=== PATIENT | female | born 2000 | race Caucasian/White ===

== ENCOUNTER 2021-02-05 17:14 | Emergency (ER) | payer MEDICAID, SELFPAY ==
[2021-02-05 17:51] VITALS: BP 141/87; PULSE 105; RESP 16; TEMP 36.3; O2SAT 99; BMI 36.2
--- NOTE | 2021-02-05 18:11 | ECG_ITS ---
[facility], 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 Measurements Intervals [place] Rate: 95 P: 65 OK: 169 QRS: 14 QRSD: 85 T: 30 QT: 353 QTc: 444 Interpretive Statements SINUS RHYTHM POSSIBLE LEFT ATRIAL ENLARGEMENT [-0.1mV P WAVE IN V1/V2] LOW QRS VOLTAGE IN PRECORDIAL LEADS [QRS DEFLECTION < 1.0 mV IN CHEST LEADS] No previous ECG available for comparison Electronically Signed On 02-06-2021 7:34:13 CDT by Christina Freeman M.D. [id number]
--- NOTE | 2021-02-05 18:56 | ED_ITS ---
HPI - General Adult General: Chief complaint: General Medical Stated complaint: heartburn Time Seen by Provider: 02/05/21 18:56 History of Present Illness: HPI narrative: 20-year-old female comes in today with epigastric abdominal pain. Patient reports that she has problems with GERD. Patient this time takes omeprazole twice a day. Patient reports has been worse over the last few weeks. Patient appears well. Patient appears in mild to moderate discomfort. Patient does report that she has had seek treatment at the ER one time before and received a GI cocktail with good results. Patient denies any blood in vomit or stool. Patient reports irregular bowel movements. Patient denies any other symptoms or concerns. Associated symptoms: Reports nausea Review of Systems General: Reports: 10 or more systems reviewed and unremarkable except in HPI and below GI: Reports: abdominal pain and nausea [facility] ED Female Reproductive History: Date of last menstrual period: 01/26/21 Physical Exam Const: COMMON NORMALS: no acute distress and patient oriented x3 GENERAL APPEARANCE: cooperative HENMT: COMMON NORMALS: normocephalic, TM's normal bilaterally and Normal external nose present HEAD & SCALP: normal to inspection and normocephalic NOSE: Normal external nose present TYMPANIC MEMBRANE: TM's normal bilaterally MOUTH: Normal oral and palatal mucosa present THROAT: posterior oropharynx normal Eye: GENERAL EYE: appearance normal, both eyes and all related structures Neck/C-Spine: COMMON NORMALS: full ROM Lymph: LYMPHATIC: no lymphadenopathy noted Chest: COMMONS NORMALS: normal inspection of the chest Resp: COMMON NORMALS: normal respiratory effort EFFORT & INSPECTION: Yes able to speak in complete sentences Cardio: COMMON NORMALS: regular rate and regular rhythm RATE: regular rate RHYTHM: regular rhythm GI: COMMON NORMALS: Soft to palpation PALPATION: Yes Soft to palpation, Yes Tenderness to palpation present (GI) (epigastric), No Guarding due to palpation present (GI) and No Rebound tenderness present : COMMON NORMALS: Yes no CVA tenderness BLADDER/KIDNEY EXAM: Yes no CVA tenderness Back/Pelvis: COMMON NORMALS: no CVA tenderness and thoracic and lumbar spine normal to inspection Extremity: COMMON NORMALS: normal to inspection Neuro: COMMON NORMALS: patient oriented x3 and moves all extremities Psych: COMMON NORMALS: mental status grossly normal and cooperative Skin: COMMON NORMALS: no rashes or lesions noted GENERAL SKIN EXAM: no rashes or lesions noted Course Vital Signs: Vital signs: Vital Signs Temperature 97.3 F L 02/05/21 17:51 Pulse Rate 105 H 02/05/21 17:51 Respiratory Rate 16 02/05/21 17:51 Blood Pressure 141/87 02/05/21 17:51 Pulse Oximetry 99 02/05/21 17:51 MDM - General Adult MDM Narrative: Medical decision making narrative: 20-year-old female comes in today with complaints of epigastric discomfort. Patient reports this is similar to previous episodes of her exacerbation of gastritis. On exam abdomen soft nontender. Some mild tenderness is noted with deep palpation of the midepigastrium. Respirations are even lungs are clear to auscultation. Vital signs are normal. Differential diagnosis includes but not limited to gallbladder disease, GERD, peptic ulcer disease, gastritis. Laboratory values were unremarkable except for some mild anemia. Metabolic panel and liver enzymes were normal. Urinalysis was clear. Feel the patient probably has an exacerbation of her gastritis. We will change omeprazole to pantoprazole 40 mg twice a day for the next 10 days. Patient will also be set up with specialist for EGD for further evaluation and treatment. Patient was agreeable to plan and need for follow-up appointment. Lab Data: Labs: Lab Results 02/05/21 02/05/21 02/05/21 Range/Units 19:10 19:10 19:25 WBC 12.8 (4.5-13.0) 10^3/ uL RBC 3.66 L (4.1-5.3) 10^6/u L Hgb 10.3 L (11.5-15.3) g/dL Hct 31.9 L (37.0-47.0) % MCV 87.2 (81-99) fL MCH 28.1 (28.0-34.0) pg MCHC 32.3 (30.0-36.0) g/dL RDW 12.6 (12.1-15.1) % Plt Count 424 H (130-400) 10^3/c mm MPV 8.8 (7.4-10.4) fL Neut % (Auto) 64.7 % Lymph % (Auto) 28.4 % [place] % (Auto) 5.5 % Eos % (Auto) 0.5 % Baso % (Auto) 0.5 % Neut # (Auto) 8.26 H (1.8-8.0) 10^3/u L Lymph # (Auto) 3.6 (1.5-6.5) 10^3/u L [place] # (Auto) 0.7 (0.2-0.9) 10^3/u L Eos # (Auto) 0.1 (0.0-0.8) 10^3/u L Baso # (Auto) 0.1 (0.0-0.1) 10^3/u L Nucleated RBC % (a uto) 0 % Nucleated RBCs # 0.0 /100WBC Sodium 138 (136-145) mmol/L Potassium 4.3 (3.5-5.1) mmol/L Chloride 103 (98-107) mmol/L Carbon Dioxide 23 (22-29) mmol/L Anion Gap 16.3 (5-19) BUN 9 (6-20) mg/dL Creatinine 0.5 (0.5-0.9) mg/dL GFR Calculation 157.3 H (90-130) mL/min Glucose 79 (65-115) mg/dL Calculated Osmolal ity 284 L (285-295) mOsm/k g Calcium 9.2 (8.5-10.5) mg/dL Total Bilirubin 0.3 (0.15-1.2) mg/dL AST 16 (0-32) U/L ALT 14 (0-33) U/L Alkaline Phosphata se 91 (35-105) IU/L Total Protein 7.2 (6.6-8.7) g/dL Albumin 4.6 (3.5-5.2) g/dL Globulin 2.6 (1.3-4.6) g/dL Lipase 21 (13-60) U/L Ser , Cedric i-Qnt 0.50 mIU/mL Urine Color Yellow (Yellow) Urine Appearance Clear (CLEAR) Urine pH 5 (5-7) Ur Specific Gravit y 1.015 (1.005-1.030) Urine Protein Neg (Negative) Urine Glucose (UA) Norm (Normal) Urine Ketones Negative (Negative) Urine Blood Neg (Negative) Urine Nitrate Negative (Negative) Urine Bilirubin Neg (Negative) Urine Urobilinogen Norm (Negative) mg/dL Ur Leukocyte Cynthia ase Negative (Negative) EKG Data^: EKG 1: Attestation: I personally reviewed and interpreted this EKG as follows: (191, EKG shows a sinus rhythm with a regular rate at 95 bpm, no ST elevation, no ectopy, no prior exam is available for comparison.) Discharge Plan Discharge Patient Disposition: Home Clinical Impression: Gastritis Qualifiers: Gastritis type: unspecified gastritis Chronicity: chronic Gastritis bleeding: presence of bleeding unspecified Qualified Code(s): K29.50 - Unspecified chronic gastritis without bleeding Condition: Stable Prescriptions: New pantoprazole 40 mg tablet,delayed release (DR/EC) 40 mg PO BID 10 Days Qty: 20 RF: 0 Discharge Orders: Discharge ED (Routine); Ordered 02/05/21 Ordered By: Dc Osullivan Discharge Diet: Usual diet Discharge Activity: Increase activity as tolerated Patient Instructions: Diet for Ulcers and Gastritis (ED), Opioid Safety Activity Restrictions/Additional Instructions: Avoid carbonated beverages. Avoid eating 2 hours prior to laying down at bedtime. Avoid any caffeinated beverages, nicotine-containing products, or other foods that aggravate abdomen. Take medication 30 minutes prior to each meal for the next 10 days. Follow-up with primary care for further treatment. Case management will contact you regarding an appointment with a surgeon or GI specialist for EGD for further evaluation of gastritis. Return to the emergency department for high fever, or blood in vomit or stool. Coding Level of Care Code ED Flight Control Specialist for Chg Fwd Exam Comprehensive
[2021-02-05] MEDS: sodium chloride 0.9% 1,000 ML 999 ML IV (19:10)
[2021-02-05] MEDS: lidocaine 2% viscous 15 ML, aluminum-mag hydrox-simethicon 30 ML, sucralfate oral liq 1 GM PO (19:23)
[2021-02-05 19:31] LABS: Basophils # 0.1 10^3/uL (0.0-0.1); Basophils % 0.5 %; Eosinophils # 0.1 10^3/uL (0.0-0.8); Eosinophils % 0.5 %; Hematocrit 31.9 % (37.0-47.0); Hemoglobin 10.3 g/dL (11.5-15.3); Lymphocytes # 3.6 10^3/uL (1.5-6.5); Lymphocytes % 28.4 %; Mean Corpuscular HGB Conc 32.3 g/dL (30.0-36.0); Mean Corpuscular Hemoglobin 28.1 pg (28.0-34.0); Mean Corpuscular Volume 87.2 fL (81-99); Mean Platelet Volume 8.8 fL (7.4-10.4); Monocytes # 0.7 10^3/uL (0.2-0.9); Monocytes % 5.5 %; Neutrophils # 8.26 10^3/uL (1.8-8.0); Neutrophils % 64.7 %; Nucleated Red Blood Cells % 0 %; Platelet Count 424 10^3/cmm (130-400); Red Blood Count 3.66 10^6/uL (4.1-5.3); Red Cell Distribution Width 12.6 % (12.1-15.1); White Blood Count 12.8 10^3/uL (4.5-13.0)
[2021-02-05 19:57] LABS: Add Urine Microscopic? NO; Charge for UA Resulting for Rev
[2021-02-05 20:29] LABS: Alanine Aminotransferase 14 U/L (0-33); Albumin Level 4.6 g/dL (3.5-5.2); Alkaline Phosphatase 91 IU/L (35-105); Anion Gap 16.3 (5-19); Aspartate Amino Transferase 16 U/L (0-32); Blood Urea Nitrogen 9 mg/dL (6-20); Calcium 9.2 mg/dL (8.5-10.5); Carbon Dioxide 23 mmol/L (22-29); Chloride 103 mmol/L (98-107); Globulin 2.6 g/dL (1.3-4.6); Glomerular Filtration Rate 157.3 mL/min (90-130); Glucose 79 mg/dL (65-115); Lipase 21 U/L (13-60); Osmolality Calculated 284 mOsm/kg (285-295); Potassium 4.3 mmol/L (3.5-5.1); Sodium 138 mmol/L (136-145); Total Bilirubin 0.3 mg/dL (0.15-1.2); Total Protein 7.2 g/dL (6.6-8.7)
[2021-02-05 20:38] LABS: Bilirubin Urine Neg (Negative); Blood Urine Neg (Negative); Glucose Urine UA Norm (Normal); Ketones Urine Negative (Negative); Leukocyte Esterase Urine Negative (Negative); Nitrate Urine Negative (Negative); Protein Urine Neg (Negative); Specific Gravity, Urine 1.015 (1.005-1.030); Urine Appearance Clear (CLEAR); Urine Color Yellow (Yellow); Urobilinogen Urine Norm (Negative); pH Urine 5 (5-7)
[2021-02-05] MEDS: pantoprazole 40 mg SDV IVP (21:17)
--- NOTE | 2021-02-05 21:18 | PC.NURSE ---
protonix was administered at 2044 as ordered
[2021-02-05 21:19] VITALS: BP 138/82; PULSE 85; RESP 18; O2SAT 100
--- NOTE | 2021-02-05 21:19 | PC.NURSE ---
patient states she is feeling a little better now
--- NOTE | 2021-02-10 10:01 | DCPLANNER ---
global project manager had message to schedule a follow up appointment for patient with general surgery for EGD. global project manager emailed patients information to both Malinda and Patsy at [facility] General Surgery. Patients information will be printed and reviewed. Clinic will call patient with appointment information.
--- NOTE | 2021-02-12 15:18 | DCPLANNER ---
Patient has a follow up appointment scheduled for Thursday, February 18, 2021 at 8:[address] Menchaca at [facility] General Surgery. Clinic will call patient with appointment information.
--- NOTE | 2021-02-20 13:47 | DCPLANNER ---
Patient had a follow up appointment scheduled for 02.18.21 with general surgery - patient did attend appointment.
== END 2021-02-05 21:20 | disposition home or self-care (01) ==
PROVIDERS: Emergency Medicine; Emergency Provider Nurse Practitioner Family
DX: K29.50 Unspecified chronic gastritis without bleeding (principal); K21.9 Gastro-esophageal reflux disease without esophagitis
CPT/HCPCS: 80053; 81003; 83690; 84702; 85025; 93005; 96361; 96374; 99283; C9113; J7030

== ENCOUNTER 2021-02-12 16:25 | Emergency (ER) | payer MEDICAID, SELFPAY ==
--- NOTE | 2021-02-12 16:31 | XRR_ITS ---
PROCEDURE INFORMATION: Exam: XR Left Wrist Exam date and time: 02/12/2021 4:31 PM Age: 20 years old Clinical indication: Pain and injury or trauma; Fall; Blunt trauma (contusions or hematomas) and sprain or strain; Wrist; Left; Injury date: 02/12/21; Injury details: Fell while playing with dog TECHNIQUE: Imaging protocol: XR Left wrist. Views: 3 or more views. COMPARISON: No relevant prior studies available. FINDINGS: Bones/joints: Normal. Soft tissues: Normal. XR/XR wrist LT min 3V* [id number] IMPRESSION: No acute findings.
[2021-02-12 16:32] VITALS: BP 131/81; PULSE 93; RESP 18; TEMP 37.1; O2SAT 97
--- NOTE | 2021-02-12 16:52 | W.ED.UPPEXIN ---
HPI - Extremity Injury (Upper) General: Chief Complaint: Extremity Injury, Upper Stated Complaint: left wrist injury Time Seen by Provider: 02/12/21 16:39 Source: patient Mode of arrival: ambulatory Limitations: no limitations History of Present Illness: HPI narrative: Patient is a nice 20-year-old female presents to ED today for evaluation following a left wrist injury. Patient tells me she was at outside when her dog accidentally tripped her causing her to fall onto her wrist. She has no other injuries or concerns regarding the fall. MD complaint: injury to: left and wrist Onset (ago): hour(s) Place: home Severity: moderate Relieving factors: immobilization Exacerbating factors: movement of extremity Context: fall Associated symptoms: Reports no associated symptoms; Denies neck pain or weakness in extremities Review of Systems Musc: Reports: joint pain (L wrist); Denies: neck pain, back pain, extremity pain, extremity swelling or joint swelling Neuro: Denies: numbness in extremities, weakness in extremities or sensory changes [facility] ED Female Reproductive History: Date of last menstrual period: 01/26/21 Physical Exam Const: COMMON NORMALS: no acute distress, average body habitus, patient oriented x3, no limitations, healthy appearing, alert and well nourished Extremity: GENERAL: Yes normal exam except as noted LEFT UPPER EXTREMITY: Yes wrist (TTP distal radial/ulnar wrist; no deformity) Left wrist: Yes ROM (full but painful ROM) and Yes neurovascular exam (normal) Neuro: COMMON NORMALS: patient oriented x3, moves all extremities, no focal motor deficits and no sensory deficits noted SENSORIUM/ORIENTATION: Yes alert Skin: COMMON NORMALS: no rashes or lesions noted GENERAL SKIN EXAM: no rashes or lesions noted TRAUMA: no lacerations or abrasions Course Vital Signs: Vital signs: Vital Signs Temperature 98.7 F 02/12/21 16:32 Pulse Rate 93 02/12/21 16:32 Respiratory Rate 18 02/12/21 16:32 Blood Pressure 131/81 02/12/21 16:32 Pulse Oximetry 97 02/12/21 16:32 MDM - Extremity Injury (Upper) Imaging Data^: XR L wrist: My impression: NAD Discharge Plan Discharge Patient Disposition: Home Clinical Impression: Left wrist sprain Qualifiers: Encounter type: initial encounter Qualified Code(s): S63.502A - Unspecified sprain of left wrist, initial encounter Condition: Stable Prescriptions: No Action pantoprazole 40 mg tablet,delayed release (DR/EC) 40 mg PO BID 10 Days Qty: 20 RF: 0 Discharge Orders: Discharge ED (Routine); Ordered 02/12/21 Ordered By: Kandace Gonzales Patient Instructions: Wrist Sprain (ED) Coding Level of Care Code ED Field Sales Representative for Yesica Manzo
[2021-02-12 17:07] VITALS: PULSE 88
[2021-02-12 17:09] VITALS: PULSE 88; RESP 18; TEMP 37.1; O2SAT 97
== END 2021-02-12 17:10 | disposition home or self-care (01) ==
PROVIDERS: Emergency Provider Physician Assistant
DX: S63.502A Unspecified sprain of left wrist, initial encounter (principal); W01.0XXA Fall on same level from slipping, tripping and stumbling without subsequent striking against object, initial encounter
CPT/HCPCS: 73110; 99282

== ENCOUNTER → 2021-02-17 15:37 | Outpatient (BNVA) | payer OTHER, MEDICAID, SELFPAY | PROVIDERS: Referring Provider Nurse Practitioner; Visit Provider Specialist | DX: S63.502A Unspecified sprain of left wrist, initial encounter (principal); M25.522 Pain in left elbow; G56.22 Lesion of ulnar nerve, left upper limb; M79.642 Pain in left hand; X58.XXXA Exposure to other specified factors, initial encounter | CPT/HCPCS: 73080; 73110 ==

== ENCOUNTER 2021-03-06 21:46 | Emergency (ER) | payer MEDICAID, SELFPAY ==
[2021-03-06 21:59] VITALS: BP 124/70; PULSE 80; RESP 16; TEMP 36.9; O2SAT 98; BMI 35.9
--- NOTE | 2021-03-06 22:01 | ED_ITS ---
HPI - URI/Sore Throat General: Chief Complaint: Ear Stated Complaint: Ear Pain Time Seen by Provider: 03/06/21 22:01 History of Present Illness: HPI Narrative: 20-year-old female comes in today with complaints of ear pain to the right ear. Patient reports pain for the last 3 days. 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 Associated symptoms: Reports ear or mastoid pain (Right) Review of Systems General: Reports: 10 or more systems reviewed and unremarkable except in HPI and below ENMT: Reports: ear or mastoid pain (Right) PFSH ED PFSH: Medical History Anxiety GERD (gastroesophageal reflux disease) Surgical History History of left knee surgery History of tonsillectomy and adenoidectomy Social History Smoking and tobacco status: never smoked Female Reproductive History: Date of last menstrual period: 01/26/21 Physical Exam Const: COMMON NORMALS: no acute distress and patient oriented x3 GENERAL APPEARANCE: cooperative HENMT: COMMON NORMALS: normocephalic and Normal external nose present HEAD & SCALP: normal to inspection and normocephalic NOSE: Normal external nose present TYMPANIC MEMBRANE: TM abnormal TM laterality: right Details: bulging, dull and erythematous and left Details: scarred MOUTH: Normal oral and palatal mucosa present Eye: GENERAL EYE: appearance normal, both eyes and all related structures Neck/C-Spine: COMMON NORMALS: full ROM Chest: COMMONS NORMALS: normal inspection of the chest Resp: COMMON NORMALS: normal respiratory effort EFFORT & INSPECTION: Yes able to speak in complete sentences Cardio: COMMON NORMALS: regular rate and regular rhythm RATE: regular rate RHYTHM: regular rhythm GI: COMMON NORMALS: non-tender Extremity: COMMON NORMALS: normal to inspection Neuro: COMMON NORMALS: patient oriented x3 and moves all extremities Psych: COMMON NORMALS: mental status grossly normal and cooperative Skin: COMMON NORMALS: no rashes or lesions noted GENERAL SKIN EXAM: no rashes or lesions noted Course Vital Signs: Vital signs: Vital Signs Temperature 98.4 F 03/06/21 21:59 Pulse Rate 80 03/06/21 21:59 Respiratory Rate 16 03/06/21 21:59 Blood Pressure 124/70 03/06/21 21:59 Pulse Oximetry 98 03/06/21 21:59 MDM - URI/Sore Throat MDM Narrative: Medical decision making narrative: Patient comes in today with complaints of pain to the right ear. Patient reports discomfort for the last 3 days. On exam we note erythema and bulging to the right tympanic membrane. Left TM is scarred. Respirations are even lungs are clear to auscultation. Skin is warm and dry. Differential diagnosis includes sinusitis, otitis media, otitis externa. Reviewed exam with patient recommended treatment with antibiotics for infection. Patient was also given a dose of steroid for pain and swelling. Patient reported understanding of care plan and need for follow- up or return to the ER. Discharge Plan Discharge Patient Disposition: Home Clinical Impression: Otitis media Qualifiers: Otitis media type: suppurative Chronicity: acute Laterality: right Recurrence: not specified as recurrent Spontaneous tympanic membrane rupture: without spontaneous rupture Qualified Code(s): H66.001 - Acute suppurative otitis media without spontaneous rupture of ear drum, right ear Condition: Stable Prescriptions: New Augmentin 875-125 mg tablet 1 tab PO BID Qty: 14 RF: 0 No Action Dexilant 60 mg capsule,biphase delayed releas 60 mg PO DAILY Qty: 30 RF: 2 sucralfate 1 gram tablet 1 g PO TID Qty: 90 RF: 0 venlafaxine [Effexor XR] 37.5 mg capsule,extended release 24hr 37.5 mg PO DAILY RF: 0 Discharge Orders: Discharge ED (Routine); Ordered 03/06/21 Ordered By: Dc Osullivan Discharge Diet: Usual diet Discharge Activity: Increase activity as tolerated Patient Instructions: Otitis Media (ED), Opioid Safety Activity Restrictions/Additional Instructions: Take antibiotic twice a day for the next 7 days. Use acetaminophen and ibuprofen for pain. Use warm packs to the ear for further comfort. Follow-up with primary care as needed. Return to the ER for new concerns or worsening symptoms. Coding Level of Care Code ED Mushroom Picker for Yesica Manzo
[2021-03-06] MEDS: dexamethasone 4 mg Tablet 10 MG PO (22:18)
[2021-03-06] MEDS: amoxicillin-clav 875-125 mg Tablet 1 TAB PO (22:18)
[2021-03-06] MEDS: ibuprofen 600 mg Tablet PO (22:19)
== END 2021-03-06 22:39 | disposition home or self-care (01) ==
PROVIDERS: Emergency Provider Nurse Practitioner Family
DX: H66.001 Acute suppurative otitis media without spontaneous rupture of ear drum, right ear (principal)
CPT/HCPCS: 99283; J8540

== ENCOUNTER 2021-05-04 13:35 | Emergency (ER) | payer MEDICAID, SELFPAY ==
[2021-05-04 13:41] VITALS: BP 141/87; PULSE 89; RESP 18; TEMP 36.9; O2SAT 100; BMI 35.6
--- NOTE | 2021-05-04 13:53 | XRR_ITS ---
PROCEDURE INFORMATION: Exam: XR Chest Exam date and time: 05/04/2021 1:53 PM Age: 20 years old Clinical indication: Cough and shortness of breath; Additional info: Cough/sob TECHNIQUE: Imaging protocol: XR of the chest. Views: 1 view. COMPARISON: CR Shoulder 2+ views LEFT* [id number] 12/24/2018 6:36 PM FINDINGS: Lungs: Unremarkable. No consolidation. Pleural spaces: Unremarkable. No pleural effusion. No pneumothorax. Heart/Mediastinum: Unremarkable. No cardiomegaly. Bones/joints: Unremarkable. XR/XR chest 1V portable [id number] IMPRESSION: No acute findings. Radiation Dose CTDIVOL = (mGy): DLP = (mGy-cm)
--- NOTE | 2021-05-04 13:54 | W.ED.COVID ---
HPI - COVID General: Chief Complaint: COVID symptoms Stated Complaint: DIFF BREATHING,LOSS VOICE,COUGH,FATIGUESNEEZE,H/A Time Seen by Provider: 05/04/21 13:46 Triage information: Has fever, cough or shortness of breath. History of Present Illness: HPI Narrative: Patient is a 20-year-old female comes to the ED with upper respiratory symptoms. Patient says symptoms started approximately 1 week ago. She endorses having body aches, cough, sore throat and some shortness of breath. Her symptoms started a week ago with a very severe sore throat. She says her sore throat is not gotten any better over the past week. She has also developed nasal drainage congestion and a cough that she describes as being productive in the mornings with a yellowish-green sputum. She has also lost her voice. Patient is fully vaccinated for COVID-19. She does endorse being around a person a week ago who was diagnosed with mono. Patient has had her tonsils removed when she was younger. Denies any fever, chills, abdominal pain, nausea/vomiting, bladder or bowel symptoms. COVID 19 common symptoms: positive non-productive cough, dyspnea, body aches and throat pain; negative fever(s), chills, productive cough, fatigue, headache(s), nasal congestion, nausea, vomiting or diarrhea COVID 19 other sytmptoms: negative chest pain COVID Results: SARS-CoV-2 Antigen (Rapid) Negative (Negative) 05/04/21 14:17 05/04/21 Review of Systems Const: Reports: body aches; Denies: fever(s), chills or fatigue Eyes: Denies: change in vision or eye discomfort ENMT: Reports: throat pain; Denies: odynophagia, nasal discharge or nasal congestion Card: Denies: chest pain, palpitations, edema, swelling of feet/ankles, dyspnea on exertion or orthopnea Resp: Reports: dyspnea and non-productive cough; Denies: productive cough GI: Denies: abdominal pain, nausea, vomiting, diarrhea, constipation or hematochezia : Denies: flank pain, dysuria or hematuria Musc: Denies: neck pain, back pain or extremity swelling Skin/Breast: Denies: rash or new lesions Neuro: Denies: headache(s), numbness in extremities or weakness in extremities PFSH ED PFSH: Medical History Anxiety GERD (gastroesophageal reflux disease) Surgical History History of left knee surgery History of tonsillectomy and adenoidectomy Female Reproductive History: Date of last menstrual period: 01/26/21 Physical Exam Const: COMMON NORMALS: no acute distress, patient oriented x3, healthy appearing and alert GENERAL APPEARANCE: cooperative and comfortable HENMT: COMMON NORMALS: normocephalic HEAD & SCALP: normocephalic MOUTH: Normal oral and palatal mucosa present THROAT: posterior oropharynx normal, uvula midline, posterior oropharynx abnormal erythema; no exudates and tonsils absent Eye: COMMON NORMALS: Equal, round and reactive pupils present PUPIL: Yes Equal, round and reactive pupils present Neck/C-Spine: COMMON NORMALS: supple GENERAL: Yes normal visual inspection Resp: COMMON NORMALS: normal respiratory effort, No retractions, No use of accessory muscles and clear to auscultation bilaterally AUSCULTATION: clear to auscultation bilaterally Cardio: COMMON NORMALS: regular rate, regular rhythm, S1 normal heart sound present, S2 normal heart sound present, No gallops present (Cardio), No clicks present (Cardio), No murmurs present (Cardio) and Peripheral pulses 2+ throughout RATE: regular rate RHYTHM: regular rhythm HEART SOUNDS: S1 normal heart sound present and S2 normal heart sound present PERIPHERAL PULSES: Peripheral pulses 2+ throughout GI: COMMON NORMALS: Normal to inspection, nondistended, normoactive bowel sounds present, Soft to palpation, non-tender and no masses PALPATION: Yes Soft to palpation : COMMON NORMALS: Yes no CVA tenderness BLADDER/KIDNEY EXAM: Yes no CVA tenderness Back/Pelvis: COMMON NORMALS: no CVA tenderness Extremity: COMMON NORMALS: normal to inspection Neuro: COMMON NORMALS: patient oriented x3 and moves all extremities SENSORIUM/ORIENTATION: Yes alert Skin: GENERAL SKIN EXAM: dry skin Course Vital Signs: Vital signs: Vital Signs Temperature 98.5 F 05/04/21 15:10 Pulse Rate 105 H 05/04/21 15:56 Respiratory Rate 14 05/04/21 15:56 Blood Pressure 123/74 05/04/21 15:56 Pulse Oximetry 93 05/04/21 15:56 MDM - COVID MDM Narrative: Medical decision making narrative: Patient is a 20-year-old female comes to the ED with upper respiratory symptoms. She has been having a cough, sore throat nasal drainage and congestion for about a week. Patient has been fully vaccinated for COVID-19. Patient appears nontoxic and in no acute distress or pain. She has some erythema in the posterior oropharynx but no exudates and tonsils not present. Lungs are clear to auscultation bilaterally. Rest of exam was benign. Vitals are stable. Chest x-ray showed no acute findings. CBC unremarkable. Covid negative, influenza negative, strep negative and mono negative. Patient was diagnosed with upper respiratory infection and discharged home. Due to her having a sore throat for approximately a week I did send her home with amoxicillin to see if that would help her symptoms. She was told to follow-up with her PCP in 7 to 10 days reevaluation. Return to ED precautions given. Patient understood agree with plan. Lab Data: Attestation: I reviewed the patient's lab results. Labs: Lab Results 05/04/21 05/04/21 05/04/21 14:17 14:17 14:17 WBC RBC Hgb Hct MCV MCH MCHC RDW Plt Count MPV Neut % (Auto) Lymph % (Auto) [place] % (Auto) Eos % (Auto) Baso % (Auto) Neut # (Auto) Lymph # (Auto) [place] # (Auto) Eos # (Auto) Baso # (Auto) Nucleated RBC % (a uto) Nucleated RBCs # HCG, Qual Monoscreen Influenza Type A A g Negative (Negative) Influenza Type B A g Negative (Negative) SARS-CoV-2 Ag (Rap id) Negative (Negative) Group A Strep Rapi d Negative (Negative) 05/04/21 05/04/21 15:10 15:10 WBC 10.6 10^3/uL 10^3 /uL (4.5-13.0) RBC 4.76 10^6/uL 10^6 /uL (4.1-5.3) Hgb 11.7 g/dL g/dL (11.5-15.3) Hct 38.2 % % (37.0-47.0) MCV 80.3 fl L fl (81-99) MCH 24.6 pg L pg (28.0-34.0) MCHC 30.6 g/dL g/dL (30.0-36.0) RDW 15.1 % % (12.1-15.1) Plt Count 393 10^3/cmm 10^3 /cmm (130-400) MPV 9.0 fL fL (7.4-10.4) Neut % (Auto) 57.8 % % Lymph % (Auto) 33.2 % % [place] % (Auto) 6.0 % % Eos % (Auto) 2.3 % % Baso % (Auto) 0.4 % % Neut # (Auto) 6.16 10^3/uL 10^3 /uL (1.8-8.0) Lymph # (Auto) 3.5 10^3/uL 10^3/ uL (1.5-6.5) [place] # (Auto) 0.6 10^3/uL 10^3/ uL (0.2-0.9) Eos # (Auto) 0.2 10^3/uL 10^3/ uL (0.0-0.8) Baso # (Auto) 0.0 10^3/uL 10^3/ uL (0.0-0.1) Nucleated RBC % (a uto) 0 % % Nucleated RBCs # 0.0 /100WBC /100W BC HCG, Qual Negative (Negative) Monoscreen Negative (Negative) Influenza Type A A g Influenza Type B A g SARS-CoV-2 Ag (Rap id) Group A Strep Rapi d Imaging Data: CXR: Attestation: I personally reviewed and interpreted this imaging study as follows: Radiologist's impression: [address] [address] XRay Report Signed Patient: Mary Jimenez Unit #: [id number] : 2000 Age/Sex: 20 / F ADM Date: 05/04/21 Loc: ER Room/Bed: Attending Dr: Ordering Provider/Ordering MD: Calos Arcos Date of Service: 05/04/21 Procedure(s): XR chest 1V portable [id number] Accession Number(s): [id number] Report Number: [id number] PROCEDURE INFORMATION: Exam: XR Chest Exam date and time: 05/04/2021 1:53 PM Age: 20 years old Clinical indication: Cough and shortness of breath; Additional info: Cough/sob TECHNIQUE: Imaging protocol: XR of the chest. Views: 1 view. COMPARISON: CR Shoulder 2+ views LEFT* [id number] 12/24/2018 6:36 PM FINDINGS: Lungs: Unremarkable. No consolidation. Pleural spaces: Unremarkable. No pleural effusion. No pneumothorax. Heart/Mediastinum: Unremarkable. No cardiomegaly. Bones/joints: Unremarkable. XR/XR chest 1V portable [id number] IMPRESSION: No acute findings. Radiation Dose CTDIVOL = (mGy): DLP = (mGy-cm) Dictated By: Rogelio Bautista MD Signed By: Rogelio Bautista MD Signed Date/Time: 05/04/21 1451 DD/ 1353 COVID Results: SARS-CoV-2 Antigen (Rapid) Negative (Negative) 05/04/21 14:17 05/04/21 Discharge Plan Discharge Patient Disposition: Home Clinical Impression: Upper respiratory infection, acute Condition: Stable Prescriptions: New amoxicillin 500 mg tablet 500 mg PO BID 10 Days Qty: 20 RF: 0 No Action Dexilant 60 mg capsule,biphase delayed releas 60 mg PO DAILY Qty: 30 RF: 2 sucralfate 1 gram tablet 1 g PO TID Qty: 90 RF: 0 ciprofloxacin HCl [Cipro] 250 mg tablet 250 mg PO BID RF: 0 Discharge Orders: Discharge ED (Routine); Ordered 05/04/21 Ordered By: Calos Arcos Discharge Diet: Regular Discharge Activity: Increase activity as tolerated Patient Instructions: Upper Respiratory Infection (ED) Activity Restrictions/Additional Instructions: Follow-up with medical provider as directed in 5-7 days for reevaluation. Take medications as prescribed. Take [id number] Tylenol or Motrin for any pain or fevers. Drink plenty of fluids and stay hydrated. Return to the ER or your medical provider if condition worsens. Please read and understand discharge instructions. Thank you for choosing [facility] for your healthcare needs today. Please realize this is an emergency room and that we are providing you with a medical screening exam and this may not be complete and all inclusive of all the testing and or work up that you may need to determine your ailment or severity of your illness. It is very important that you follow up as instructed or that you return to the Emergency Department should you have concerns or if your condition changes or worsens in any way. Coding Level of Care Code ED Quality Control Specialist for Yesica Manoz Exam Comprehensive
[2021-05-04 15:10] VITALS: BP 138/81; PULSE 84; RESP 18; TEMP 36.9; O2SAT 98
[2021-05-04 15:12] LABS: Rapid Strep A Test Negative (Negative)
[2021-05-04 15:15] VITALS: O2SAT 100
[2021-05-04 15:17] LABS: Basophils % 0.4 %; Eosinophils # 0.2 10^3/uL (0.0-0.8); Eosinophils % 2.3 %; Hematocrit 38.2 % (37.0-47.0); Hemoglobin 11.7 g/dL (11.5-15.3); Lymphocytes # 3.5 10^3/uL (1.5-6.5); Lymphocytes % 33.2 %; Mean Corpuscular HGB Conc 30.6 g/dL (30.0-36.0); Mean Corpuscular Hemoglobin 24.6 pg (28.0-34.0); Mean Corpuscular Volume 80.3 fl (81-99); Monocytes # 0.6 10^3/uL (0.2-0.9); Neutrophils # 6.16 10^3/uL (1.8-8.0); Neutrophils % 57.8 %; Nucleated Red Blood Cells % 0 %; Platelet Count 393 10^3/cmm (130-400); Red Blood Count 4.76 10^6/uL (4.1-5.3); Red Cell Distribution Width 15.1 % (12.1-15.1); White Blood Count 10.6 10^3/uL (4.5-13.0)
[2021-05-04 15:23] LABS: SARS Covid-2 Antigen Negative (Negative)
[2021-05-04 15:28] LABS: Influenza A by IFA Negative (Negative); Influenza B by IFA Negative (Negative)
[2021-05-04 15:35] LABS: HCG, Serum Qual Negative (Negative)
[2021-05-04 15:37] LABS: Monoscreen Negative (Negative)
[2021-05-04 15:56] VITALS: BP 123/74; PULSE 105; RESP 14; O2SAT 93
== END 2021-05-04 15:54 | disposition home or self-care (01) ==
PROVIDERS: Emergency Provider Physician Assistant
DX: J06.9 Acute upper respiratory infection, unspecified (principal); Z20.822 Contact with and (suspected) exposure to COVID-19
CPT/HCPCS: 71045; 84703; 85025; 86308; 87081; 87426; 87804; 87880; 99283

== ENCOUNTER 2021-05-12 08:08 | Emergency (ER) | payer OTHER, SELFPAY ==
[2021-05-12 08:26] VITALS: BP 120/89; PULSE 70; RESP 18; TEMP 36.7; O2SAT 98; BMI 35.6
--- NOTE | 2021-05-12 08:35 | XR_ITS ---
WS: [id number] Exam: XR hand RT min 3V* [id number] Date/Time of Exam: 05/12/2021 8:38 AM Reason For Exam: 1st metacarpal/finger injury/pain Findings: No fractures, soft tissue swelling, or unusual calcifications are noted. The hand shows normal bony alignment. There is no irregularity of the bony architecture. XR/XR hand RT min 3V* [id number] IMPRESSION: Normal right hand.
--- NOTE | 2021-05-12 08:35 | W.ED.UPPEXIN ---
HPI - Extremity Injury (Upper) General: Chief Complaint: Fall Stated Complaint: R thumb injury Time Seen by Provider: 05/12/21 08:31 Source: patient Mode of arrival: ambulatory Limitations: no limitations History of Present Illness: HPI narrative: Patient is a nice 20-year-old female presents to ED today with complaint of right hand injury. Patient tells me yesterday she was running and tripped over a log and landed directly onto her right hand. She is complaining of pain mainly to the first metacarpal/digit. She has noticed mild swelling and bruising. She has no other injuries or complaints at this time. Denies any other injuries related to the fall. complaint: injury to: right and hand Onset (ago): hour(s) Other Extremity Injury: Right: hand Place: home Severity: moderate Relieving factors: immobilization Exacerbating factors: movement of extremity Context: fall Associated symptoms: Reports no associated symptoms; Denies neck pain Review of Systems Musc: Reports: extremity pain (R hand); Denies: neck pain or back pain Skin/Breast: Reports: other (no abrasions/lacerations) Neuro: Denies: numbness in extremities or sensory changes [facility] ED PFSH: Medical History Anxiety GERD (gastroesophageal reflux disease) Surgical History History of left knee surgery History of tonsillectomy and adenoidectomy Female Reproductive History: Date of last menstrual period: 05/08/21 Physical Exam Const: COMMON NORMALS: no acute distress and no limitations Extremity: GENERAL: Yes normal exam except as noted RIGHT UPPER EXTREMITY: Yes hand & digits OTHER: pt has pain to 1st metacarpal and phalanx; mild swelling and ecchymosis noted; she has no tenderness to scaphoid Neuro: COMMON NORMALS: moves all extremities, no focal motor deficits and no sensory deficits noted Skin: COMMON NORMALS: no rashes or lesions noted GENERAL SKIN EXAM: no rashes or lesions noted TRAUMA: no lacerations or abrasions Course Vital Signs: Vital signs: Vital Signs Temperature 98.2 F 05/12/21 08:39 Pulse Rate 77 05/12/21 08:39 Respiratory Rate 18 05/12/21 08:39 Blood Pressure 120/89 05/12/21 08:39 Pulse Oximetry 99 05/12/21 08:39 MDM - Extremity Injury (Upper) Imaging Data^: XR R hand: Radiologist's impression: [address] [address] XRay Report Signed Patient: Mary Jimenez Unit #: [id number] : 2000 Age/Sex: 20 / F ADM Date: 05/12/21 Loc: ER Room/Bed: Attending Dr: Ordering Provider/Ordering MD: Kandace Gonzales Date of Service: 05/12/21 Procedure(s): XR hand RT min 3V* 39143 Accession Number(s): [id number] Report Number: [id number] WS: [id number] Exam: XR hand RT min 3V* [id number] Date/Time of Exam: 05/12/2021 8:38 AM Reason For Exam: 1st metacarpal/finger injury/pain Findings: No fractures, soft tissue swelling, or unusual calcifications are noted. The hand shows normal bony alignment. There is no irregularity of the bony architecture. XR/XR hand RT min 3V* [id number] IMPRESSION: Normal right hand. Dictated By: Mat Swann DO Signed By: Mat Swann DO Signed Date/Time: 05/12/2154 DD/ 0850 Discharge Plan Discharge Patient Disposition: Home Clinical Impression: Sprain of hand, right Qualifiers: Encounter type: initial encounter Qualified Code(s): S63.91XA - Sprain of unspecified part of right wrist and hand, initial encounter Condition: Stable Prescriptions: No Action Dexilant 60 mg capsule,biphase delayed releas 60 mg PO DAILY Qty: 30 RF: 2 sucralfate 1 gram tablet 1 g PO TID Qty: 90 RF: 0 ciprofloxacin HCl [Cipro] 250 mg tablet 250 mg PO BID RF: 0 amoxicillin 500 mg tablet 500 mg PO BID 10 Days Qty: 20 RF: 0 Discharge Orders: Discharge ED (Routine); Ordered 05/12/21 Ordered By: Kandace Gonzales Stand Alone Forms: Work/School Release Coding Level of Care Code ED Command Center Analyst for Chg Fwd Exam Expanded Problem Focused
[2021-05-12 08:39] VITALS: BP 120/89; PULSE 77; RESP 18; TEMP 36.8; O2SAT 99
[2021-05-12 09:08] VITALS: BP 118/70; PULSE 75; RESP 17; O2SAT 100
== END 2021-05-12 09:09 | disposition home or self-care (01) ==
PROVIDERS: Emergency Provider Physician Assistant
DX: S63.91XA Sprain of unspecified part of right wrist and hand, initial encounter (principal); W18.09XA Striking against other object with subsequent fall, initial encounter; Z20.822 Contact with and (suspected) exposure to COVID-19
CPT/HCPCS: 73130; 87635; 99282

== ENCOUNTER 2021-05-15 10:40 | Day surgery (SDC) | payer MEDICAID, SELFPAY ==
[2021-03-21 13:29] VITALS: BMI 36.2
[2021-05-14 14:36] VITALS: BMI 35.7
--- NOTE | 2021-05-15 11:18 | P.HP_ITS ---
Same Day Surgery H&P Indication for Procedure/HPI DATE OF PROCEDURE: May 16, 2021 CHIEF COMPLAINT/INDICATIONFOR SURGICAL PROCEDURE: diarrhea/gerd PREOP DIAGNOSIS: gi PLANNED PROCEDRUE: Operation Date: 03/27/21 13:15 Proposed Procedures p EGD/colon 37386 62974 K21.9 K52.9(Not Applicable) - Jakub Menchaca MD s Colonoscopy(Not Applicable) - Jakub Menchaca MD Operation Date: 05/15/21 12:00 Proposed Procedures p EGD/Colon 47574 K21.9(Not Applicable) - Jakub Menchaca MD s Colonoscopy 26528 K52.9(Not Applicable) - Jakub Menchaca MD Medications/Allergies* Home Medications Medication Instructions Recorded Confirmed Type ciprofloxacin HCl 250 mg tablet 250 mg PO BID 03/17/21 05/15/21 History Allergies/Adverse Reactions Allergy/AdvReac Type Severity Reaction Status Date / Time No Known Allergies Allergy Verified 05/15/21 11:54 Pertinent History/Comorbid Conditions* Medical History (Updated 05/12/21 @ 08:58 by MAIRA Powell) Anxiety GERD (gastroesophageal reflux disease) Surgical History (Updated 05/15/21 @ 13:05 by Jakub Menchaca MD) H/O esophagogastroduodenoscopy (05/15/21) History of left knee surgery History of tonsillectomy and adenoidectomy Status post colonoscopy (05/15/21) Pertinent Exam Findings alert, oriented x 3 and regular rate & rhythm Recommendations Surgery/Procedure today Coding Level of Care Code Acute Public Services Librarian for Yesica Manzo
--- NOTE | 2021-05-15 11:42 | ANES.PREANE2 ---
Pre-Anesthetic Assessment Pre-Anesthetic Assessment: Height/Weight: Height 1.65 m Weight 97.522 kg Preop Diagnosis: gi Proposed Procedure: Operation Date: 03/27/21 13:15 Proposed Procedures p EGD/colon 84435 49031 K21.9 K52.9(Not Applicable) - Jakub Menchaca MD s Colonoscopy(Not Applicable) - Jakub Menchaca MD Operation Date: 05/15/21 12:00 Proposed Procedures p EGD/Colon 82976 K21.9(Not Applicable) - Jakub Menchaca MD s Colonoscopy 30044 K52.9(Not Applicable) - Jakub Menchaca MD Was Beta Vinnie taken within 24 hours: N/A Was Clonidine taken within 24 hours: N/A Social: Social History: No alcohol and No tobacco Exam: Pre-Anes Outpt Exam: alert and oriented x 3 Airway: Submandibular: WNL Cervical ROM: WNL MP: 1 Dentition: Full History/ROS: No significant history except as noted Pulmonary: Pulmonary: None reported CV/HEM: CV/HEM: None reported : : None reported Hepatic: Hepatic: None reported GI: GI: GERD Metabolic: Metabolic: None reported Musc/skel: Musc/skel: None reported Neuropsych: Neuropsych: Anxiety Anesthetic Plan: ASA status: 2 Anesthesia: Anesthesia Evaluation and MAC Risk of > 500 ml blood loss (7ml/kg in children): No PFSH Anesthesia PFSH: Medical History Anxiety GERD (gastroesophageal reflux disease) Surgical History History of left knee surgery History of tonsillectomy and adenoidectomy Female Reproductive History: Date of last menstrual period: 05/08/21 Data Anesthesia Cardiac Studies: No Data to Display
[2021-05-15 11:45] VITALS: BP 123/85; PULSE 94; RESP 18; TEMP 36.5; O2SAT 98
[2021-05-15] MEDS: sodium chloride 0.9% 1,000 ML 30 ML IV (11:50)
[2021-05-15 11:57] LABS: OR HCG Qualitative Urine Negative (Negative)
[2021-05-15 13:08] VITALS: BP 117/86; PULSE 88; RESP 16; TEMP 36.1; O2SAT 100
[2021-05-15 13:25] VITALS: BP 112/77; PULSE 85; RESP 16; O2SAT 98
--- NOTE | 2021-05-15 13:35 | ANE.PACU2 ---
Inpatient post-anesthesia follow up: Airway intact: Yes Vital signs: Temperature 97.0 F Pulse Rate 85 Respiratory Rate 16 Blood Pressure 112/77 Pulse Oximetry 98 Oxygen Delivery Me thod Room Air Oxygen Flow Rate 4 Fraction of Inspir ed Oxygen Hydration adequate: Yes Nausea and vomiting: No Pain level: 1 Mental status: Baseline
== END 2021-05-15 13:30 | disposition home or self-care (01) ==
PROVIDERS: Anesthesiology; Visit Provider Surgery
PROC: 0DJ08ZZ Inspection of Upper Intestinal Tract, Via Natural or Artificial Opening Endoscopic (ICD-10-PCS; CPT 43235; principal; 2021-05-15 12:00)
PROC: 0DJD8ZZ Inspection of Lower Intestinal Tract, Via Natural or Artificial Opening Endoscopic (ICD-10-PCS; CPT 45378; 2021-05-15 12:00)
DX: R19.7 Diarrhea, unspecified (principal); K29.50 Unspecified chronic gastritis without bleeding; K21.9 Gastro-esophageal reflux disease without esophagitis; Z87.19 Personal history of other diseases of the digestive system
CPT/HCPCS: 43239; 45380; 82274; 83630; 84703; 87493; 87506; 88305; 96360; 96361; J2704; J7030

== ENCOUNTER 2021-07-14 02:12 | Emergency (ER) | payer MEDICAID, SELFPAY ==
[2021-07-14 02:21] VITALS: BP 142/90; PULSE 93; RESP 18; TEMP 36.6; O2SAT 99; BMI 34.9
--- NOTE | 2021-07-14 03:16 | ED_ITS ---
HPI - Allergic Reaction General: Chief complaint: Allergic Reaction Stated complaint: Possible Allergic reaction Time Seen by Provider: 07/14/21 03:14 Source: patient Mode of arrival: ambulatory Limitations: no limitations History of Present Illness: HPI narrative: 21-year-old female states she had a rash to her back arms and lip swelling this morning took a Benadryl and it imp roved she states that started getting a rash again tonight. States it is very pruritic in nature and she had hives to both of her arms. Denies any difficulty breathing or swallowing. She denies any history of allergic reactions does not know of anything she is came into contact with that she could be allergic to. Associated symptoms: Deny abdominal pain, nausea or vomiting Review of Systems Const: Denies: fever(s), chills, body aches or change in appetite Eyes: Denies: blurry vision or eye discomfort ENMT: Denies: throat pain or dental pain Card: Denies: chest pain Resp: Denies: dyspnea GI: Denies: abdominal pain, nausea, vomiting or diarrhea : Denies: dysuria Musc: Denies: neck pain or back pain Skin/Breast: Reports: rash Neuro: Denies: headache(s) Psych: Denies: depression Larry/Lymph: Denies: easy bruising All/Imm: Reports: urticaria PFSH ED PFSH: Medical History (Updated 07/14/21 @ 03:57 by Araceli Toney MD) Anxiety C. difficile colitis GERD (gastroesophageal reflux disease) Surgical History H/O esophagogastroduodenoscopy (05/15/21) History of left knee surgery History of tonsillectomy and adenoidectomy Status post colonoscopy (05/15/21) Female Reproductive History: Date of last menstrual period: 05/08/21 Physical Exam Const: COMMON NORMALS: no acute distress, patient oriented x3 and healthy appearing HENMT: COMMON NORMALS: normocephalic and atraumatic HEAD & SCALP: normocephalic and atraumatic OTHER: No throat or lip swelling Eye: COMMON NORMALS: Equal, round and reactive pupils present and EOMs intact bilaterally PUPIL: Yes Equal, round and reactive pupils present Neck/C-Spine: COMMON NORMALS: full ROM and supple Chest: COMMONS NORMALS: normal inspection of the chest and normal palpation of entire chest wall Resp: COMMON NORMALS: normal respiratory effort, No retractions, No use of accessory muscles and clear to auscultation bilaterally AUSCULTATION: clear to auscultation bilaterally Cardio: COMMON NORMALS: regular rate, regular rhythm and No murmurs present (Cardio) RATE: regular rate RHYTHM: regular rhythm GI: COMMON NORMALS: Normal to inspection, nondistended, normoactive bowel sounds present, Soft to palpation, non-tender and no masses PALPATION: Yes Soft to palpation Extremity: COMMON NORMALS: normal to inspection and full ROM Neuro: COMMON NORMALS: patient oriented x3, moves all extremities and no focal motor deficits Psych: COMMON NORMALS: mental status grossly normal, Normal thought process present and cooperative THOUGHT PROCESS: Normal thought process present Skin: COMMON NORMALS: no wounds NARRATIVE SKIN EXAM: Hives to her back and arms minimal to moderate nature Course Vital Signs: Vital signs: Vital Signs Temperature 97.9 F 07/14/21 02:21 Pulse Rate 93 07/14/21 02:21 Respiratory Rate 18 07/14/21 02:21 Blood Pressure 142/90 07/14/21 02:21 Pulse Oximetry 99 07/14/21 02:21 MDM - Allergic Reaction MDM Narrative: Medical decision making narrative: Patient presents here with allergic reaction with urticaria that is mild in nature will start on 5 days of prednisone she is improved here after IV meds no signs of anaphylaxis. She is to follow-up with PCP and return if worsening. She understands agrees to plan. Discharge Plan Discharge Patient Disposition: Home Clinical Impression: Urticaria, Allergic reaction Condition: Stable Prescriptions: New prednisone 50 mg tablet 50 mg PO DAILY Qty: 5 RF: 0 Discharge Orders: Discharge ED (Routine); Ordered 07/14/21 Ordered By: Araceli Toney Discharge Diet: Advance as tolerated Discharge Activity: Resume usual activity Patient Instructions: Urticaria (ED) Coding Level of Care Code ED Transitional Living Specialist for Chg Fwd Exam Comprehensive
[2021-07-14] MEDS: diphenhydrAMINE 50 mg/mL SDV 1mL IVP (03:40)
[2021-07-14] MEDS: famotidine 20 mg/2 mL INJ 40 MG IVP (03:40)
[2021-07-14 04:21] VITALS: PULSE 85; RESP 18; O2SAT 100
== END 2021-07-14 04:24 | disposition home or self-care (01) ==
PROVIDERS: Emergency Provider Emergency Medicine
DX: T78.40XA Allergy, unspecified, initial encounter (principal); L50.9 Urticaria, unspecified
CPT/HCPCS: 96374; 96375; 99283; J1200; J2930; J3490

== ENCOUNTER 2021-07-15 11:43 | Emergency (ER) | payer MEDICAID, SELFPAY ==
[2021-07-15 12:01] VITALS: BP 130/87; PULSE 90; RESP 18; TEMP 36.6; O2SAT 98; BMI 34.9
--- NOTE | 2021-07-15 12:32 | W.ED.ALLEREA ---
HPI - Allergic Reaction General: Chief complaint: Allergic Reaction Stated complaint: ALERGIC REACTION Time Seen by Provider: 07/15/21 12:18 History of Present Illness: HPI narrative: Patient states he is feeling weird since he has had the medication prednisone in her system the last day. Rash is gone hives are gone. Patient says she needs a note for work does not feel like she can work the next couple days. She said she has felt dizzy today. Patient does have an appointment with an head strength and conditioning coach that she has have scheduled a month ago and this appointment supposed to happen in July because she has been having allergy-like symptoms over the last couple years. MD complaint: other (Adverse medicine reaction most likely prednisone) Onset (ago): hour(s) Associated symptoms: Reports no associated symptoms and dizziness; Deny abdominal pain, nausea or vomiting Severity: mild Review of Systems Const: Denies: fever(s), chills or body aches Eyes: Denies: change in vision or blurry vision ENMT: Denies: throat pain or nasal congestion Card: Denies: chest pain or dyspnea on exertion Resp: Denies: dyspnea, productive cough or non-productive cough GI: Denies: abdominal pain, nausea or vomiting Musc: Denies: extremity pain Skin/Breast: Denies: rash Neuro: Reports: dizziness; Denies: headache(s) Psych: Denies: anxiety or depression Larry/Lymph: Denies: easy bruising PFSH ED PFSH: Medical History (Updated 07/15/21 @ 12:20 by BRUCE Dunn) Anxiety C. difficile colitis GERD (gastroesophageal reflux disease) Surgical History H/O esophagogastroduodenoscopy (05/15/21) History of left knee surgery History of tonsillectomy and adenoidectomy Status post colonoscopy (05/15/21) Female Reproductive History: Date of last menstrual period: 07/01/21 Physical Exam Const: COMMON NORMALS: no acute distress, average body habitus and patient oriented x3 HENMT: COMMON NORMALS: normocephalic HEAD & SCALP: normal to inspection and normocephalic FACE & SINUS: normal facial exam Eye: COMMON NORMALS: conjunctivae normal GENERAL EYE: appearance normal, both eyes and all related structures CONJUNCTIVA: Yes conjunctivae normal Neck/C-Spine: COMMON NORMALS: no JVD Chest: COMMONS NORMALS: normal inspection of the chest Resp: COMMON NORMALS: normal respiratory effort and clear to auscultation bilaterally AUSCULTATION: clear to auscultation bilaterally Cardio: COMMON NORMALS: no JVD, regular rate and regular rhythm RATE: regular rate RHYTHM: regular rhythm GI: COMMON NORMALS: Normal to inspection, nondistended, normoactive bowel sounds present Extremity: COMMON NORMALS: normal to inspection and full ROM Neuro: COMMON NORMALS: patient oriented x3 Course Vital Signs: Vital signs: Vital Signs Temperature 97.9 F 07/15/21 12:01 Pulse Rate 90 07/15/21 12:01 Respiratory Rate 18 07/15/21 12:01 Blood Pressure 130/87 07/15/21 12:01 Pulse Oximetry 98 07/15/21 12:01 Discharge Plan Discharge Patient Disposition: Home Clinical Impression: Adverse reaction to drug Qualifiers: Encounter type: initial encounter Qualified Code(s): T50.905A - Adverse effect of unspecified drugs, medicaments and biological substances, initial encounter Condition: Stable Prescriptions: New Zofran 4 mg tablet 4 mg PO Q8H 3 Days Qty: 9 RF: 0 No Action prednisone 50 mg tablet 50 mg PO DAILY Qty: 5 RF: 0 Discharge Orders: Discharge ED (Routine); Ordered 07/15/21 Ordered By: Rajinder De La Paz Discharge Diet: Usual diet Discharge Activity: Increase activity as tolerated Activity Restrictions/Additional Instructions: Follow-up with medical provider as directed. Take medications as prescribed. Return to the ER or your medical provider if condition worsens. Please read and understand discharge instructions. If any questions ask please. Stand Alone Forms: Work/School Release Coding Level of Care Code ED Filen[employer] P8 Developer for Yesica Manzo
[2021-07-15 12:40] VITALS: BP 116/73; PULSE 73; RESP 16; O2SAT 95
== END 2021-07-15 12:42 | disposition home or self-care (01) ==
LOC: ER 12:23
PROVIDERS: Emergency Provider Nurse Practitioner Family
DX: T88.7XXA Unspecified adverse effect of drug or medicament, initial encounter (principal); T50.905A Adverse effect of unspecified drugs, medicaments and biological substances, initial encounter
CPT/HCPCS: 99282

== ENCOUNTER 2021-07-23 02:06 | Emergency (ER) | payer MEDICAID, SELFPAY ==
[2021-07-23 02:18] VITALS: BP 135/90; PULSE 111; RESP 16; TEMP 36.7; O2SAT 97; BMI 34.9
--- NOTE | 2021-07-23 03:23 | ED_ITS ---
HPI - Ear Problem General: Chief complaint: Ear Stated complaint: Rt Ear Pain Time Seen by Provider: 07/23/21 02:30 Source: patient Mode of arrival: ambulatory Limitations: no limitations History of Present Illness: 20-year-old female states started having right ear pain this morning got much worse at night states pain is sharp nature rates an 8 out of 10 denies any radiation of her pain denies any difficulty hearing denies any bleeding denies any fevers. No history of ear infections in the past. Associated symptoms: Reports ear or mastoid pain; Denies fever(s), headache(s) or neck pain Review of Systems Const: Denies: fever(s), chills, body aches or change in appetite Eyes: Denies: blurry vision or eye discomfort ENMT: Reports: ear or mastoid pain; Denies: throat pain or dental pain Card: Denies: chest pain Resp: Denies: dyspnea GI: Denies: abdominal pain, nausea, vomiting or diarrhea : Denies: dysuria Musc: Denies: neck pain or back pain Skin/Breast: Denies: rash Neuro: Denies: headache(s) Psych: Denies: depression Larry/Lymph: Denies: easy bruising All/Imm: Denies: urticaria PFSH ED PFSH: Medical History (Updated 07/23/21 @ 03:25 by Araceli Toney MD) Anxiety C. difficile colitis GERD (gastroesophageal reflux disease) Surgical History H/O esophagogastroduodenoscopy (05/15/21) History of left knee surgery History of tonsillectomy and adenoidectomy Status post colonoscopy (05/15/21) Female Reproductive History: Date of last menstrual period: 07/01/21 Physical Exam Const: COMMON NORMALS: no acute distress, patient oriented x3 and healthy appearing HENMT: COMMON NORMALS: normocephalic and atraumatic HEAD & SCALP: normocephalic and atraumatic Eye: COMMON NORMALS: Equal, round and reactive pupils present and EOMs intact bilaterally PUPIL: Yes Equal, round and reactive pupils present OTHER: The right tympanic membrane with a bulla noted likely bullous myringitis Neck/C-Spine: COMMON NORMALS: full ROM and supple Chest: COMMONS NORMALS: normal inspection of the chest and normal palpation of entire chest wall Resp: COMMON NORMALS: normal respiratory effort, No retractions, No use of accessory muscles and clear to auscultation bilaterally AUSCULTATION: clear to auscultation bilaterally Cardio: COMMON NORMALS: regular rate, regular rhythm and No murmurs present (Cardio) RATE: regular rate RHYTHM: regular rhythm GI: COMMON NORMALS: Normal to inspection, nondistended, normoactive bowel sounds present, Soft to palpation, non-tender and no masses PALPATION: Yes Soft to palpation Extremity: COMMON NORMALS: normal to inspection and full ROM Neuro: COMMON NORMALS: patient oriented x3, moves all extremities and no focal motor deficits Psych: COMMON NORMALS: mental status grossly normal, Normal thought process present and cooperative THOUGHT PROCESS: Normal thought process present Skin: COMMON NORMALS: no rashes or lesions noted and no wounds GENERAL SKIN EXAM: no rashes or lesions noted Course Vital Signs: Vital signs: Vital Signs Temperature 98.1 F 07/23/21 02:18 Pulse Rate 111 H 07/23/21 02:18 Respiratory Rate 16 07/23/21 02:18 Blood Pressure 135/90 07/23/21 02:18 Pulse Oximetry 97 07/23/21 02:18 MDM - Ear Medical Decision Making Patient presents with right ear pain with likely bullous myringitis will start on azithromycin she is take Motrin for pain she is stable for discharge return if worsening. Discharge Plan Discharge Patient Disposition: Home Clinical Impression: Otitis media Condition: Stable Prescriptions: New azithromycin 250 mg tablet See Rx Instructions .ROUTE .COMPLEX Qty: 6 0RF Rx Instructions: take 500 mg today (day 1), then 250 mg for 4 days (days 2-5) No Action prednisone 50 mg tablet 50 mg PO DAILY Qty: 5 0RF Discharge Orders: Discharge ED (Routine); Ordered 07/23/21 Ordered By: Araceli Toney Discharge Diet: Advance as tolerated Discharge Activity: Resume usual activity Patient Instructions: Otitis Media - Adult Coding Level of Care Code ED Welding Machine Operator Helper Arc for Chg Fwd Exam Comprehensive
[2021-07-23 03:26] VITALS: BP 140/75; PULSE 89; RESP 17; O2SAT 99
[2021-07-23] MEDS: naproxen 500 mg Tablet PO (03:31)
== END 2021-07-23 03:35 | disposition home or self-care (01) ==
PROVIDERS: Emergency Provider Emergency Medicine
DX: H66.91 Otitis media, unspecified, right ear (principal)
CPT/HCPCS: 99283

== ENCOUNTER → 2021-08-05 11:28 | Outpatient (BNVA) | payer MEDICAID, SELFPAY | PROVIDERS: Visit Provider Nurse Practitioner Women's Health | DX: N92.6 Irregular menstruation, unspecified (principal); Z01.419 Encounter for gynecological examination (general) (routine) without abnormal findings; Z11.3 Encounter for screening for infections with a predominantly sexual mode of transmission | CPT/HCPCS: 84146; 84439; 84443; 84702; 86592; 86803; 87340; 87491; 87591; 87661; 87806; 88175 ==

== ENCOUNTER → 2021-08-20 09:08 | Outpatient (BNVA) | payer MEDICAID, SELFPAY | PROVIDERS: Visit Provider Nurse Practitioner Women's Health | DX: E28.2 Polycystic ovarian syndrome (principal) | CPT/HCPCS: 80053; 80061; 83036 ==

== ENCOUNTER 2021-10-06 21:09 | Emergency (ER) | payer MEDICAID, SELFPAY ==
[2021-10-06 21:15] VITALS: BP 143/87; PULSE 88; RESP 20; TEMP 36.3; O2SAT 100; BMI 34.1
[2021-10-06] MEDS: CELEcoxib 200 mg Capsule 400 MG PO (21:30)
--- NOTE | 2021-10-06 21:31 | ED_ITS ---
HPI - Head Injury General: Chief complaint: Head Injury Stated complaint: Injury-Head Time Seen by Provider: 10/06/21 21:22 History of Present Illness: Patient states she slipped in mud and chasing her dog and she fell backwards striking her back of her head in the mud. States she went into the house to shower cleaned up. Started a headache while later. Tylenol does not help the headache. Patient denies any loss of consciousness. Denies any injury to her neck. Associated symptoms: Deny nausea or vomiting Review of Systems Narrative: Fall on Wednesday at 730 this evening striking back of the head. Const: Denies: fever(s), chills or body aches Eyes: Denies: eye discomfort ENMT: Denies: throat pain Card: Denies: chest pain Resp: Denies: dyspnea GI: Denies: abdominal pain, nausea or vomiting Skin/Breast: Reports: other (Tenderness back of scalp.); Denies: rash Neuro: Reports: headache(s) Psych: Denies: depression or suicidal ideation PFSH ED PFSH: Medical History Anxiety C. difficile colitis (~04/2021) GERD (gastroesophageal reflux disease) No pertinent past medical history neghx: htn,dm,thyroid,dvt/pe PCP: none Surgical History H/O esophagogastroduodenoscopy (05/15/21) History of left knee surgery History of tonsillectomy and adenoidectomy Status post colonoscopy (05/15/21) Family History Mother Diabetes Grandmother Diabetes Maternal Heart disease Maternal Hypercholesteremia Maternal Hypertension Maternal Thyroid disease Maternal Grandfather Diabetes Maternal Thyroid disease Maternal Denies family history of Colon cancer Ovarian cancer Hyperlipidemia Breast cancer Uterine cancer Stroke Female Reproductive History: Date of last menstrual period: 07/01/21 Physical Exam Const: COMMON NORMALS: no acute distress, patient oriented x3 and alert HENMT: COMMON NORMALS: normocephalic, external ears normal, EAC's normal and TM's normal bilaterally HEAD & SCALP: normocephalic EXTERNAL EAR: Yes external ears normal EXTERNAL AUDITORY CANAL: EAC's normal TYMPANIC MEMBRANE: TM's normal bilaterally Eye: COMMON NORMALS: Equal, round and reactive pupils present and EOMs intact bilaterally PUPIL: Yes Equal, round and reactive pupils present Neck/C-Spine: COMMON NORMALS: no JVD GENERAL: Yes normal visual inspection CERVICAL SPINE: Yes cervical ROM normal, No pain with cervical ROM, Yes Cervical spine tenderness and Yes Paracervical muscle tenderness (Mild, mild at where it attaches attaches to the occiput.) bilateral Resp: COMMON NORMALS: normal respiratory effort and No use of accessory muscles Cardio: COMMON NORMALS: no JVD GI: INSPECTION: Yes normal to inspection Extremity: COMMON NORMALS: normal to inspection and full ROM Neuro: COMMON NORMALS: patient oriented x3 SENSORIUM/ORIENTATION: Yes alert SPEECH: speech normal Psych: COMMON NORMALS: mental status grossly normal Skin: COMMON NORMALS: no rashes or lesions noted GENERAL SKIN EXAM: no rashes or lesions noted OTHER: Bruising noted to the back of scalp and no swelling. Course Vital Signs: Vital signs: Vital Signs Temperature 97.4 F L 10/06/21 21:15 Pulse Rate 88 10/06/21 21:15 Respiratory Rate 20 H 10/06/21 21:15 Blood Pressure 143/87 10/06/21 21:15 Pulse Oximetry 100 10/06/21 21:15 [facility] - Head Injury Medcial Decision Making Scalp contusion. Discharge Plan Discharge Patient Disposition: Home Clinical Impression: Contusion Qualifiers: Encounter type: initial encounter Contusion area: head Contusion of head detail: scalp Qualified Code(s): S00.03XA - Contusion of scalp, initial encounter Condition: Stable Prescriptions: New Celebrex 100 mg capsule 100 mg PO BID Qty: 20 0RF No Action Zyrtec 10 mg capsule 10 mg PO DAILY PRN0RF famotidine [Pepcid] 20 mg tablet 20 mg PO DAILY 0RF etonogestrel-ethinyl estradiol [NuvaRing] 0.12-0.015 mg/24 hr ring 1 vag ring vaginal .monthly Qty: 3 0RF Discharge Orders: Discharge ED (Routine); Ordered 10/06/21 Ordered By: Rajinder De La Paz Discharge Diet: Usual diet Discharge Activity: Increase activity as tolerated Patient Instructions: Head Injury (ED) Activity Restrictions/Additional Instructions: Follow-up with medical provider as directed. Take medications as prescribed. Return to the ER or your medical provider if condition worsens. Please read and understand discharge instructions. If any questions ask please. Off work tomorrow. Stand Alone Forms: Work/School Release Coding Level of Care Code ED Library Services Coordinator for Yesica Manzo
[2021-10-06 21:34] VITALS: RESP 14
== END 2021-10-06 21:35 | disposition home or self-care (01) ==
PROVIDERS: Emergency Provider Nurse Practitioner Family
DX: S00.03XA Contusion of scalp, initial encounter (principal); W01.0XXA Fall on same level from slipping, tripping and stumbling without subsequent striking against object, initial encounter
CPT/HCPCS: 99282

== ENCOUNTER → 2021-10-15 12:32 | Outpatient (BNVA) | payer MEDICAID, SELFPAY | PROVIDERS: Referring Provider Nurse Practitioner Family; Visit Provider Specialist | DX: G89.29 Other chronic pain (principal); Z98.890 Other specified postprocedural states; M25.562 Pain in left knee | CPT/HCPCS: 73560; 73565; 99214 ==

== ENCOUNTER 2021-11-21 11:46 | Outpatient (CLI) | payer MEDICAID, SELFPAY ==
--- NOTE | 2021-11-21 11:45 | MR_ITS ---
WS: [id number] MRI LEFT KNEE HISTORY: pain COMPARISON: None available. Anterior cruciate ligament: Intact. Posterior cruciate ligament: Intact. Medial collateral ligament: Intact. Posterior lateral corner structures: Intact. Medial menisci: Intact. Normal signal, size and shape. Lateral meniscus: Intact. Normal signal, size and shape. Extensor mechanism: Distal quadriceps tendon and patellar tendons are intact. Fluid and soft tissue: Very small suprapatellar joint effusion is within normal limits. No Flanagan's [facility]. Osseous and articular structures: Patellofemoral compartment: Very minimal variable signal in the lateral patellar facet. The overlying cartilage is mildly thinned along the extra articular surface of the patellar facet. Medial compartment: There is a wedge-shaped defect in the medial femoral metaphysis. Variable signal on the T1 and T2 sequences. This does appear to be a wedge-shaped defect. Patient describes prior de león rgery LEFT knee. There is also small lucency noted in this location on the radiographs. Could be an o steotomy site or prior cortical tract from surgery. Additional thickening of the medial patellar reti naculum may be from prior surgery or chronic injury. Lateral compartment: Normal. MR/MR knee LT wo con* [id number] IMPRESSION: 1. No meniscal tear or ACL tear. 2. Wedge-shaped variable signal in the medial femoral metaphysis. Due to its a ppearance this may be from prior surgical tract or osteotomy site. Please corre late with prior history. Patient did describe a prior surgery involving the LEF T knee. 3. Very minimal loss of cartilage over the nonarticular surface medial patella r eminence. 4. Mild thickening of the medial patellar retinaculum. The distal retinaculum is closely associated with the defect in the femoral metaphysis. This is probab ly from prior surgery.
== END 2021-11-21 11:47 | disposition home or self-care (01) ==
LOC: RAD 11:47
PROVIDERS: Visit Provider Specialist
DX: M25.569 Pain in unspecified knee (principal)
CPT/HCPCS: 73721

== ENCOUNTER 2022-01-19 10:54 | Outpatient (CLI) | payer MEDICAID, SELFPAY ==
[2022-01-19 11:41] LABS: Basophils # 0.1 10^3/uL (0.0-0.1); Basophils % 0.7 %; Eosinophils # 0.3 10^3/uL (0.0-0.8); Hematocrit 34.6 % (37.0-47.0); Hemoglobin 10.9 g/dL (11.5-15.3); Lymphocytes # 3.5 10^3/uL (0.8-4.8); Lymphocytes % 33.2 %; Mean Corpuscular HGB Conc 31.5 g/dL (30.0-36.0); Mean Corpuscular Hemoglobin 25.4 pg (28.0-34.0); Mean Corpuscular Volume 80.7 fl (81-99); Mean Platelet Volume 8.9 fL (7.4-10.4); Monocytes # 0.5 10^3/uL (0.2-0.9); Monocytes % 4.7 %; Neutrophils # 6.05 10^3/uL (1.8-7.7); Neutrophils % 58.1 %; Nucleated Red Blood Cells % 0 %; Platelet Count 386 10^3/cmm (130-400); Red Blood Count 4.29 10^6/uL (4.1-5.3); Red Cell Distribution Width 13.7 % (12.1-15.1); White Blood Count 10.4 10^3/uL (4.0-10.0)
[2022-01-19 12:12] LABS: Alanine Aminotransferase 12 U/L (0-33); Albumin Level 4.1 g/dL (3.5-5.2); Alkaline Phosphatase 78 IU/L (35-105); Anion Gap 13.9 (5-19); Aspartate Amino Transferase 13 U/L (0-32); Blood Urea Nitrogen 11 mg/dL (6-20); Calcium 9.1 mg/dL (8.5-10.5); Carbon Dioxide 23 mmol/L (22-29); Chloride 104 mmol/L (98-107); Chol HDL Ratio 3.59 mg/dL (0.0-4.40); Cholesterol 201 mg/dL (0-200); Globulin 2.6 g/dL (1.3-4.6); Glomerular Filtration Rate 126.2 mL/min (90-130); Glucose 98 mg/dL (65-115); HDL Cholesterol 56 mg/dL (60-100); LDL Cholesterol Calculated 112 mg/dL (50-129); Osmolality Calculated 283 mOsm/kg (285-295); Potassium 3.9 mmol/L (3.5-5.1); Sodium 137 mmol/L (136-145); Thyroid Stimulating Hormone 6.02 uIU/mL (0.27-4.20); Total Bilirubin 0.2 mg/dL (0.15-1.2); Total Protein 6.7 g/dL (6.6-8.7); Triglycerides 163 mg/dL (0-150)
[2022-01-19 15:23] LABS: Estmated Average Glucose 88; Hemoglobin A1C 4.7 % (4.0-6.0)
== END 2022-01-19 10:55 | disposition home or self-care (01) ==
PROVIDERS: Visit Provider Family Medicine
DX: E28.2 Polycystic ovarian syndrome (principal); K21.9 Gastro-esophageal reflux disease without esophagitis; L25.9 Unspecified contact dermatitis, unspecified cause; Z76.89 Persons encountering health services in other specified circumstances
CPT/HCPCS: 80053; 80061; 83036; 84443; 85025

== ENCOUNTER → 2022-01-29 18:02 | Outpatient (BNVA) | payer MEDICAID, SELFPAY | PROVIDERS: PCP Family Medicine; Visit Provider Registered Nurse Neonatal Intensive Care | DX: J02.9 Acute pharyngitis, unspecified (principal) | CPT/HCPCS: 87426; 87880 ==

== ENCOUNTER → 2022-02-02 11:43 | Outpatient (BNVA) | payer MEDICAID, SELFPAY | PROVIDERS: PCP Family Medicine; Visit Provider Family Medicine | DX: R79.89 Other specified abnormal findings of blood chemistry (principal) | CPT/HCPCS: 84439; 84443; 84481 ==

== ENCOUNTER → 2022-03-12 17:52 | Outpatient (BNVA) | payer MEDICAID, SELFPAY | PROVIDERS: PCP Family Medicine; Visit Provider Registered Nurse Neonatal Intensive Care | DX: J02.9 Acute pharyngitis, unspecified (principal); H66.001 Acute suppurative otitis media without spontaneous rupture of ear drum, right ear | CPT/HCPCS: 87880 ==

== ENCOUNTER → 2022-03-25 15:50 | Outpatient (BNVA) | payer MEDICAID, SELFPAY | PROVIDERS: PCP Family Medicine; Visit Provider Specialist | DX: M25.562 Pain in left knee (principal) | CPT/HCPCS: 99213 ==

== ENCOUNTER → 2022-04-13 11:52 | Outpatient (BNVA) | payer MEDICAID, SELFPAY | PROVIDERS: PCP Family Medicine; Visit Provider Registered Nurse Neonatal Intensive Care | DX: S99.911A Unspecified injury of right ankle, initial encounter (principal); W01.0XXA Fall on same level from slipping, tripping and stumbling without subsequent striking against object, initial encounter | CPT/HCPCS: 73610 ==

== ENCOUNTER → 2022-06-09 11:47 | Outpatient (BNVA) | payer MEDICAID, SELFPAY | PROVIDERS: PCP Family Medicine; Visit Provider Registered Nurse Neonatal Intensive Care | DX: R50.9 Fever, unspecified (principal); J01.90 Acute sinusitis, unspecified; B96.89 Other specified bacterial agents as the cause of diseases classified elsewhere | CPT/HCPCS: 87400 ==

== ENCOUNTER 2022-06-30 11:25 | Emergency (ER) | payer MEDICAID, SELFPAY ==
[2022-06-30 11:41] VITALS: BP 128/78; PULSE 84; RESP 17; TEMP 36.6; O2SAT 100; BMI 36.2
--- NOTE | 2022-06-30 11:45 | ECG_ITS ---
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 Measurements Intervals [place] Rate: 80 P: 65 IN: 167 QRS: 16 QRSD: 90 T: 20 QT: 359 QTc: 416 Interpretive Statements SINUS RHYTHM LOW QRS VOLTAGE IN PRECORDIAL LEADS [QRS DEFLECTION < 1.0 mV IN CHEST LEADS] INTERPRETATION BASED ON A DEFAULT AGE OF 40 YEARS Compared to ECG 02/05/2021 19:14:58 No significant changes Electronically Signed On 06-30-2022 20:27:20 SEWING MACHINE OPERATOR PAPER BAGS by Leo Rivero M.D. [id number] f
[2022-06-30 12:21] VITALS: BP 137/87; PULSE 79; RESP 13; O2SAT 100
--- NOTE | 2022-06-30 12:37 | XR_ITS ---
WS: [id number] Portable AP upright chest, 06/30/2022 Clinical Data: palpitations, dizzy, SOB Comparison: Portable chest, 05/04/2021. Findings: No nodules, masses or effusions are seen. The heart is normal. The pulmonary vascularity is not increased. No pneumonia or pneumothorax is seen. Monitor leads are on the chest wall. XR/XR chest 1V portable [id number] Impression: Negative chest.
--- NOTE | 2022-06-30 12:39 | W.ED.ARRPALP ---
HPI - Arrhythmia/Palpitations General: Chief Complaint: Arrhythmia/Palpitations Stated Complaint: High HR, dizzy Time Seen by Provider: 06/30/22 12:27 Source: patient Mode of arrival: ambulatory Limitations: no limitations History of Present Illness: Patient is a nice 21-year-old female presents to ED today with a complaint of episodes of a racing heart rate/palpitations. Patient states she has had intermittent symptoms for several months now. She states she cannot find any factors that seem to bring on her symptoms. She states symptoms will last anywhere from few minutes to 40 minutes. She states she has checked her pulse during these periods and heart rate can be well into the 140s to 180s. She states during these episodes she feels short of breath, lightheaded, and dizzy as well as anxious. Patient has never had a syncopal episode although she has felt presyncopal previously. They do not seem to be brought on by exercise. Patient denies drug or alcohol use. No history of hyperthyroidism. MD complaint: rapid heart beat, heart racing and palpitations Onset (ago): week(s) Duration: intermittent Associated symptoms: Reports pre-syncope; Deny nausea, syncope or vomiting Review of Systems Const: Denies: fever(s), chills, body aches, fatigue or malaise Card: Reports: palpitations, lightheadedness and pre-syncope; Denies: chest pain, irregular heart rhythm, edema, swelling of feet/ankles, syncope, dyspnea on exertion, orthopnea, leg pain with exertion or acrocyanosis Resp: Denies: dyspnea GI: Denies: abdominal pain, nausea or vomiting Skin/Breast: Denies: rash Neuro: Denies: headache(s), numbness in extremities, weakness in extremities or sensory changes [facility] ED PFSH: Medical History Anxiety C. difficile colitis (~04/2021) GERD (gastroesophageal reflux disease) No pertinent past medical history neghx: htn,dm,thyroid,dvt/pe PCP: none Surgical History H/O esophagogastroduodenoscopy (05/15/21) History of tonsillectomy and adenoidectomy Hx of anterior cruciate ligament tear reconstruction Status post colonoscopy (05/15/21) Family History Mother Diabetes Grandmother Diabetes Maternal Heart disease Maternal Hypercholesteremia Maternal Hypertension Maternal Thyroid disease Maternal Grandfather Diabetes Maternal Thyroid disease Maternal Denies family history of Colon cancer Ovarian cancer Hyperlipidemia Breast cancer Uterine cancer Stroke Social History Smoking and tobacco status: never smoked Female Reproductive History: Date of last menstrual period: 07/01/21 Spontaneous abortions: No Physical Exam Const: COMMON NORMALS: no acute distress, patient oriented x3, no limitations, healthy appearing, alert and well nourished GENERAL APPEARANCE: cooperative ORIENTATION/CONSCIOUSNESS: Yes awake, Yes oriented to person, Yes oriented to place and Yes oriented to time Resp: COMMON NORMALS: normal respiratory effort and clear to auscultation bilaterally AUSCULTATION: clear to auscultation bilaterally Cardio: COMMON NORMALS: regular rate and regular rhythm RATE: regular rate RHYTHM: regular rhythm Extremity: GENERAL: Yes normal exam except as noted Neuro: COMMON NORMALS: patient oriented x3 SENSORIUM/ORIENTATION: Yes alert, Yes oriented to person, Yes oriented to place and Yes oriented to time Course Vital Signs: Vital signs: Vital Signs Temperature 98 F 06/30/22 11:41 Pulse Rate 73 06/30/22 14:08 Respiratory Rate 13 06/30/22 14:08 Blood Pressure 114/73 06/30/22 14:08 Pulse Oximetry 100 06/30/22 14:08 Oxygen Delivery Me thod 06/30/22 14:08 MDM - Arrhythmia/Palpitations Medical Decision Making Patient has not had any episodes while here in the ED. EKG showing sinus rhythm at 80 bpm. Blood work is unremarkable at this time. Remainder of vitals are stable. Patient most likely would benefit from a 48-hour Holter monitor. We discussed putting her on a suppressive medication such as propranolol however she states she will have approximately 2-3 episodes a week and I would like to capture one of these episodes on her monitoring. This may be a possibility down the road. She states she has a follow-up appointment with her PCP Dr. Mcnulty on . She can discuss further evaluation with him. I have placed Holter monitor order with case management. We will also get her set up with cardiology follow-up. Return to ED precautions given. Lab Data 06/30/22 13:28 06/30/22 13:28 Radiology Impressions Chest X-Ray 06/30/22 12:37 Impression: Negative chest. Laboratory Results WBC 8.7 10^3/uL (4.0-10.0) 06/30/22 13:28 RBC 4.50 10^6/uL (4.1-5.3) 06/30/22 13:28 Hgb 11.8 g/dL (11.5-15.3) 06/30/22 13:28 Hct 38.4 % (37.0-47.0) 06/30/22 13:28 MCV 85.3 fl (81-99) 06/30/22 13:28 MCH 26.2 pg (28.0-34.0) L 06/30/22 13:28 MCHC 30.7 g/dL (30.0-36.0) 06/30/22 13:28 RDW 14.6 % (12.1-15.1) 06/30/22 13:28 Plt Count 374 10^3/cmm (130-400) 06/30/22 13:28 MPV 8.8 fL (7.4-10.4) 06/30/22 13:28 Neut % (Auto) 62.5 % 06/30/22 13:28 Lymph % (Auto) 31.3 % 06/30/22 13:28 [place] % (Auto) 4.7 % 06/30/22 13:28 Eos % (Auto) 1.1 % 06/30/22 13:28 Baso % (Auto) 0.2 % 06/30/22 13:28 Neut # (Auto) 5.44 10^3/uL (1.8-7.7) 06/30/22 13:28 Lymph # (Auto) 2.7 10^3/uL (0.8-4.8) 06/30/22 13:28 [place] # (Auto) 0.4 10^3/uL (0.2-0.9) 06/30/22 13:28 Eos # (Auto) 0.1 10^3/uL (0.0-0.8) 06/30/22 13:28 Baso # (Auto) 0.0 10^3/uL (0.0-0.1) 06/30/22 13:28 Nucleated RBC % (auto) 0 % 06/30/22 13:28 Nucleated RBCs # 0.0 /100WBC 06/30/22 13:28 Sodium 138 mmol/L (136-145) 06/30/22 13:28 Potassium 3.5 mmol/L (3.5-5.1) 06/30/22 13:28 Chloride 103 mmol/L (98-107) 06/30/22 13:28 Carbon Dioxide 24 mmol/L (22-29) 06/30/22 13:28 Anion Gap 14.5 (5-19) 06/30/22 13:28 BUN 9 mg/dL (6-20) 06/30/22 13:28 Creatinine 0.5 mg/dL (0.5-0.9) 06/30/22 13:28 GFR Calculation 155.7 mL/min (90-130) H 06/30/22 13:28 Glucose 82 mg/dL (65-115) 06/30/22 13:28 Calculated Osmolality 284 mOsm/kg (285-295) L 06/30/22 13:28 Calcium 9.1 mg/dL (8.5-10.5) 06/30/22 13:28 Total Bilirubin 0.3 mg/dL (0.15-1.2) 06/30/22 13:28 AST 15 U/L (0-32) 06/30/22 13:28 ALT 14 U/L (0-33) 06/30/22 13:28 Alkaline Phosphatase 87 U/L (35-105) 06/30/22 13:28 Total Protein 7.4 g/dL (6.6-8.7) 06/30/22 13:28 Albumin 4.5 g/dL (3.5-5.2) 06/30/22 13:28 Globulin 2.9 g/dL (1.3-4.6) 06/30/22 13:28 TSH 2.85 uIU/mL (0.27-4.20) 06/30/22 13:28 HCG, Qual Negative (Negative) 06/30/22 13:28 Discharge Plan Discharge Patient Disposition: Home Clinical Impression: Palpitations Condition: Stable Prescriptions: No Action Zyrtec 10 mg capsule 10 mg PO DAILY PRN etonogestrel-ethinyl estradiol [NuvaRing] 0.12-0.015 mg/24 hr ring 1 vag ring vaginal .monthly Qty: 3 3RF buspirone 5 mg tablet 5 mg PO TID Qty: 60 2RF amoxicillin-pot clavulanate 875-125 mg tablet 1 tab PO BID 7 Days Qty: 14 0RF fluconazole [Diflucan] 150 mg tablet 150 mg PO ONCE Qty: 1 0RF Discharge Orders: Discharge ED (Routine); Ordered 06/30/22 Ordered By: Kandace Gonzales Referrals: Nikolai Logan DO [Primary Care Provider] - Activity Restrictions/Additional Instructions: As we discussed case management should contact you shortly to help set you up with a 48-hour Holter monitor for further evaluation. Please follow-up with your primary care provider Dr. Mcnulty on as scheduled. Need to return to the emergency department for worsening episodes of racing heart rate, shortness of breath, difficulty breathing, passing out episodes, or any other concerns you may have. I hope you begin to feel better soon. Coding Level of Care Code ED Special Police for Yesica Manzo
[2022-06-30 13:00] VITALS: BP 130/77; PULSE 81; RESP 14; O2SAT 99
[2022-06-30 13:54] LABS: Basophils % 0.2 %; Eosinophils # 0.1 10^3/uL (0.0-0.8); Eosinophils % 1.1 %; Hematocrit 38.4 % (37.0-47.0); Hemoglobin 11.8 g/dL (11.5-15.3); Lymphocytes # 2.7 10^3/uL (0.8-4.8); Lymphocytes % 31.3 %; Mean Corpuscular HGB Conc 30.7 g/dL (30.0-36.0); Mean Corpuscular Hemoglobin 26.2 pg (28.0-34.0); Mean Corpuscular Volume 85.3 fl (81-99); Mean Platelet Volume 8.8 fL (7.4-10.4); Monocytes # 0.4 10^3/uL (0.2-0.9); Monocytes % 4.7 %; Neutrophils # 5.44 10^3/uL (1.8-7.7); Neutrophils % 62.5 %; Nucleated Red Blood Cells % 0 %; Platelet Count 374 10^3/cmm (130-400); Red Cell Distribution Width 14.6 % (12.1-15.1); White Blood Count 8.7 10^3/uL (4.0-10.0)
[2022-06-30 14:08] VITALS: BP 114/73; PULSE 73; RESP 13; O2SAT 100
[2022-06-30 14:12] LABS: HCG, Serum Qual Negative (Negative)
[2022-06-30 14:23] LABS: Alanine Aminotransferase 14 U/L (0-33); Albumin Level 4.5 g/dL (3.5-5.2); Alkaline Phosphatase 87 U/L (35-105); Anion Gap 14.5 (5-19); Aspartate Amino Transferase 15 U/L (0-32); Blood Urea Nitrogen 9 mg/dL (6-20); Calcium 9.1 mg/dL (8.5-10.5); Carbon Dioxide 24 mmol/L (22-29); Chloride 103 mmol/L (98-107); Globulin 2.9 g/dL (1.3-4.6); Glomerular Filtration Rate 155.7 mL/min (90-130); Glucose 82 mg/dL (65-115); Osmolality Calculated 284 mOsm/kg (285-295); Potassium 3.5 mmol/L (3.5-5.1); Sodium 138 mmol/L (136-145); Thyroid Stimulating Hormone 2.85 uIU/mL (0.27-4.20); Total Bilirubin 0.3 mg/dL (0.15-1.2); Total Protein 7.4 g/dL (6.6-8.7)
--- NOTE | 2022-06-30 14:59 | DCPLANNER ---
Addendum entered by Vania Guzman 08/28/22 07:29: Patient had a follow up appointment at [facility] for a follow up appointment and a 48 hour halter placement - patient did attend both appointments. Addendum entered by Vania Guzman 07/03/22 11:12: Patient had a follow up appointment scheduled with [facility] - patient did attend appointment Addendum entered by Vania Guzman 07/01/22 15:33: Patient has a follow up appointment scheduled for , July 02, 2022 at 2:00 at [facility]. Clinic will call patient with appointment information. Patient has a follow up appointment scheduled for Friday, August 12, 2022 at 1:[address] Oliveira at [facility]. Clinic will call patient with appointment information. Original Note: retail merchandising manager had message to schedule a follow up appointment for patient with cardiology. retail merchandising manager sent patients information to the front office staff at [facility]. Patients information will be printed and reviewed. Clinic will call patient with appointment information. retail merchandising manager had message to schedule an outpatient 48 hour halter monitor for patient. retail merchandising manager faxed signed order to [facility], clinic will call patient with appointment information.
[2022-06-30 15:12] VITALS: BP 127/73; PULSE 88; RESP 14; O2SAT 99
== END 2022-06-30 14:40 | disposition home or self-care (01) ==
PROVIDERS: Emergency Provider Physician Assistant; PCP Family Medicine
DX: R00.2 Palpitations (principal)
CPT/HCPCS: 36415; 71045; 80053; 84443; 84703; 85025; 93005; 99285

== ENCOUNTER → 2022-07-02 13:42 | Outpatient (BNVA) | payer MEDICAID, SELFPAY | PROVIDERS: PCP Family Medicine; Visit Provider Internal Medicine | DX: R00.2 Palpitations (principal); R00.0 Tachycardia, unspecified | CPT/HCPCS: 93225 ==

== ENCOUNTER 2022-07-22 20:46 | Emergency (ER) | payer MEDICAID, SELFPAY ==
[2022-07-22 20:51] VITALS: BP 142/88; PULSE 71; RESP 14; TEMP 36.6; O2SAT 100
--- NOTE | 2022-07-22 21:09 | CTR_ITS ---
PROCEDURE INFORMATION: Exam: CT Cervical Spine Without Contrast Exam date and time: 07/22/2022 9:21 PM Age: 22 years old Clinical indication: Injury or trauma; Fall; Blunt trauma; Patient HX: Fell backwards into snow and landed on rock. C/O neck pain. TECHNIQUE: Imaging protocol: Computed tomography of the cervical spine without contrast. Radiation optimization: All CT scans at this facility use at least one of these dose optimization techniques: automated exposure control; mA and/or kV adjustment per patient size (includes targeted exams where dose is matched to clinical indication); or iterative reconstruction. Other protocol: This patient has received 0 known CTs and 0 known cardiac nuclear medicine studies in the 12 months prior to the current study. COMPARISON: CR XR cervical spine 3V* [id number] 12/24/2018 6:32 PM RADIATION DOSE METRICS: Total DLP (mGy-cm): 385.77 FINDINGS: Bones/joints: No acute fracture. Normal alignment. C2-C3: No significant disc protrusion. No severe spinal canal stenosis. No significant neural foraminal narrowing. C3-C4: No significant disc protrusion. No severe spinal canal stenosis. No significant neural foraminal narrowing. C4-C5: No significant disc protrusion. No severe spinal canal stenosis. No significant neural foraminal narrowing. C5-C6: No significant disc protrusion. No severe spinal canal stenosis. No significant neural foraminal narrowing. C6-C7: No significant disc protrusion. No severe spinal canal stenosis. No significant neural foraminal narrowing. C7-T1: No significant disc protrusion. No severe spinal canal stenosis. No significant neural foraminal narrowing. Lungs: Lung apices are normal. Soft tissues: Unremarkable. CT/CT cervical spin wo con* [id number] IMPRESSION: No acute findings.
--- NOTE | 2022-07-22 21:09 | XRR_ITS ---
PROCEDURE INFORMATION: Exam: XR Right Shoulder Exam date and time: 07/22/2022 9:23 PM Age: 22 years old Clinical indication: Pain; Shoulder; Right; Additional info: Fell today, posterior shoulder pain TECHNIQUE: Imaging protocol: Radiologic exam of the Right shoulder. Views: 2 or more views. COMPARISON: CT cervical spin wo con* [id number] 07/22/2022 9:21 PM FINDINGS: Bones/joints: Normal. Soft tissues: Normal. XR/XR shoulder RT min 2V* [id number] IMPRESSION: No acute findings.
--- NOTE | 2022-07-22 21:09 | PC.NURSE ---
Transient pain to various parts of body. Pain ceases at previous reported sites for pain.
--- NOTE | 2022-07-22 21:12 | XRR_ITS ---
PROCEDURE INFORMATION: Exam: XR Thoracic Spine Exam date and time: 07/22/2022 9:23 PM Age: 22 years old Clinical indication: Pain in thoracic spine; Additional info: Slipped today and landed on a rock TECHNIQUE: Imaging protocol: Radiologic exam of the thoracic spine. Views: 3 views. COMPARISON: CT cervical spin wo con* [id number] 07/22/2022 9:21 PM FINDINGS: Bones/joints: Normal. No acute fracture. Normal alignment. Soft tissues: Unremarkable. XR/XR thoracic spine 3V* [id number] IMPRESSION: No acute findings.
--- NOTE | 2022-07-22 21:12 | W.ED.FALL ---
HPI - Fall General: Chief Complaint: Fall Stated Complaint: FALL Time Seen by Provider: 07/22/22 20:50 Source: patient and EMS Mode of arrival: EMS Limitations: no limitations History of Present Illness: 23-year-old female states she tripped and fell on ice 1 hour ago. She states she fell backwards and landed on her right shoulder and fell on her back she states that she has upper back pain along with neck and shoulder pain she rates her pain a 6 out of 10 she denies hitting her head denies any loss of consciousness she is ambulatory with no difficulties. Associated symptoms-after fall: Reports neck pain; Denies abdominal pain, chest pain or headache(s) Review of Systems Const: Denies: fever(s), chills, body aches or change in appetite Eyes: Denies: blurry vision or eye discomfort ENMT: Denies: throat pain or dental pain Card: Denies: chest pain Resp: Denies: dyspnea GI: Denies: abdominal pain, nausea, vomiting or diarrhea : Denies: dysuria Musc: Reports: neck pain and back pain Skin/Breast: Denies: rash Neuro: Denies: headache(s) Psych: Denies: depression Larry/Lymph: Denies: easy bruising All/Imm: Denies: urticaria PFSH ED PFSH: Medical History Anxiety C. difficile colitis (~04/2021) GERD (gastroesophageal reflux disease) No pertinent past medical history neghx: htn,dm,thyroid,dvt/pe PCP: none Surgical History H/O esophagogastroduodenoscopy (05/15/21) History of tonsillectomy and adenoidectomy Hx of anterior cruciate ligament tear reconstruction Status post colonoscopy (05/15/21) Family History Mother Diabetes Grandmother Diabetes Maternal Heart disease Maternal Hypercholesteremia Maternal Hypertension Maternal Thyroid disease Maternal Grandfather Diabetes Maternal Thyroid disease Maternal Denies family history of Colon cancer Ovarian cancer Hyperlipidemia Breast cancer Uterine cancer Stroke Social History Smoking and tobacco status: never smoked Female Reproductive History: Date of last menstrual period: 07/15/22 Spontaneous abortions: No Physical Exam Const: COMMON NORMALS: no acute distress, patient oriented x3 and healthy appearing HENMT: COMMON NORMALS: normocephalic and atraumatic HEAD & SCALP: normocephalic and atraumatic Eye: COMMON NORMALS: Equal, round and reactive pupils present and EOMs intact bilaterally PUPIL: Yes Equal, round and reactive pupils present Neck/C-Spine: OTHER: tenderness along c spine Chest: COMMONS NORMALS: normal inspection of the chest and normal palpation of entire chest wall Resp: COMMON NORMALS: normal respiratory effort, No retractions, No use of accessory muscles and clear to auscultation bilaterally AUSCULTATION: clear to auscultation bilaterally Cardio: COMMON NORMALS: regular rate, regular rhythm and No murmurs present (Cardio) RATE: regular rate RHYTHM: regular rhythm GI: COMMON NORMALS: Normal to inspection, nondistended, normoactive bowel sounds present, Soft to palpation, non-tender and no masses PALPATION: Yes Soft to palpation Back/Pelvis: OTHER: tenderness along t spine no obvious deformity Extremity: COMMON NORMALS: normal to inspection and full ROM OTHER: tenderness along right shoulder no obvious deformity Neuro: COMMON NORMALS: patient oriented x3, moves all extremities and no focal motor deficits Psych: COMMON NORMALS: mental status grossly normal, Normal thought process present and cooperative THOUGHT PROCESS: Normal thought process present Skin: COMMON NORMALS: no rashes or lesions noted and no wounds GENERAL SKIN EXAM: no rashes or lesions noted Course Vital Signs: Vital signs: Vital Signs Temperature 97.9 F 07/22/22 20:51 Pulse Rate 71 07/22/22 20:51 Respiratory Rate 14 07/22/22 20:51 Blood Pressure 142/88 07/22/22 20:51 Pulse Oximetry 100 07/22/22 20:51 Oxygen Delivery Me thod 07/22/22 20:51 MDM - Fall Medical Decision Making Patient presents here with neck and back pain from a fall she also some right shoulder pain x-rays CT here are normal she is well-appearing here she did not hit her head no loss conscious she is stable for discharge she is to follow-up with PCP and return if worsening. Lab Data Radiology Impressions Cervical Spine CT 07/22/22 21:09 IMPRESSION: No acute findings. Discharge Plan Discharge Patient Disposition: Home Clinical Impression: Fall, Neck pain, Back pain Condition: Stable Prescriptions: New methocarbamol 750 mg tablet 750 mg PO Q6H PRN (Reason: spasms) Qty: 20 0RF Naprosyn 500 mg tablet 500 mg PO BID PRN (Reason: pain) Qty: 20 0RF No Action Zyrtec 10 mg capsule 10 mg PO DAILY PRN etonogestrel-ethinyl estradiol [NuvaRing] 0.12-0.015 mg/24 hr ring 1 vag ring vaginal .monthly Qty: 3 3RF buspirone 5 mg tablet 5 mg PO TID Qty: 60 2RF penicillin V potassium 500 mg tablet 500 mg PO BID 10 Days Qty: 20 0RF guaifenesin 400 mg tablet 400 mg PO TID Qty: 30 0RF azithromycin [Zithromax Z-Abebe] 250 mg tablet See Rx Instructions PO .COMPLEX Qty: 6 0RF Rx Instructions: take 500 mg today (day 1), then 250 mg for 4 days (days 2-5) PO Discharge Orders: Discharge ED (Routine); Ordered 07/22/22 Ordered By: Araceli Toney Referrals: Nikolai Logan DO [Primary Care Provider] - 1-3 days Discharge Diet: Advance as tolerated Discharge Activity: Resume usual activity Patient Instructions: Cervical Strain (ED), Back Pain (ED) Coding Level of Care Code ED Cancer Registry Manager for Chg Fwd Exam Comprehensive
[2022-07-22] MEDS: naproxen 500 mg Tablet PO (21:50)
[2022-07-22 21:54] VITALS: BP 132/87; PULSE 86; RESP 16; O2SAT 98
== END 2022-07-22 21:55 | disposition home or self-care (01) ==
PROVIDERS: Emergency Provider Emergency Medicine; PCP Family Medicine
DX: M54.2 Cervicalgia (principal); M54.9 Dorsalgia, unspecified; W00.0XXA Fall on same level due to ice and snow, initial encounter
CPT/HCPCS: 72072; 72125; 73030; 99284

== ENCOUNTER 2022-08-03 06:22 | Emergency (ER) | payer MEDICAID, SELFPAY ==
[2022-08-03] VITALS (38 sets, daily range): BP systolic 112–147; BP diastolic 57–112; PULSE 73–89; RESP 18–21; TEMP 36.9; O2SAT 80–100; BMI 34.9
--- NOTE | 2022-08-03 06:33 | ECG_ITS ---
[facility] Test Date: 2022-08-03 Pat Name: Mary Jimenez Department: Room: Gender: Female Card Maker: : [id number] Requested By: Gurpreet Alvarez Order Number: [id number] Arpita MD: Christina Freeman M.D. Measurements Intervals [place] Rate: 83 P: 61 TX: 177 QRS: 0 QRSD: 88 T: 17 QT: 344 QTc: 404 Interpretive Statements SINUS RHYTHM MINIMAL VOLTAGE CRITERIA FOR LVH, CONSIDER NORMAL VARIANT [MEETS CRITERIA IN ONE OF: R(aVL), S(V1), R(V5), R(V5/V6)+S(V1)] Compared to ECG 06/30/2022 11:52:22 No significant changes Electronically Signed On 08-03-2022 8:34:56 HOSTESS CASHIER by Christina Freeman M.D. [id number]
[2022-08-03] MEDS: ipratropium-albuterol 3 mL Neb INHALATION (06:50)
--- NOTE | 2022-08-03 06:54 | ED_ITS ---
HPI - SOB/Dyspnea General: Chief Complaint: Shortness of Breath/Dyspnea Stated Complaint: respiratory distress Source: patient Mode of arrival: EMS History of Present Illness: HPI Narrative: 22-year-old female who presents to the emergency room with complaints of wheezing and shortness of breath. She states she woke up with it this morning at around 530 EMS brought patient in and given her Decadron and a DuoNeb in route. Oxygen sat 100% on room air. MD elicited complaint: shortness of breath and cough Pertinent past history: asthma Onset (ago): hour(s) Timing: constant Severity: mild Exacerbating factors: nothing Relieving factors: nothing Known history of: asthma Associated symptoms: Deny abdominal pain, chest congestion, chest pain, cough, diaphoresis, dizziness, extremity pain, fever(s), hemoptysis, lightheadedness, myalgias, nausea, orthopnea, palpitations, paresthesias, polydipsia, polyuria, rash, sense of impending doom, syncope or vomiting Treatment prior to arrival: oxygen, bronchodilator and other (Steroids) Review of Systems Const: Denies: fever(s), chills, fatigue or diaphoresis ENMT: Denies: throat pain, ear or mastoid pain, nasal discharge or nasal congestion Card: Denies: chest pain, palpitations, irregular heart rhythm, edema, lightheadedness, syncope or orthopnea Resp: Reports: non-productive cough and wheezing; Denies: dyspnea, productive cough, hemoptysis or chest congestion GI: Denies: abdominal pain, nausea or vomiting : Denies: flank pain, difficulty voiding, dysuria, urinary frequency or urinary urgency Musc: Denies: neck pain, back pain or extremity pain Skin/Breast: Denies: rash or pruritus Neuro: Denies: dizziness Endo: Denies: polyuria or polydipsia PFS ED PFSH: Medical History (Updated 08/11/22 @ 00:00 by EDGAR Vega) Anxiety C. difficile colitis (~04/2021) GERD (gastroesophageal reflux disease) No pertinent past medical history neghx: htn,dm,thyroid,dvt/pe PCP: none Reactive airway disease with acute exacerbation Surgical History H/O esophagogastroduodenoscopy (05/15/21) History of tonsillectomy and adenoidectomy Hx of anterior cruciate ligament tear reconstruction Status post colonoscopy (05/15/21) Family History Mother Diabetes Grandmother Diabetes Maternal Heart disease Maternal Hypercholesteremia Maternal Hypertension Maternal Thyroid disease Maternal Grandfather Diabetes Maternal Thyroid disease Maternal Denies family history of Colon cancer Ovarian cancer Hyperlipidemia Breast cancer Uterine cancer Stroke Social History Smoking and tobacco status: never smoked Female Reproductive History: Date of last menstrual period: 07/17/22 Spontaneous abortions: No Physical Exam Const: GENERAL APPEARANCE: cooperative and comfortable ORIENTATION/CONSCIOUSNESS: Yes awake, Yes oriented to person, Yes oriented to place and Yes oriented to time HENMT: COMMON NORMALS: normocephalic and atraumatic HEAD & SCALP: normocephalic and atraumatic Resp: COMMON NORMALS: normal respiratory effort, No retractions and No use of accessory muscles AUSCULTATION: wheezes Cardio: COMMON NORMALS: regular rate, regular rhythm and No murmurs present (Cardio) RATE: regular rate RHYTHM: regular rhythm GI: COMMON NORMALS: Soft to palpation and No hepatosplenomegaly present AUSCULTATION: Yes normoactive bowel sounds PALPATION: Yes Soft to palpation, No Tenderness to palpation present (GI), No Guarding due to palpation present (GI) and Yes No hepatosplenomegaly present Extremity: COMMON NORMALS: normal to inspection, capillary refill normal, no clubbing, cyanosis or edema, no calf tenderness and no pedal edema Neuro: SENSORIUM/ORIENTATION: Yes oriented to person, Yes oriented to place and Yes oriented to time Skin: COMMON NORMALS: no rashes or lesions noted GENERAL SKIN EXAM: no rashes or lesions noted Course Vital Signs: Vital signs: Vital Signs Temperature 98.4 F 08/03/22 06:33 Pulse Rate 73 08/03/22 10:16 Respiratory Rate 18 08/03/22 10:16 Blood Pressure 131/95 08/03/22 10:16 Pulse Oximetry 99 08/03/22 10:16 Oxygen Delivery Me thod 08/03/22 06:47 MDM - SOB/Dyspnea Medical Decision Making Asthma exacerbation improved after treatment. Sats are good. Steroids and nebulizers have decreased her wheezing will discharge home on a steroid taper use albuterol regularly and follow-up with her primary care doctor within the week return if has further problems. Medical Records I reviewed the patient's medical records. Lab Data I reviewed the patient's lab results. 08/03/22 06:39 08/03/22 06:39 Labs/Radiology: Radiology Impressions Chest X-Ray 08/03/22 07:20 IMPRESSION: No acute chest abnormality. Laboratory Results WBC 10.3 10^3/uL (4.0-10.0) H 08/03/22 06:39 RBC 4.89 10^6/uL (4.1-5.3) 08/03/22 06:39 Hgb 12.9 g/dL (11.5-15.3) 08/03/22 06:39 Hct 41.9 % (37.0-47.0) 08/03/22 06:39 MCV 85.7 fl (81-99) 08/03/22 06:39 MCH 26.4 pg (28.0-34.0) L 08/03/22 06:39 MCHC 30.8 g/dL (30.0-36.0) 08/03/22 06:39 RDW 14.0 % (12.1-15.1) 08/03/22 06:39 Plt Count 371 10^3/cmm (130-400) 08/03/22 06:39 MPV 9.2 fL (7.4-10.4) 08/03/22 06:39 Neut % (Auto) 51.6 % 08/03/22 06:39 Lymph % (Auto) 40.4 % 08/03/22 06:39 [place] % (Auto) 6.2 % 08/03/22 06:39 Eos % (Auto) 1.0 % 08/03/22 06:39 Baso % (Auto) 0.5 % 08/03/22 06:39 Neut # (Auto) 5.32 10^3/uL (1.8-7.7) 08/03/22 06:39 Lymph # (Auto) 4.2 10^3/uL (0.8-4.8) 08/03/22 06:39 [place] # (Auto) 0.6 10^3/uL (0.2-0.9) 08/03/22 06:39 Eos # (Auto) 0.1 10^3/uL (0.0-0.8) 08/03/22 06:39 Baso # (Auto) 0.1 10^3/uL (0.0-0.1) 08/03/22 06:39 Nucleated RBC % (auto) 0 % 08/03/22 06:39 Nucleated RBCs # 0.0 /100WBC 08/03/22 06:39 Sodium 134 mmol/L (136-145) L 08/03/22 06:39 Potassium 3.4 mmol/L (3.5-5.1) L 08/03/22 06:39 Chloride 98 mmol/L (98-107) 08/03/22 06:39 Carbon Dioxide 22 mmol/L (22-29) 08/03/22 06:39 Anion Gap 17.4 (5-19) 08/03/22 06:39 BUN 7 mg/dL (6-20) 08/03/22 06:39 Creatinine 0.6 mg/dL (0.5-0.9) 08/03/22 06:39 GFR Calculation 125.0 mL/min (90-130) 08/03/22 06:39 Glucose 94 mg/dL (65-115) 08/03/22 06:39 Calculated Osmolality 276 mOsm/kg (285-295) L 08/03/22 06:39 Calcium 9.8 mg/dL (8.5-10.5) 08/03/22 06:39 Discharge Plan Discharge Patient Disposition: Home Clinical Impression: Asthma with exacerbation Condition: Stable Prescriptions: New albuterol sulfate 2.5 mg /3 mL (0.083 %) solution for nebulization 2.5 mg inhalation Q4H PRN (Reason: shortness of breath or wheezing) Qty: 180 0RF No Action doxycycline hyclate 100 mg capsule 100 mg PO BID 10 Days Qty: 20 0RF montelukast [Singulair] 10 mg tablet 10 mg PO DAILY PRN (Reason: SOB wheezing) Qty: 30 0RF Zyrtec 10 mg capsule 10 mg PO DAILY PRN (Reason: breathing allergic) Qty: 30 0RF albuterol sulfate 90 mcg/actuation HFA aerosol inhaler 2 inh INHALATION Q4H PRN (Reason: shortness of breath or wheezing) Qty: 18 0RF etonogestrel-ethinyl estradiol [NuvaRing] 0.12-0.015 mg/24 hr ring 1 vag ring vaginal .monthly Qty: 3 3RF buspirone 5 mg tablet 5 mg PO TID Qty: 60 2RF guaifenesin 400 mg tablet 400 mg PO TID Qty: 30 0RF Discharge Orders: Discharge ED (Routine); Ordered 08/03/22 Ordered By: Gurpreet Ross Other Ambulatory Orders: DME: Nebulizer with Neb Kit (Order) Location: None Selected Ordered By: Gurpreet Ross Referrals: Nikolai Logan DO [Primary Care Provider] - Patient Instructions: Opioid Safety, Pain Management Activity Restrictions/Additional Instructions: You are seen today for exacerbation of your asthma. Your symptoms improved with treatment in the emergency room recommend that you take a prednisone taper over the next 5 to 7 days as well as use albuterol every 4 hours while awake. Additionally we will have you take doxycycline 100 mg twice daily for 7 days return if you have further problems. 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
--- NOTE | 2022-08-03 07:20 | XR_ITS ---
WS: [id number] XR chest 1V portable [id number] REASON FOR EXAM: dyspnea/cough FINDINGS: The chest is unchanged compared to 06/30/2022. The heart and mediastinum are within normal limits. Calcified granulomatous disease in both hemithoraces. No active pulmonary parenchymal or pleural disease. No abnormality of the bony thorax. XR/XR chest 1V portable [id number] IMPRESSION: No acute chest abnormality.
[2022-08-03 07:26] LABS: Basophils # 0.1 10^3/uL (0.0-0.1); Basophils % 0.5 %; Eosinophils # 0.1 10^3/uL (0.0-0.8); Hematocrit 41.9 % (37.0-47.0); Hemoglobin 12.9 g/dL (11.5-15.3); Lymphocytes # 4.2 10^3/uL (0.8-4.8); Lymphocytes % 40.4 %; Mean Corpuscular HGB Conc 30.8 g/dL (30.0-36.0); Mean Corpuscular Hemoglobin 26.4 pg (28.0-34.0); Mean Corpuscular Volume 85.7 fl (81-99); Mean Platelet Volume 9.2 fL (7.4-10.4); Monocytes # 0.6 10^3/uL (0.2-0.9); Monocytes % 6.2 %; Neutrophils # 5.32 10^3/uL (1.8-7.7); Neutrophils % 51.6 %; Nucleated Red Blood Cells % 0 %; Platelet Count 371 10^3/cmm (130-400); Red Blood Count 4.89 10^6/uL (4.1-5.3); White Blood Count 10.3 10^3/uL (4.0-10.0)
[2022-08-03 07:39] LABS: Anion Gap 17.4 (5-19); Blood Urea Nitrogen 7 mg/dL (6-20); Calcium 9.8 mg/dL (8.5-10.5); Carbon Dioxide 22 mmol/L (22-29); Chloride 98 mmol/L (98-107); Glucose 94 mg/dL (65-115); Osmolality Calculated 276 mOsm/kg (285-295); Potassium 3.4 mmol/L (3.5-5.1); Sodium 134 mmol/L (136-145)
== END 2022-08-03 10:19 | disposition home or self-care (01) ==
PROVIDERS: Emergency Provider Family Medicine; PCP Family Medicine
DX: J45.901 Unspecified asthma with (acute) exacerbation (principal)
CPT/HCPCS: 71045; 80048; 85025; 93005; 94640; 99285

== ENCOUNTER → 2022-08-12 13:26 | Outpatient (BNVA) | payer MEDICAID, SELFPAY | PROVIDERS: PCP Family Medicine; Visit Provider Internal Medicine | DX: R00.2 Palpitations (principal); R55 Syncope and collapse; R06.02 Shortness of breath; R07.9 Chest pain, unspecified | CPT/HCPCS: 93270; 99204 ==

== ENCOUNTER 2022-08-17 14:20 | Observation (INO) | payer MEDICAID, SELFPAY ==
[2022-08-17] VITALS (14 sets, daily range): BP systolic 112–139; BP diastolic 57–86; PULSE 68–83; RESP 13–22; TEMP 36.8–36.9; O2SAT 98–100
--- NOTE | 2022-08-17 14:56 | CT_ITS ---
WS: [id number] CT HEAD TECHNIQUE: Noncontrast CT of the head obtained from the skullbase to the vertex. CLINICAL INFORMATION: Syncope COMPARISON: 6 ,019 DLP: 1106.[address] scans at [facility] use at least one of these dose optimization techniques: automated e xposure control; mA and/or kV adjustment per patient size (includes targeted exams where dose is matc hed to clinical indication); or iterative reconstruction. FINDINGS: Beam hardening artifact from earrings. No evidence of intracranial hemorrhage or mass effect. Ventricular system and basal cisterns are ortega nt. No extra-axial fluid collections. No evidence of mass or mass effect. Normal pineda-white different iation. Incidental slightly low-lying cerebellar tonsils unchanged since 2019 Paranasal sinuses and mastoid air cells are well aerated. .Normal visualized soft tissues. CT/CT head wo con* [id number] IMPRESSION: 1. No evidence of intracranial hemorrhage or mass effect. 2. No acute intracranial findings.
--- NOTE | 2022-08-17 15:00 | ED_ITS ---
HPI - Syncope General: Chief Complaint: Syncope Stated Complaint: passed out/hit head Time Seen by Provider: 08/17/22 14:35 History of Present Illness: This 22-year-old female with a history of generalized anxiety disorder, PCOS and GERD presents to the ER following a syncopal episode. She was getting out of her car when she started feeling dizzy followed by a syncopal episode. She recommends that she may have been out for about a minute. Patient has a history of recurrent syncope for which she sees Dr. Roldan. About 5 days ago, she was set up with a 30-day event monitor. He had a 48-hour Holter monitor prior to that. Currently, patient is at her baseline. She denies chest pain, shortness of breath, nausea or vomiting. She complains of right ankle pain because she twisted her right ankle during the fall. She also complains of headache. Review of records shows that she has never had a CT brain before. She does not smoke, drinks alcohol socially and denies use of illicit substances. Associated symptoms: Reports headache(s); Deny chest pain or lightheadedness Review of Systems Const: Denies: chills, body aches or change in appetite Eyes: Denies: change in vision or eye discharge ENMT: Denies: throat pain, dental pain or nasal discharge Card: Denies: chest pain or lightheadedness : Denies: dysuria Musc: Reports: other (Right ankle pain); Denies: neck pain or back pain Neuro: Reports: headache(s) and dizziness; Denies: weakness in extremities Psych: Denies: depression Larry/Lymph: Denies: easy bruising All/Imm: Denies: urticaria, tongue swelling or facial swelling PFSH ED PFSH: Medical History Anxiety C. difficile colitis (~04/2021) GERD (gastroesophageal reflux disease) No pertinent past medical history neghx: htn,dm,thyroid,dvt/pe PCP: none Reactive airway disease with acute exacerbation Surgical History H/O esophagogastroduodenoscopy (05/15/21) History of tonsillectomy and adenoidectomy Hx of anterior cruciate ligament tear reconstruction Status post colonoscopy (05/15/21) Family History Mother Diabetes Grandmother Diabetes Maternal Heart disease Maternal Hypercholesteremia Maternal Hypertension Maternal Thyroid disease Maternal Grandfather Diabetes Maternal Thyroid disease Maternal Denies family history of Colon cancer Ovarian cancer Hyperlipidemia Breast cancer Uterine cancer Stroke Social History Smoking and tobacco status: never smoked Female Reproductive History: Spontaneous abortions: No Physical Exam Const: COMMON NORMALS: no acute distress, patient oriented x3, no limitations and alert HENMT: COMMON NORMALS: normocephalic HEAD & SCALP: normocephalic Eye: COMMON NORMALS: EOMs intact bilaterally Neck/C-Spine: COMMON NORMALS: full ROM and supple Chest: COMMONS NORMALS: normal inspection of the chest Resp: COMMON NORMALS: normal respiratory effort, No retractions, No use of accessory muscles and clear to auscultation bilaterally AUSCULTATION: clear to auscultation bilaterally Cardio: COMMON NORMALS: regular rate, regular rhythm and No murmurs present (Cardio) RATE: regular rate RHYTHM: regular rhythm GI: COMMON NORMALS: Normal to inspection, nondistended, normoactive bowel sounds present and non-tender : COMMON NORMALS: Yes no CVA tenderness BLADDER/KIDNEY EXAM: Yes no CVA tenderness Back/Pelvis: COMMON NORMALS: no CVA tenderness and no thoracic nor lumbar tenderness Extremity: OTHER: Good range of right ankle movement though with pain. No bruising or swelling. No distal neurovascular deficit. Neuro: COMMON NORMALS: patient oriented x3 and no focal motor deficits SENSORIUM/ORIENTATION: Yes alert Psych: COMMON NORMALS: mental status grossly normal and cooperative Course Reevaluation(s): Reevaluation #1: Discussed patient's presentation with Dr. 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 He notes that at that time patient had the syncopal episode (around 1400 hrs.), there was no recording from the event monitor. He suspects that contact between the event monitor and patient's skin was poor at the time. It could have been related to the fall. As an alternative, he recommends that patient be placed in observat ion for 24 hours. Time: 15:07 Vital Signs: Vital signs: Vital Signs Temperature 98.0 F 08/18/22 11:44 Pulse Rate 64 08/18/22 11:44 Respiratory Rate 18 08/18/22 11:44 Blood Pressure 134/84 08/18/22 11:44 Pulse Oximetry 96 08/18/22 11:44 Oxygen Delivery Me thod 08/18/22 08:49 MDM - Syncope Medical Decision Making Medical decision making: Patient has a history of recurring syncopal episodes. She is currently on a 30- day event monitor and had a syncopal episode earlier today. Unfortunately at the time she had the syncope, her event monitor did not capture her cardiac rhythm, possibly due to poor contact between the event monitor and her skin. Case discussed with Dr. Oliveira who recommended that patient be admitted for at least a 24-hour observation. Case discussed with Dr. Hernandez who accepted patient for admission. Lab Data 08/17/22 15:40 08/17/22 15:[address] 08/17/22 14:56 IMPRESSION: 1. No evidence of intracranial hemorrhage or mass effect. 2. No acute intracranial findings. Ankle X-Ray 08/17/22 15:07 IMPRESSION: 1. No acute ankle fracture or dislocation. Laboratory Results WBC 7.0 10^3/uL (4.0-10.0) 08/17/22 15:40 RBC 4.55 10^6/uL (4.1-5.3) 08/17/22 15:40 Hgb 12.2 g/dL (11.5-15.3) 08/17/22 15:40 Hct 39.2 % (37.0-47.0) 08/17/22 15:40 MCV 86.2 fl (81-99) 08/17/22 15:40 MCH 26.8 pg (28.0-34.0) L 08/17/22 15:40 MCHC 31.1 g/dL (30.0-36.0) 08/17/22 15:40 RDW 14.3 % (12.1-15.1) 08/17/22 15:40 Plt Count 360 10^3/cmm (130-400) 08/17/22 15:40 MPV 8.9 fL (7.4-10.4) 08/17/22 15:40 Neut % (Auto) 50.1 % 08/17/22 15:40 Lymph % (Auto) 41.9 % 08/17/22 15:40 [place] % (Auto) 5.8 % 08/17/22 15:40 Eos % (Auto) 1.8 % 08/17/22 15:40 Baso % (Auto) 0.3 % 08/17/22 15:40 Neut # (Auto) 3.52 10^3/uL (1.8-7.7) 08/17/22 15:40 Lymph # (Auto) 3.0 10^3/uL (0.8-4.8) 08/17/22 15:40 [place] # (Auto) 0.4 10^3/uL (0.2-0.9) 08/17/22 15:40 Eos # (Auto) 0.1 10^3/uL (0.0-0.8) 08/17/22 15:40 Baso # (Auto) 0.0 10^3/uL (0.0-0.1) 08/17/22 15:40 Nucleated RBC % (auto) 0 % 08/17/22 15:40 Nucleated RBCs # 0.0 /100WBC 08/17/22 15:40 D-Dimer 0.29 ug/mIFEU (0-0.59) 08/17/22 15:40 Sodium 141 mmol/L (136-145) 08/17/22 15:40 Potassium 3.6 mmol/L (3.5-5.1) 08/17/22 15:40 Chloride 105 mmol/L (98-107) 08/17/22 15:40 Carbon Dioxide 26 mmol/L (22-29) 08/17/22 15:40 Anion Gap 13.6 (5-19) 08/17/22 15:40 BUN 10 mg/dL (6-20) 08/17/22 15:40 Creatinine 0.6 mg/dL (0.5-0.9) 08/17/22 15:40 GFR Calculation 125.0 mL/min (90-130) 08/17/22 15:40 Glucose 72 mg/dL (65-115) 08/17/22 15:40 Calculated Osmolality 290 mOsm/kg (285-295) 08/17/22 15:40 Calcium 9.1 mg/dL (8.5-10.5) 08/17/22 15:40 Total Bilirubin 0.4 mg/dL (0.15-1.2) 08/17/22 15:40 AST 16 U/L (0-32) 08/17/22 15:40 ALT 14 U/L (0-33) 08/17/22 15:40 Alkaline Phosphatase 87 U/L (35-105) 08/17/22 15:40 Troponin T Gen 5 ng/L 6 ng/L (0-10) 08/17/22 15:40 Total Protein 7.3 g/dL (6.6-8.7) 08/17/22 15:40 Albumin 4.4 g/dL (3.5-5.2) 08/17/22 15:40 Globulin 2.9 g/dL (1.3-4.6) 08/17/22 15:40 HCG, Qual Negative (Negative) 08/17/22 15:40 Urine Opiates Screen Negative ng/mL (Negative) 08/17/22 17:58 Ur Barbiturates Screen Negative ng/mL (Negative) 08/17/22 17:58 Ur Phencyclidine Scrn Negative ng/mL (Negative) 08/17/22 17:58 Ur Amphetamines Screen Negative ng/mL (Negative) 08/17/22 17:58 U Benzodiazepines Scrn Negative ng/mL (Negative) 08/17/22 17:58 Urine Cocaine Screen Negative ng/mL (Negative) 08/17/22 17:58 U Marijuana (THC) Screen Negative ng/mL (Negative) 08/17/22 17:58 Discharge Plan Discharge Patient Disposition: Placed in Observation Admit Provider: Ailyn Hernandez Clinical Impression: Recurrent syncope Coding Level of Care Code ED Senior Engineer for Yesica Manzo
--- NOTE | 2022-08-17 15:07 | XR_ITS ---
WS: [id number] Exam: XR ankle RT 2V [id number] Date/Time of Exam: 08/17/2022 3:12 PM Reason For Exam: fall Comparison 04/16/2022. No fracture or dislocation. The ankle mortise is preserved. Unremarkable soft tissues. XR/XR ankle RT 2V [id number] IMPRESSION: 1. No acute ankle fracture or dislocation.
[2022-08-17 16:01] LABS: Basophils % 0.3 %; Eosinophils # 0.1 10^3/uL (0.0-0.8); Eosinophils % 1.8 %; Hematocrit 39.2 % (37.0-47.0); Hemoglobin 12.2 g/dL (11.5-15.3); Lymphocytes % 41.9 %; Mean Corpuscular HGB Conc 31.1 g/dL (30.0-36.0); Mean Corpuscular Hemoglobin 26.8 pg (28.0-34.0); Mean Corpuscular Volume 86.2 fl (81-99); Mean Platelet Volume 8.9 fL (7.4-10.4); Monocytes # 0.4 10^3/uL (0.2-0.9); Monocytes % 5.8 %; Neutrophils # 3.52 10^3/uL (1.8-7.7); Neutrophils % 50.1 %; Nucleated Red Blood Cells % 0 %; Platelet Count 360 10^3/cmm (130-400); Red Blood Count 4.55 10^6/uL (4.1-5.3); Red Cell Distribution Width 14.3 % (12.1-15.1)
[2022-08-17 16:21] LABS: Alanine Aminotransferase 14 U/L (0-33); Albumin Level 4.4 g/dL (3.5-5.2); Alkaline Phosphatase 87 U/L (35-105); Anion Gap 13.6 (5-19); Aspartate Amino Transferase 16 U/L (0-32); Blood Urea Nitrogen 10 mg/dL (6-20); Calcium 9.1 mg/dL (8.5-10.5); Carbon Dioxide 26 mmol/L (22-29); Chloride 105 mmol/L (98-107); Globulin 2.9 g/dL (1.3-4.6); Glucose 72 mg/dL (65-115); Osmolality Calculated 290 mOsm/kg (285-295); Potassium 3.6 mmol/L (3.5-5.1); Sodium 141 mmol/L (136-145); Total Bilirubin 0.4 mg/dL (0.15-1.2); Total Protein 7.3 g/dL (6.6-8.7)
--- NOTE | 2022-08-17 16:30 | PC.PHAR ---
pt states she takes care of her own medications-pt states she finished her doxycycline hyclate 100mg bid filled 08/03/22 10d/s last week-ext med history doesnt show when nuvaring or singulair was filled last but pt states she takes/uses them both-
--- NOTE | 2022-08-17 17:34 | USCV_ITS ---
Mary Jimenez Age: 22 Gender: F : 2000 Exam Date: 08/17/2022 18:16 Ordering Phys: Ailyn Hernandez MD Technologist: MISAEL Exam Location: [facility] [place] Indication: 1) palpitations x 2-3 years 2) ten syncopal episodes in the last 3 weeks, no such episodes prior to that time. BP: 135 / 77 HR: 69 Rhythm: Sinus Technical Quality: Good MEASUREMENTS (Male / Female) Normal Values 2D ECHO LV Diastolic Diameter PLAX 4.3 cm 4.2 - 5.9 / 3.9 - 5.3 cm LV Systolic Diameter PLAX 2.8 cm IVS Diastolic Thickness 0.9 cm 0.6 - 1.0 / 0.6 - 0.9 cm IVS Systolic Thickness 1.2 cm LVPW Diastolic Thickness 0.9 cm 0.6 - 1.0 / 0.6 - 0.9 cm LVPW Systolic Thickness 1.4 cm LVOT Diameter 1.8 cm LV Ejection Fraction 2D Teich 65.7 % LV Ejection Fraction MOD 2C 68.1 % LV Ejection Fraction 2C AL 70.0 % LA Diameter 3.3 cm LA Width 3.3 cm LA Height 5.0 cm RA Width 3.3 cm RA Height 4.7 cm Aorta at Sinotubular Diameter 2.5 cm IVC Diameter 1.4 cm M-MODE Aortic Annulus Diameter 2.7 cm LA Ao Ratio MM 1.2 MV E Point Septal Separation 0.4 cm DOPPLER AV Peak Velocity 152.0 cm/s LVOT Peak Velocity 97.0 cm/s AV Area Cont Eq vti 1.6 cm squared AV Area Cont Eq pk 1.7 cm squared MV Area PHT 4.5 cm squared Mitral E to A Ratio 1.9 MV E' Velocity 59.0 cm/s Mitral E to MV E' Ratio 8.4 Mitral E to LV E' Lateral Ratio 7.4 Mitral E to LV E' Septal Ratio 10.0 TR Peak Velocity 198.0 cm/s TR Peak Gradient 15.7 mmHg TV Peak E Velocity 44.0 cm/s Right Atrial Pressure 5.0 mmHg Pulmonary Artery Systolic Pressu 20.7 mmHg PV Peak Velocity 109.0 cm/s RV Acceleration Time 0.1 s RV Ejection Time 0.3 s RV AcT/ET 0.2 Medications Complications Proc. Components FINDINGS Left Ventricle Left ventricle is normal in size. LV systolic function is normal with EF of 55 to 60%. No regional wall motion abnormalities are seen. Right Ventricle Normal in size and function Right Atrium Normal in size Left Atrium Normal in size LA Appendage Not visualized IA Septum Grossly normal Mitral Valve Structurally normal mitral valve. Aortic Valve Structurally normal aortic valve. No significant stenosis or regurgitation seen. Tricuspid Valve Mild tricuspid regurgitation. Pulmonary artery systolic pressure is normal Pulmonic Valve Not well visualized Pericardium Normal Aorta Normal in size CONCLUSIONS LV systolic function is normal with EF 55 to 60% No significant valvular heart disease Mild tricuspid regurgitation No comparison studies are available Galileo Oliveira MD (Electronically Signed) Final Date: 18 August 2022 12:02 S
--- NOTE | 2022-08-17 17:46 | P.HP_ITS ---
Providers/Chief Complaint Admitting Physician: Ailyn Hernandez MD Primary Care Provider: Nikolai Logan DO Chief Complaint: passed out/hit head History of Present Illness Mary Jimenez is a 22 year old female with past medical history of asthma who is undergoing outpatient evaluation currently for palpitations with cardiology. She has had a Holter monitor placed which in the past that showed sinus tachycardia and no other arrhythmias. She has been dealing with syncopal epis odes on and off for about 3 weeks now. today she was getting out of her car when she started to feel dizzy and this was followed by a syncopal episode wherein she was unconscious for about 1 minute. She denies any recent IV drug use. Review of Systems General: Reports: 10 or more systems reviewed and unremarkable except in HPI and below Const: Denies: fever(s), chills or body aches Eyes: Denies: change in vision, blurry vision or photophobia ENMT: Reports: hoarseness; Denies: throat pain, enlarged tonsils, odynophagia or nasal congestion Card: Denies: chest pain, palpitations, irregular heart rhythm, edema, swelling of feet/ankles, lightheadedness, pre-syncope, dyspnea on exertion or orthopnea Resp: Denies: dyspnea, productive cough, non-productive cough, wheezing, stridor, pain on inspiration, change in phlegm color, hemoptysis or chest congestion GI: Denies: abdominal pain, nausea, vomiting, hematemesis, coffee ground sondra sis, dysphagia, heartburn, diarrhea, constipation, GI cramping, change in stool character, hematochezia or melena : Denies: flank pain, difficulty voiding, dysuria, urinary frequency, urinary urgency, urinary hesitancy or hematuria Musc: Denies: neck pain, back pain, extremity pain, joint swelling, joint warmth or deformity Neuro: Denies: headache(s), numbness in extremities, weakness in extremities, sensory changes, difficulty walking, frequent falls, dizziness, vertigo, behavioral changes, Slurred speech present or seizure-like activity Psych: Denies: anxiety, depression, suicidal ideation or homicidal ideation Endo: Denies: polyuria, polydipsia, tired all the time, cold intolerance or hot flashes Larry/Lymph: Denies: easy bruising or easy bleeding Medications/Allergies Home Medications Medication Instructions Recorded Confirmed Last Taken Type albuterol sulfate 2.5 mg/3 mL 2.5 mg (3 mL) inhalation Q4H PRN 08/03/22 08/17/22 Unknown Rx (0.083 %) solution for nebulization shortness of breath or wheezing #180 mL albuterol sulfate 90 mcg/actuation 2 inh inhalation Q4H PRN shortness 08/06/22 08/17/22 Unknown Rx aerosol inhaler of breath or wheezing #18 grams cetirizine 10 mg capsule (Zyrtec) 10 mg PO DAILY PRN breathing 08/06/22 08/17/22 Unknown Rx allergic #30 caps etonogestrel 0.12 mg-ethinyl 1 vag ring vaginal Q21D 08/17/22 08/17/22 08/09/22 History estradiol 0.015 mg/24 hr vaginal ring (NuvaRing) montelukast 10 mg tablet 10 mg PO DAILY 08/17/22 08/17/22 08/17/22 History (Singulair) Allergies Allergy/AdvReac Type Severity Reaction Status Date / Time prednisone Allergy Mild ALGY-Hives Verified 08/17/22 16:23 Penicillins Allergy ALGY-Hives Verified 08/17/22 16:23 PFSH Acute PFSH: Medical History Anxiety C. difficile colitis (~04/2021) GERD (gastroesophageal reflux disease) No pertinent past medical history neghx: htn,dm,thyroid,dvt/pe PCP: none Reactive airway disease with acute exacerbation Surgical History H/O esophagogastroduodenoscopy (05/15/21) History of tonsillectomy and adenoidectomy Hx of anterior cruciate ligament tear reconstruction Status post colonoscopy (05/15/21) Family History Mother Diabetes Grandmother Diabetes Maternal Heart disease Maternal Hypercholesteremia Maternal Hypertension Maternal Thyroid disease Maternal Grandfather Diabetes Maternal Thyroid disease Maternal Denies family history of Colon cancer Ovarian cancer Hyperlipidemia Breast cancer Uterine cancer Stroke Social History Smoking and tobacco status: never smoked Female Reproductive History: Spontaneous abortions: No Vitals/I&O/Wt Last Vital Signs Temp 98.2 F 08/17/22 14:27 Pulse 71 08/17/22 16:30 Resp 13 08/17/22 16:30 BP 135/77 08/17/22 16:30 Pulse Ox 100 08/17/22 16:30 O2 Del Method 08/17/22 15:56 Weight last 48 hrs Weight 96.162 kg Physical Exam Narrative: General: No acute distress, AO x3 HEENT: PERRLA, pupils bilaterally equal and reactive, pallors not present Chest: Normal vesicular breath sounds, no added sounds, equal good air entry bilaterally CVS: S1-S2 regular, no murmurs, no tachycardia, no gallops, no rubs Abdomen: Soft, nontender, no organomegaly, bowel sounds present Neuro: No focal deficits, no facial deformity, AO x3, power 5/5 in all limbs Data 08/17/22 15:40 08/17/22 15:40 Other Labs: Radiology Impressions Head CT 08/17/22 14:56 IMPRESSION: 1. No evidence of intracranial hemorrhage or mass effect. 2. No acute intracranial findings. Ankle X-Ray 08/17/22 15:07 IMPRESSION: 1. No acute ankle fracture or dislocation. Laboratory Results WBC 7.0 10^3/uL (4.0-10.0) 08/17/22 15:40 RBC 4.55 10^6/uL (4.1-5.3) 08/17/22 15:40 Hgb 12.2 g/dL (11.5-15.3) 08/17/22 15:40 Hct 39.2 % (37.0-47.0) 08/17/22 15:40 MCV 86.2 fl (81-99) 08/17/22 15:40 MCH 26.8 pg (28.0-34.0) L 08/17/22 15:40 MCHC 31.1 g/dL (30.0-36.0) 08/17/22 15:40 RDW 14.3 % (12.1-15.1) 08/17/22 15:40 Plt Count 360 10^3/cmm (130-400) 08/17/22 15:40 MPV 8.9 fL (7.4-10.4) 08/17/22 15:40 Neut % (Auto) 50.1 % 08/17/22 15:40 Lymph % (Auto) 41.9 % 08/17/22 15:40 [place] % (Auto) 5.8 % 08/17/22 15:40 Eos % (Auto) 1.8 % 08/17/22 15:40 Baso % (Auto) 0.3 % 08/17/22 15:40 Neut # (Auto) 3.52 10^3/uL (1.8-7.7) 08/17/22 15:40 Lymph # (Auto) 3.0 10^3/uL (0.8-4.8) 08/17/22 15:40 [place] # (Auto) 0.4 10^3/uL (0.2-0.9) 08/17/22 15:40 Eos # (Auto) 0.1 10^3/uL (0.0-0.8) 08/17/22 15:40 Baso # (Auto) 0.0 10^3/uL (0.0-0.1) 08/17/22 15:40 Nucleated RBC % (auto) 0 % 08/17/22 15:40 Nucleated RBCs # 0.0 /100WBC 08/17/22 15:40 D-Dimer 0.29 ug/mIFEU (0-0.59) 08/17/22 15:40 Sodium 141 mmol/L (136-145) 08/17/22 15:40 Potassium 3.6 mmol/L (3.5-5.1) 08/17/22 15:40 Chloride 105 mmol/L (98-107) 08/17/22 15:40 Carbon Dioxide 26 mmol/L (22-29) 08/17/22 15:40 Anion Gap 13.6 (5-19) 08/17/22 15:40 BUN 10 mg/dL (6-20) 08/17/22 15:40 Creatinine 0.6 mg/dL (0.5-0.9) 08/17/22 15:40 GFR Calculation 125.0 mL/min (90-130) 08/17/22 15:40 Glucose 72 mg/dL (65-115) 08/17/22 15:40 Calculated Osmolality 290 mOsm/kg (285-295) 08/17/22 15:40 Calcium 9.1 mg/dL (8.5-10.5) 08/17/22 15:40 Total Bilirubin 0.4 mg/dL (0.15-1.2) 08/17/22 15:40 AST 16 U/L (0-32) 08/17/22 15:40 ALT 14 U/L (0-33) 08/17/22 15:40 Alkaline Phosphatase 87 U/L (35-105) 08/17/22 15:40 Troponin T Gen 5 ng/L 6 ng/L (0-10) 08/17/22 15:40 Total Protein 7.3 g/dL (6.6-8.7) 08/17/22 15:40 Albumin 4.4 g/dL (3.5-5.2) 08/17/22 15:40 Globulin 2.9 g/dL (1.3-4.6) 08/17/22 15:40 Urine Opiates Screen Negative ng/mL (Negative) 08/17/22 17:58 Ur Barbiturates Screen Negative ng/mL (Negative) 08/17/22 17:58 Ur Phencyclidine Scrn Negative ng/mL (Negative) 08/17/22 17:58 Ur Amphetamines Screen Negative ng/mL (Negative) 08/17/22 17:58 U Benzodiazepines Scrn Negative ng/mL (Negative) 08/17/22 17:58 Urine Cocaine Screen Negative ng/mL (Negative) 08/17/22 17:58 U Marijuana (THC) Screen Negative ng/mL (Negative) 08/17/22 17:58 A&P Assessment and plan (1) Syncope: Patient presenting to the hospital today with syncope, patient has had recurrent similar episodes in the past few weeks. She has recently seen cardiology for episodes of palpitations associated with dizziness and syncope. Her Holter monitor did not record any acute arrhythmias at the time of these events today apart from sinus tachycardia. We will admit to the hospital in observation and monitor her on telemetry. Additionally will obtain echocardiogram as in a young patient with syncope and palpitations would be concerned about HOCM. No acute ST-T wave changes on EKG. Review of outpatient medications shows patient is on NuvaRing, will check D- dimer though overall low concern for PE given that she is saturating 100% on room air. CT of her head today does not show any evidence of acute intracranial hemorrhage or mass effect. TSH was recently checked as outpatient and was normal at 2.85. Currently blood pressure is 1 well-controlled. If patient also is noted to have episodes of hypertension along with the tachycardia, will need further evaluation for possible pheochromocytoma We will continue albuterol nebulization here as needed and assess if albuterol may be correlating with her episodes of tachycardia. check orthostatics X-ray of the ankle obtained, no acute ankle fracture or dislocation. Attestations Medical Necessity Statement*: Admit for less than 2 MN for evaluation of reccurent syncope and Moderate Time for a total of 60 minutes, includes reviewing past or interval history, examining/interviewing patient, placing orders, counseling patient/family/other support, updating patient/family/other support, discussing plan of care with staff, communicating with other healthcare providers, documenting encounter and coordinating care Diagnoses Syncope R55
[2022-08-17 17:53] LABS: D Dimer 0.29 ug/mIFEU (0-0.59)
[2022-08-17 18:15] LABS: Amphetamines Screen Urine Negative (Negative); Barbiturates Screen Urine Negative (Negative); Benzodiazepines Screen Urine Negative (Negative); Cocaine Screen Urine Negative (Negative); Opiate Screen Urine Negative (Negative); PCP Screen Urine Negative (Negative); THC Screen Urine Negative (Negative)
[2022-08-17 18:44] LABS: Troponin T (5th) Once 6 ng/L (0-10)
[2022-08-17 21:13] LABS: HCG, Serum Qual Negative (Negative)
[2022-08-17] MEDS: acetaminophen 325 mg Tablet 650 MG PO (22:59)
[2022-08-18] VITALS: BP 117/69; PULSE 68; RESP 17; TEMP 36.8; O2SAT 96
[2022-08-18 04:00] VITALS: BP 120/72; PULSE 65; RESP 16; TEMP 36.8; O2SAT 96
[2022-08-18 06:24] LABS: Alanine Aminotransferase 11 U/L (0-33); Albumin Level 3.8 g/dL (3.5-5.2); Alkaline Phosphatase 74 U/L (35-105); Anion Gap 13.9 (5-19); Aspartate Amino Transferase 14 U/L (0-32); Blood Urea Nitrogen 9 mg/dL (6-20); Calcium 9.1 mg/dL (8.5-10.5); Carbon Dioxide 24 mmol/L (22-29); Chloride 106 mmol/L (98-107); Globulin 2.5 g/dL (1.3-4.6); Glucose 120 mg/dL (65-115); Magnesium 2.1 mg/dL (1.7-2.3); Osmolality Calculated 290 mOsm/kg (285-295); Potassium 3.9 mmol/L (3.5-5.1); Sodium 140 mmol/L (136-145); Total Bilirubin 0.3 mg/dL (0.15-1.2); Total Protein 6.3 g/dL (6.6-8.7)
--- NOTE | 2022-08-18 07:00 | PC.NURSE ---
Bedside report completed at this time by this nurse and Ivelisse RN. Patient is resting in bed. Patient denies any pain.
[2022-08-18 07:38] VITALS: BP 114/76; PULSE 65; RESP 18; TEMP 36.8; O2SAT 97
[2022-08-18] MEDS: pantoprazole DR 40 mg Tablet PO (08:46)
[2022-08-18 08:49] VITALS: PULSE 67; RESP 15; O2SAT 99
[2022-08-18 11:44] VITALS: BP 134/84; PULSE 64; RESP 18; TEMP 36.7; O2SAT 96
--- NOTE | 2022-08-18 15:17 | P.DS_ITS ---
Discharge Providers Date of Admission: 08/17/22 19:03 Date of Discharge: August 18, 2022 Attending Provider at Admission: Ailyn Hernandez MD Attending Provider at Discharge: Ailyn Hernandez MD Primary Care Provider: Nikolai Logan DO Diagnoses at Discharge Discharge Diagnosis (1) Syncope: Status: Acute Reason for Visit Reason for Visit: passed out/hit head Hospital Course Hospital Course Mary Jimenez is a 22 year old female with past medical history of asthma who is undergoing outpatient evaluation currently for palpitations with cardiology.? She has had a Holter monitor placed which in the past that showed sinus tachycardia and no other arrhythmias.? She has been dealing with syncopal episodes on and off for about 3 weeks now. today she was getting out of her car when she started to feel dizzy and this was followed by a syncopal episode wherein she was unconscious for about 1 minute.? She was admitted to the hospital for evaluation of recurrent syncope. She was monitored on telemetry overnight, no arrhythmias were recorded on telemetry. She did have episodes of sinus tachycardia with heart rate going up to 120 to 130 bpm, however it did not correlate with her symptoms of dizziness or presyncope. Patient did report episodes of dizziness when attempting to sit up in bed to eat and when attempting to go to the bathroom, however no telemetry correlate was found. She will continue to have her event monitor in place she had any other events occur over the next few days. Echocardiogram was completed in the hospital, no concerns for hypertrophic obstructive cardiomyopathy or valvular disease. D-dimer was negative, low concern for PE, patient was saturating well on room air, did not have any dyspnea. CT of her head was negative for any acute intracranial hemorrhage or mass effect. Recently check TSH as outpatient was normal at 2.85. This was not repeated during the course of admission. Her blood pressure remained well controlled during the course of admission. No episodic hypertension was noted. Her episodes of tachycardia do not correlate with albuterol use as she did not receive any nebulization here but still had some sinus tachycardia. She is being discharged today in stable condition to follow-up with her primary care provider. No obvious cause of syncope was found. Carotid Doppler was not obtained as given her age it is unlikely that patient has significant atherosclerotic disease involving the carotids. Additionally discussed with her that should her episodes continue and spite of normal event monitoring, consideration may be given to evaluation by neurology. Urine drug screen was negative. Serum beta-hCG was negative. Orthostatic vital signs were additionally normal Physical Exam Narrative: General: No acute distress, AO x3 HEENT: PERRLA, pupils bilaterally equal and reactive, pallors not present Chest: Normal vesicular breath sounds, no added sounds, equal good air entry bilaterally CVS: S1-S2 regular, no murmurs, no tachycardia, no gallops, no rubs Abdomen: Soft, nontender, no organomegaly, bowel sounds present Neuro: No focal deficits, no facial deformity, AO x3, power 5/5 in all limbs Discharge Data Studies Completed and Pending Completed Studies During Hospitalization Category Date Time Status CT head wo con* [id number] Stat Cat Scan 08/17/22 14:56 Completed XR ankle RT 2V [id number] Stat Exams 08/17/22 15:07 Completed CV. echo complete* [id number] Stat Ultrasound 08/17/22 17:34 Completed Radiology Impressions Head CT 08/17/22 14:56 IMPRESSION: 1. No evidence of intracranial hemorrhage or mass effect. 2. No acute intracranial findings. Ankle X-Ray 08/17/22 15:07 IMPRESSION: 1. No acute ankle fracture or dislocation. Laboratory Results WBC 7.0 10^3/uL (4.0-10.0) 08/17/22 15:40 RBC 4.55 10^6/uL (4.1-5.3) 08/17/22 15:40 Hgb 12.2 g/dL (11.5-15.3) 08/17/22 15:40 Hct 39.2 % (37.0-47.0) 08/17/22 15:40 MCV 86.2 fl (81-99) 08/17/22 15:40 MCH 26.8 pg (28.0-34.0) L 08/17/22 15:40 MCHC 31.1 g/dL (30.0-36.0) 08/17/22 15:40 RDW 14.3 % (12.1-15.1) 08/17/22 15:40 Plt Count 360 10^3/cmm (130-400) 08/17/22 15:40 MPV 8.9 fL (7.4-10.4) 08/17/22 15:40 Neut % (Auto) 50.1 % 08/17/22 15:40 Lymph % (Auto) 41.9 % 08/17/22 15:40 [place] % (Auto) 5.8 % 08/17/22 15:40 Eos % (Auto) 1.8 % 08/17/22 15:40 Baso % (Auto) 0.3 % 08/17/22 15:40 Neut # (Auto) 3.52 10^3/uL (1.8-7.7) 08/17/22 15:40 Lymph # (Auto) 3.0 10^3/uL (0.8-4.8) 08/17/22 15:40 [place] # (Auto) 0.4 10^3/uL (0.2-0.9) 08/17/22 15:40 Eos # (Auto) 0.1 10^3/uL (0.0-0.8) 08/17/22 15:40 Baso # (Auto) 0.0 10^3/uL (0.0-0.1) 08/17/22 15:40 Nucleated RBC % (auto) 0 % 08/17/22 15:40 Nucleated RBCs # 0.0 /100WBC 08/17/22 15:40 D-Dimer 0.29 ug/mIFEU (0-0.59) 08/17/22 15:40 Sodium 140 mmol/L (136-145) 08/18/22 04:58 Potassium 3.9 mmol/L (3.5-5.1) 08/18/22 04:58 Chloride 106 mmol/L (98-107) 08/18/22 04:58 Carbon Dioxide 24 mmol/L (22-29) 08/18/22 04:58 Anion Gap 13.9 (5-19) 08/18/22 04:58 BUN 9 mg/dL (6-20) 08/18/22 04:58 Creatinine 0.6 mg/dL (0.5-0.9) 08/18/22 04:58 GFR Calculation 125.0 mL/min (90-130) 08/18/22 04:58 Glucose 120 mg/dL (65-115) H 08/18/22 04:58 Calculated Osmolality 290 mOsm/kg (285-295) 08/18/22 04:58 Calcium 9.1 mg/dL (8.5-10.5) 08/18/22 04:58 Magnesium 2.1 mg/dL (1.7-2.3) 08/18/22 04:58 Total Bilirubin 0.3 mg/dL (0.15-1.2) 08/18/22 04:58 AST 14 U/L (0-32) 08/18/22 04:58 ALT 11 U/L (0-33) 08/18/22 04:58 Alkaline Phosphatase 74 U/L (35-105) 08/18/22 04:58 Troponin T Gen 5 ng/L 6 ng/L (0-10) 08/17/22 15:40 Total Protein 6.3 g/dL (6.6-8.7) L 08/18/22 04:58 Albumin 3.8 g/dL (3.5-5.2) 08/18/22 04:58 Globulin 2.5 g/dL (1.3-4.6) 08/18/22 04:58 HCG, Qual Negative (Negative) 08/17/22 15:40 Urine Opiates Screen Negative ng/mL (Negative) 08/17/22 17:58 Ur Barbiturates Screen Negative ng/mL (Negative) 08/17/22 17:58 Ur Phencyclidine Scrn Negative ng/mL (Negative) 08/17/22 17:58 Ur Amphetamines Screen Negative ng/mL (Negative) 08/17/22 17:58 U Benzodiazepines Scrn Negative ng/mL (Negative) 08/17/22 17:58 Urine Cocaine Screen Negative ng/mL (Negative) 08/17/22 17:58 U Marijuana (THC) Screen Negative ng/mL (Negative) 08/17/22 17:58 Vitals Last Vital Signs Temp 98.0 F 08/18/22 11:44 Pulse 64 08/18/22 11:44 Resp 18 08/18/22 11:44 BP 134/84 08/18/22 11:44 Pulse Ox 96 08/18/22 11:44 O2 Del Method 08/18/22 08:49 Discharge Plan Discharge Patient Disposition: Home Condition: Stable Prescriptions: Continued Zyrtec 10 mg capsule 10 mg PO DAILY PRN (Reason: breathing allergic) Qty: 30 0RF albuterol sulfate 90 mcg/actuation HFA aerosol inhaler 2 inh INHALATION Q4H PRN (Reason: shortness of breath or wheezing) Qty: 18 0RF Singulair 10 mg tablet 10 mg PO DAILY NuvaRing 0.12-0.015 mg/24 hr ring 1 vag ring vaginal Q21D albuterol sulfate 2.5 mg /3 mL (0.083 %) solution for nebulization 2.5 mg inhalation Q4H PRN (Reason: shortness of breath or wheezing) Qty: 180 0RF Discharge Orders: Discharge Order (Routine); Ordered 08/18/22 Ordered By: Ailyn Hernandez Referrals: Nikolai Logan DO [Primary Care Provider] - 08/26/22 9:30 am Patient Instructions: Syncope (DC), Opioid Safety Discharge Attestations Time Spent in Discharge Care*: greater than 30 min Quality Metrics Clinical Quality Measures [ No reported AMI, CVA or VTE this stay] Coding Level of Care Code Acute Code for Chg Fwd Total time (in minutes) for Discharge: 45 Diagnoses Syncope R55
== END 2022-08-18 14:30 | disposition home or self-care (01) ==
LOC: ER 18:42 → MEDSURG 19:03
PROVIDERS: Admitting Provider Student in an Organized Health Care Education/Training Program; Emergency Provider Family Medicine; PCP Family Medicine; Visit Provider Student in an Organized Health Care Education/Training Program
DX: R55 Syncope and collapse (principal); K21.9 Gastro-esophageal reflux disease without esophagitis; F41.1 Generalized anxiety disorder; E28.2 Polycystic ovarian syndrome; Z91.81 History of falling
CPT/HCPCS: 36415; 70450; 73600; 80053; 80306; 83735; 84484; 84703; 85025; 85378; 93306; 99285; G0378

== ENCOUNTER 2022-08-21 15:16 | Emergency (ER) | payer MEDICAID, SELFPAY ==
[2022-08-21 15:25] VITALS: BMI 35.2
[2022-08-21 15:29] VITALS: PULSE 79; RESP 18; TEMP 36.7; O2SAT 98
--- NOTE | 2022-08-21 16:27 | ECG_ITS ---
[facility] Test Date: 2022-08-21 Pat Name: Mary Jimenez Department: Room: Gender: Female Hacksaw Inspector: : [id number] Requested By: Kandace Gonzales Order Number: [id number] Arpita MD: Leo Rivero M.D. Measurements Intervals [place] Rate: 83 P: 68 KS: 166 QRS: 9 QRSD: 84 T: 42 QT: 331 QTc: 389 Interpretive Statements SINUS RHYTHM Compared to ECG 08/03/2022 07:12:04 No significant changes Electronically Signed On 08-21-2022 16:54:28 NETWORK PROGRAMMER by Leo Rivero M.D. [id number]
[2022-08-21 16:29] VITALS: BP 136/78; RESP 16; TEMP 36.8; O2SAT 99
--- NOTE | 2022-08-21 16:44 | ED_ITS ---
HPI - Syncope General: Chief Complaint: Syncope Stated Complaint: Syncope x2 Time Seen by Provider: 08/21/22 16:16 History of Present Illness: Ms. Jimenez is a 22-year-old lady presenting to the emergency department for recurrent syncope. She reports a few week history of 10-15 episodes. She endorses sudden onset lightheadedness and syncope. No reported seizure-like episodes. No tongue biting or loss of continence. These do not seem to be provoked by any sort of particular activity. She was admitted to our hospital on 08/17 and discharged subsequently the next day with a cost control supervisor which she has been wearing. She endorses symptoms today while driving. She felt it come on so she stopped and there is no associated trauma. Intensity when present is severe. Mild headache and fatigue afterwards. No other specific changes in health, exacerbating, or alleviating factors identified. Description of event: other Context: at rest, during exertion and other Associated symptoms: Reports no associated symptoms History: previous syncopal episode Review of Systems General: Reports: 10 or more systems reviewed and unremarkable except in HPI and below PFSH ED PFSH: Medical History Anxiety C. difficile colitis (~04/2021) GERD (gastroesophageal reflux disease) No pertinent past medical history neghx: htn,dm,thyroid,dvt/pe PCP: none Reactive airway disease Surgical History H/O esophagogastroduodenoscopy (05/15/21) History of tonsillectomy and adenoidectomy Hx of anterior cruciate ligament tear reconstruction Status post colonoscopy (05/15/21) Family History Mother Diabetes Grandmother Diabetes Maternal Heart disease Maternal Hypercholesteremia Maternal Hypertension Maternal Thyroid disease Maternal Grandfather Diabetes Maternal Thyroid disease Maternal Denies family history of Colon cancer Ovarian cancer Hyperlipidemia Breast cancer Uterine cancer Stroke Social History Smoking and tobacco status: never smoked Female Reproductive History: Date of last menstrual period: 08/12/22 Spontaneous abortions: No Physical Exam Const: COMMON NORMALS: patient oriented x3 and alert GENERAL APPEARANCE: cooperative and well developed HENMT: COMMON NORMALS: normocephalic and atraumatic HEAD & SCALP: normocephalic and atraumatic Eye: COMMON NORMALS: conjunctivae normal CONJUNCTIVA: Yes conjunctivae normal SCLERA: sclerae normal Neck/C-Spine: COMMON NORMALS: supple GENERAL: Yes trachea midline Resp: COMMON NORMALS: clear to auscultation bilaterally EFFORT & INSPECTION: Yes able to speak in complete sentences AUSCULTATION: clear to auscultation bilaterally Cardio: COMMON NORMALS: regular rate and regular rhythm RATE: regular rate RHYTHM: regular rhythm GI: COMMON NORMALS: Soft to palpation PALPATION: Yes Soft to palpation and No Tenderness to palpation present (GI) Extremity: GENERAL: Yes normal exam except as noted and No edema Neuro: COMMON NORMALS: patient oriented x3, CN's II-XII intact bilaterally, moves all extremities, no focal motor deficits and no sensory deficits noted SENSORIUM/ORIENTATION: Yes alert and No Orientation impaired Psych: COMMON NORMALS: mental status grossly normal and Normal thought process present THOUGHT PROCESS: Normal thought process present Course Vital Signs: Vital signs: Vital Signs Temperature 98.2 F 08/21/22 16:29 Pulse Rate 78 08/21/22 18:13 Respiratory Rate 16 08/21/22 18:13 Blood Pressure 131/94 08/21/22 18:13 Pulse Oximetry 91 08/21/22 18:13 Oxygen Delivery Me thod 08/21/22 18:13 MDM - Syncope Medical Decision Making 22-year-old lady presenting with recurrent syncopal episodes preceded by a faint feeling. Exam as above. EKG shows sinus rhythm, normal axis and intervals, no STEMI. Similar to prior. Labs with no significant abnormality to explain the event. Prior imaging including recent imaging reviewed with head CT, chest x-ray, echocardiogram. No arrhythmia identified correlating with patient's events on Holter monitor. On reassessment patient feels improved. Given extensive recent inpatient evaluation I do not feel that repeat hospitalization is required. Most likely source of patient's symptoms is unclear, these appear to be noncardiogenic episodes of syncope and presyncope. The results of ED evaluation were discussed with the patient including prescriptions and/or symptomatic cares (if applicable) including appropriate and responsible use, followup plan, and return precautions. The patient verbalized understanding and felt safe for discharge. Medical Records I reviewed the patient's medical records. Lab Data I reviewed the patient's lab results. 08/21/22 17:12 08/21/22 17:12 Laboratory Results WBC 9.7 10^3/uL (4.0-10.0) 08/21/22 17:12 RBC 4.68 10^6/uL (4.1-5.3) 08/21/22 17:12 Hgb 12.5 g/dL (11.5-15.3) 08/21/22 17:12 Hct 40.8 % (37.0-47.0) 08/21/22 17:12 MCV 87.2 fl (81-99) 08/21/22 17:12 MCH 26.7 pg (28.0-34.0) L 08/21/22 17:12 MCHC 30.6 g/dL (30.0-36.0) 08/21/22 17:12 RDW 14.2 % (12.1-15.1) 08/21/22 17:12 Plt Count 372 10^3/cmm (130-400) 08/21/22 17:12 MPV 9.0 fL (7.4-10.4) 08/21/22 17:12 Neut % (Auto) 60.7 % 08/21/22 17:12 Lymph % (Auto) 31.7 % 08/21/22 17:12 [place] % (Auto) 5.5 % 08/21/22 17:12 Eos % (Auto) 1.4 % 08/21/22 17:12 Baso % (Auto) 0.5 % 08/21/22 17:12 Neut # (Auto) 5.90 10^3/uL (1.8-7.7) 08/21/22 17:12 Lymph # (Auto) 3.1 10^3/uL (0.8-4.8) 08/21/22 17:12 [place] # (Auto) 0.5 10^3/uL (0.2-0.9) 08/21/22 17:12 Eos # (Auto) 0.1 10^3/uL (0.0-0.8) 08/21/22 17:12 Baso # (Auto) 0.1 10^3/uL (0.0-0.1) 08/21/22 17:12 Nucleated RBC % (auto) 0 % 08/21/22 17:12 Nucleated RBCs # 0.0 /100WBC 08/21/22 17:12 Sodium 139 mmol/L (136-145) 08/21/22 17:12 Potassium 4.2 mmol/L (3.5-5.1) 08/21/22 17:12 Chloride 103 mmol/L (98-107) 08/21/22 17:12 Carbon Dioxide 26 mmol/L (22-29) 08/21/22 17:12 Anion Gap 14.2 (5-19) 08/21/22 17:12 BUN 7 mg/dL (6-20) 08/21/22 17:12 Creatinine 0.6 mg/dL (0.5-0.9) 08/21/22 17:12 GFR Calculation 125.0 mL/min (90-130) 08/21/22 17:12 Glucose 95 mg/dL (65-115) 08/21/22 17:12 Calculated Osmolality 286 mOsm/kg (285-295) 08/21/22 17:12 Calcium 9.7 mg/dL (8.5-10.5) 08/21/22 17:12 Magnesium 2.1 mg/dL (1.7-2.3) 08/21/22 17:12 Total Bilirubin 0.3 mg/dL (0.15-1.2) 08/21/22 17:12 AST 16 U/L (0-32) 08/21/22 17:12 ALT 14 U/L (0-33) 08/21/22 17:12 Alkaline Phosphatase 89 U/L (35-105) 08/21/22 17:12 Troponin T Baseline 6 ng/L (0-10) 08/21/22 17:12 Total Protein 7.3 g/dL (6.6-8.7) 08/21/22 17:12 Albumin 4.6 g/dL (3.5-5.2) 08/21/22 17:12 Globulin 2.7 g/dL (1.3-4.6) 08/21/22 17:12 Discharge Plan Discharge Patient Disposition: Home Clinical Impression: Recurrent syncope Condition: Stable Prescriptions: No Action NuvaRing 0.12-0.015 mg/24 hr ring 1 vag ring vaginal Q21D Qty: 3 3RF Rx Instructions: leave in for 3 weeks; remove for 7 and replace new ring Zyrtec 10 mg capsule 10 mg PO DAILY PRN (Reason: breathing allergic) Qty: 30 0RF albuterol sulfate 90 mcg/actuation HFA aerosol inhaler 2 inh INHALATION Q4H PRN (Reason: shortness of breath or wheezing) Qty: 18 0RF Singulair 10 mg tablet 10 mg PO DAILY albuterol sulfate 2.5 mg /3 mL (0.083 %) solution for nebulization 2.5 mg inhalation Q4H PRN (Reason: shortness of breath or wheezing) Qty: 180 0RF Discharge Orders: Discharge ED (Routine); Ordered 08/21/22 Ordered By: Vinayak Jefferosn Referrals: Nikolai Logan, [Primary Care Provider] - Discharge Diet: Usual diet Discharge Activity: Limit activity as instructed Patient Instructions: Syncope (ED) Activity Restrictions/Additional Instructions: Thank you for visiting the emergency department. You were seen and evaluated for recurrent episodes of syncope. The exact cause your symptoms is unclear. Given ED evaluation I do not feel that further inpatient management is needed at this time. I will message case management for follow-up and further testing. Please follow all precautions regarding activities as discussed. Return to the emergency department for recurrent symptoms, any new neurologic symptoms, or anything else that you are concerned about and feel needs emergency department evaluation. Coding Level of Care Code ED Cardiopulmonary Technician And Eeg Tech for Yesica Manzo
[2022-08-21 17:26] LABS: Basophils # 0.1 10^3/uL (0.0-0.1); Basophils % 0.5 %; Eosinophils # 0.1 10^3/uL (0.0-0.8); Eosinophils % 1.4 %; Hematocrit 40.8 % (37.0-47.0); Hemoglobin 12.5 g/dL (11.5-15.3); Lymphocytes # 3.1 10^3/uL (0.8-4.8); Lymphocytes % 31.7 %; Mean Corpuscular HGB Conc 30.6 g/dL (30.0-36.0); Mean Corpuscular Hemoglobin 26.7 pg (28.0-34.0); Mean Corpuscular Volume 87.2 fl (81-99); Monocytes # 0.5 10^3/uL (0.2-0.9); Monocytes % 5.5 %; Neutrophils % 60.7 %; Nucleated Red Blood Cells % 0 %; Platelet Count 372 10^3/cmm (130-400); Red Blood Count 4.68 10^6/uL (4.1-5.3); Red Cell Distribution Width 14.2 % (12.1-15.1); White Blood Count 9.7 10^3/uL (4.0-10.0)
[2022-08-21 17:41] LABS: Alanine Aminotransferase 14 U/L (0-33); Albumin Level 4.6 g/dL (3.5-5.2); Alkaline Phosphatase 89 U/L (35-105); Anion Gap 14.2 (5-19); Aspartate Amino Transferase 16 U/L (0-32); Blood Urea Nitrogen 7 mg/dL (6-20); Calcium 9.7 mg/dL (8.5-10.5); Carbon Dioxide 26 mmol/L (22-29); Chloride 103 mmol/L (98-107); Globulin 2.7 g/dL (1.3-4.6); Glucose 95 mg/dL (65-115); Osmolality Calculated 286 mOsm/kg (285-295); Potassium 4.2 mmol/L (3.5-5.1); Sodium 139 mmol/L (136-145); Total Bilirubin 0.3 mg/dL (0.15-1.2); Total Protein 7.3 g/dL (6.6-8.7)
[2022-08-21 18:11] LABS: Troponin(5th) Baseline 6 ng/L (0-10)
[2022-08-21 18:12] LABS: Magnesium 2.1 mg/dL (1.7-2.3)
[2022-08-21 18:13] VITALS: BP 131/94; PULSE 78; RESP 16; O2SAT 91
--- NOTE | 2022-08-21 18:37 | PC.NURSE ---
Orthostatic Vitals: Laying- HR:76 O2:98% BP:136/72 Sitting- HR:77 O2:100% BP:137/77 Standing- HR:78 O2:99% BP:126/65
--- NOTE | 2022-08-24 14:23 | DCPLANNER ---
Addendum entered by Vania Guzman 12/13/22 08:11: Patient had an EEG scheduled - patient did attend appointment Patient had a follow up appointment scheduled with neurology - patient did attend appointment. Addendum entered by Vania Guzman 09/07/22 08:13: Patient has an outpatient EEG scheduled for Wednesday, September 28, 2022 at 10:30 at neurology. clinic will call patient with appointment information. Addendum entered by Vania Guzman 09/04/22 07:40: Patient had a follow up appointment scheduled for Sunday, December 11, 2022 at 12:[address] Gonzalez at neurology. Clinic will call patient with appointment information. Original Note: manager port had message to schedule an outpatient EEG for patient. manager port faxed signed order to neurology, who will call patient with appointment information. manager port also had message to schedule a follow up appointment for patient with neurology. manager port sent patients information to the front office staff at neurology. Patients information will be printed and reviewed. Clinic will call patient with appointment information.
== END 2022-08-21 19:24 | disposition home or self-care (01) ==
PROVIDERS: Physician Assistant; Emergency Provider Emergency Medicine; PCP Family Medicine
DX: R55 Syncope and collapse (principal)
CPT/HCPCS: 36415; 80053; 83735; 84484; 85025; 93005; 99285

== ENCOUNTER → 2022-09-03 12:33 | Outpatient (BNVA) | payer MEDICAID, SELFPAY | PROVIDERS: PCP Family Medicine; Visit Provider Nurse Practitioner Family | DX: S69.91XA Unspecified injury of right wrist, hand and finger(s), initial encounter (principal); X58.XXXA Exposure to other specified factors, initial encounter | CPT/HCPCS: 73110 ==

== ENCOUNTER → 2022-12-15 14:25 | Outpatient (BNVA) | payer MEDICAID, SELFPAY | PROVIDERS: PCP Family Medicine; Visit Provider Family Medicine | DX: L81.9 Disorder of pigmentation, unspecified (principal) | CPT/HCPCS: 88304 ==

== ENCOUNTER 2023-01-13 15:56 | Outpatient (CLI) | payer MEDICAID, SELFPAY ==
--- NOTE | 2023-01-13 16:04 | XRR_ITS ---
PROCEDURE INFORMATION: Exam: XR Right Knee Exam date and time: 01/13/2023 4:09 PM Age: 22 years old Clinical indication: Injury or trauma; Other: Not specified; Sprain or strain; Patella or knee; Right; Injury date: 1 week ago; Additional info: Right knee injury TECHNIQUE: Imaging protocol: Radiologic exam of the right knee. Views: 3 views. COMPARISON: CR XR ankle RT 2V [id number] 08/17/2022 3:15 PM FINDINGS: Bones/joints: Normal. Soft tissues: Normal. XR/XR knee RT 3V* [id number] IMPRESSION: No acute findings.
== END 2023-01-13 15:57 | disposition home or self-care (01) ==
LOC: RAD 15:59
PROVIDERS: PCP Family Medicine; Visit Provider Emergency Medicine
DX: S89.91XA Unspecified injury of right lower leg, initial encounter (principal); X58.XXXA Exposure to other specified factors, initial encounter
CPT/HCPCS: 73562

== ENCOUNTER → 2023-03-26 10:55 | Outpatient (BNVA) | payer MEDICAID, SELFPAY | PROVIDERS: PCP Family Medicine; Visit Provider Nurse Practitioner Family | DX: R05.8 Other specified cough (principal); J06.9 Acute upper respiratory infection, unspecified | CPT/HCPCS: 87400; 87426 ==

== ENCOUNTER 2023-04-20 15:06 | Emergency (ER) | payer MEDICAID, SELFPAY ==
[2023-04-20 15:17] VITALS: BP 117/79; PULSE 77; RESP 14; TEMP 36.7; O2SAT 98; BMI 37.9
[2023-04-20 15:21] VITALS: BP 117/100; PULSE 94; O2SAT 100
[2023-04-20 15:37] LABS: Basophils % 0.3 %; Eosinophils # 0.2 10^3/uL (0.0-0.8); Hematocrit 41.3 % (36-47); Lymphocytes # 4.4 10^3/uL (0.8-4.8); Lymphocytes % 49.7 %; Mean Corpuscular HGB Conc 32.4 g/dL (30-55); Mean Corpuscular Hemoglobin 28.4 pg (27-33); Mean Corpuscular Volume 87.5 fl (85-98); Mean Platelet Volume 8.9 fL (7.4-10.4); Monocytes # 0.5 10^3/uL (0.2-0.9); Monocytes % 6.1 %; Neutrophils # 3.66 10^3/uL (1.8-7.7); Neutrophils % 41.6 %; Nucleated Red Blood Cells % 0 %; Platelet Count 348 10^3/cmm (157-399); Red Blood Count 4.72 10^6/uL (3.85-5.65); Red Cell Distribution Width 12.7 % (12.1-15.1); White Blood Count 8.82 10^3/uL (3.29-11.43)
[2023-04-20 15:58] LABS: HCG, Serum Qual Negative (Negative)
[2023-04-20 16:03] LABS: Alanine Aminotransferase 11 U/L (0-33); Albumin Level 4.4 g/dL (3.5-5.2); Alkaline Phosphatase 77 U/L (35-105); Anion Gap 13.6 (5-19); Aspartate Amino Transferase 13 U/L (0-32); Blood Urea Nitrogen 8 mg/dL (6-20); Calcium 9.5 mg/dL (8.5-10.5); Carbon Dioxide 22 mmol/L (22-29); Chloride 107 mmol/L (98-107); Glomerular Filtration Rate 154.3 mL/min (90-130); Glucose 102 mg/dL (65-115); Lipase 49 U/L (13-60); Osmolality Calculated 287 mOsm/kg (285-295); Potassium 3.6 mmol/L (3.5-5.1); Sodium 139 mmol/L (136-145); Total Bilirubin 0.2 mg/dL (0.15-1.2); Total Protein 7.4 g/dL (6.6-8.7)
--- NOTE | 2023-04-20 16:14 | CTR_ITS ---
PROCEDURE INFORMATION: Exam: CT Abdomen And Pelvis With Contrast Exam date and time: 04/20/2023 4:38 PM Age: 22 years old Clinical indication: Abdominal pain; Localized; Right; Additional info: Abd pain TECHNIQUE: Imaging protocol: Computed tomography of the abdomen and pelvis with contrast. Radiation optimization: All CT scans at this facility use at least one of these dose optimization techniques: automated exposure control; mA and/or kV adjustment per patient size (includes targeted exams where dose is matched to clinical indication); or iterative reconstruction. Contrast material: OMNI 350; Contrast volume: 100 ml; Contrast route: INTRAVENOUS (IV); REPORTING DATA: Count of CT and Cardiac NM exams in prior 12 months: This patient has received 2 known CTs and 0 known cardiac nuclear medicine studies in the 12 months prior to the current study. COMPARISON: CR XR hip BI m 5V wo/w pel* [id number] 12/24/2018 6:38 PM RADIATION DOSE METRICS: Total DLP (mGy-cm): 911 FINDINGS: Lungs: 3 mm left pulmonary nodule, almost certainly benign in this age group. Liver: Normal. No mass. Gallbladder and bile ducts: Normal. No calcified stones. No ductal dilation. Pancreas: Normal. No ductal dilation. Spleen: Normal. No splenomegaly. Adrenal glands: Normal. No mass. Kidneys and ureters: Round hypodense lesion in the left kidney is too small to characterize but is most likely a cyst. No follow-up imaging is recommended. Excreted contrast in the bilateral renal collecting system. This could obscure small calculi. No hydronephrosis. Stomach and bowel: Unremarkable. No obstruction. No mucosal thickening. Appendix: The appendix is visualized and is normal. Intraperitoneal space: Unremarkable. No free air. No significant fluid collection. Vasculature: Unremarkable. No abdominal aortic aneurysm. Lymph nodes: Unremarkable. No enlarged lymph nodes. Urinary bladder: Unremarkable as visualized. Reproductive: Unremarkable as visualized. Bones/joints: Unremarkable. No acute fracture. Soft tissues: Unremarkable. CT/CT abdomen pelvis w con* [id number] IMPRESSION: 1. No acute findings. COMMENTS: Consistent with the [employer]'s Incidental Findings Committee white paper (J Am Dulce Maria Radiol 2018): Any incidental renal lesion less than 1 cm or classified as too small to characterize, or any incidental cystic renal lesion characterized as simple-appearing, is likely benign. No follow-up imaging is recommended for these lesions per consensus recommendations based on imaging criteria.
--- NOTE | 2023-04-20 16:22 | ED_ITS ---
HPI - Extremity Problem General: Chief complaint: Extremity Injury, Lower Stated complaint: abd pain right side Time Seen by Provider: 04/20/23 16:03 Source: patient Mode of arrival: ambulatory Limitations: no limitations History of Present Illness: 22-year-old female states that she has been having right lower quadrant abdominal pain started this morning at 9 AM states is a sharp pain that started suddenly states is worse when she walks improved with rest. She does have a history of PCOS she denies any vaginal bleeding or discharge. Associated symptoms: Deny chest pain, fever(s) or rash Review of Systems Const: Denies: fever(s), chills, body aches or change in appetite Eyes: Denies: blurry vision or eye discomfort ENMT: Denies: throat pain or dental pain Card: Denies: chest pain Resp: Denies: dyspnea GI: Reports: abdominal pain; Denies: nausea, vomiting or diarrhea : Denies: dysuria Musc: Denies: neck pain or back pain Skin/Breast: Denies: rash Neuro: Denies: headache(s) PFSH ED PFSH: Medical History Anxiety C. difficile colitis (~04/2021) GERD (gastroesophageal reflux disease) No pertinent past medical history neghx: htn,dm,thyroid,dvt/pe PCP: none Reactive airway disease Surgical History H/O esophagogastroduodenoscopy (05/15/21) History of tonsillectomy and adenoidectomy Hx of anterior cruciate ligament tear reconstruction Status post colonoscopy (05/15/21) Family History Mother Diabetes Grandmother Diabetes Maternal Heart disease Maternal Hypercholesteremia Maternal Hypertension Maternal Thyroid disease Maternal Grandfather Diabetes Maternal Thyroid disease Maternal Denies family history of Colon cancer Ovarian cancer Hyperlipidemia Breast cancer Uterine cancer Stroke Social History Smoking and tobacco/nicotine status: never used tobacco/nicotine Female Reproductive History: Spontaneous abortions: No Physical Exam Const: COMMON NORMALS: no acute distress, patient oriented x3 and healthy appearing HENMT: COMMON NORMALS: normocephalic and atraumatic HEAD & SCALP: normocephalic and atraumatic Neck/C-Spine: COMMON NORMALS: full ROM and supple Chest: COMMONS NORMALS: normal inspection of the chest Resp: COMMON NORMALS: normal respiratory effort Cardio: COMMON NORMALS: regular rate, regular rhythm and No murmurs present (Cardio) RATE: regular rate RHYTHM: regular rhythm GI: COMMON NORMALS: Normal to inspection, nondistended, normoactive bowel sounds present, Soft to palpation and no masses PALPATION: Yes Soft to palpation and Yes Tenderness to palpation present (GI) Details: RLQ Extremity: COMMON NORMALS: normal to inspection and full ROM Neuro: COMMON NORMALS: patient oriented x3, moves all extremities and no focal motor deficits Psych: COMMON NORMALS: mental status grossly normal, Normal thought process present and cooperative THOUGHT PROCESS: Normal thought process present Skin: COMMON NORMALS: no rashes or lesions noted and no wounds GENERAL SKIN EXAM: no rashes or lesions noted Course Vital Signs: Vital signs: Vital Signs Temperature 98.1 F 04/20/23 15:17 Pulse Rate 76 04/20/23 17:39 Respiratory Rate 18 04/20/23 16:24 Blood Pressure 159/88 04/20/23 17:39 Pulse Oximetry 99 04/20/23 17:39 Oxygen Delivery Me thod Room Air 04/20/23 15:17 MDM - Extremity (Nontraumatic) Medical Decision Making Patient presents with abdominal pain CT scan blood work here is all normal her exam at discharge is benign she has no signs of ovarian torsion she is stable for discharge we will prescribe her Naprosyn she is to follow-up with PCP and return if worsening. Medical Records I reviewed the patient's medical records. Lab Data I reviewed the patient's lab results. 04/20/23 15:28 04/20/23 15:28 Radiology Impressions Abdomen/Pelvis CT 04/20/23 16:14 IMPRESSION: 1. No acute findings. COMMENTS: Consistent with the [employer]'s Incidental Findings Committee white paper (J Am Dulce Maria Radiol 2018): Any incidental renal lesion less than 1 cm or classified as too small to characterize, or any incidental cystic renal lesion characterized as simple-appearing, is likely benign. No follow-up imaging is recommended for these lesions per consensus recommendations based on imaging criteria. Laboratory Results WBC 8.82 10^3/uL (3.29-11.43) 04/20/23 15: RBC 4.72 10^6/uL (3.85-5.65) 04/20/23 15: Hgb 13.40 g/dL (11.27-16.99) 04/20/23 15: Hct 41.3 % (36-47) 04/20/23 15: MCV 87.5 fl (85-98) 04/20/23 15: MCH 28.4 pg (27-33) 04/20/23 15: MCHC 32.4 g/dL (30-55) 04/20/23: RDW 12.7 % (12.1-15.1) 04/20/23: Plt Count 348 10^3/cmm (157-399) 04/20/23 15: MPV 8.9 fL (7.4-10.4) 04/20/23: Neut % (Auto) 41.6 % 04/20/23: Lymph % (Auto) 49.7 % 04/20/23: Gonzales % (Auto) 6.1 % 04/20/23: Eos % (Auto) 2.0 % 04/20/23: Baso % (Auto) 0.3 % 04/20/23: Neut # (Auto) 3.66 10^3/uL (1.8-7.7) 04/20/23: Lymph # (Auto) 4.4 10^3/uL (0.8-4.8) 04/20/23: Gonzales # (Auto) 0.5 10^3/uL (0.2-0.9) 04/20/23: Eos # (Auto) 0.2 10^3/uL (0.0-0.8) 04/20/23: Baso # (Auto) 0.0 10^3/uL (0.0-0.1) 04/20/23: Nucleated RBC % (auto) 0 % 04/20/23: Nucleated RBCs # 0.0 /100WBC 04/20/23 15: Sodium 139 mmol/L (136-145) 04/20/23 15:28 Potassium 3.6 mmol/L (3.5-5.1) 04/20/23 15:28 Chloride 107 mmol/L (98-107) 04/20/23 15:28 Carbon Dioxide 22 mmol/L (22-29) 04/20/23 15:28 Anion Gap 13.6 (5-19) 04/20/23 15:28 BUN 8 mg/dL (6-20) 04/20/23 15:28 Creatinine 0.5 mg/dL (0.5-0.9) 04/20/23 15:28 GFR Calculation 154.3 mL/min (90-130) H 04/20/23 15:28 Glucose 102 mg/dL (65-115) 04/20/23 15:28 Calculated Osmolality 287 mOsm/kg (285-295) 04/20/23 15:28 Calcium 9.5 mg/dL (8.5-10.5) 04/20/23 15:28 Total Bilirubin 0.2 mg/dL (0.15-1.2) 04/20/23 15:28 AST 13 U/L (0-32) 04/20/23 15:28 ALT 11 U/L (0-33) 04/20/23 15:28 Alkaline Phosphatase 77 U/L (35-105) 04/20/23 15:28 Total Protein 7.4 g/dL (6.6-8.7) 04/20/23 15:28 Albumin 4.4 g/dL (3.5-5.2) 04/20/23 15:28 Globulin 3.0 g/dL (1.3-4.6) 04/20/23 15:28 Lipase 49 U/L (13-60) 04/20/23 15:28 HCG, Qual Negative (Negative) 04/20/23 15:28 Urine Color Yellow (Yellow) 04/20/23 16:14 Urine Appearance Sl hazy (CLEAR) A 04/20/23 16:14 Urine pH 5 (5-7) 04/20/23 16:14 Ur Specific [place] 1.020 (1.005-1.030) 04/20/23 16:14 Urine Protein Neg (Negative) 04/20/23 16:14 Urine Glucose (UA) Norm (Normal) 04/20/23 16:14 Urine Ketones 1+ (Negative) H 04/20/23 16:14 Urine Blood Neg (Negative) 04/20/23 16:14 Urine Nitrate Negative (Negative) 04/20/23 16:14 Urine Bilirubin Neg (Negative) 04/20/23 16:14 Urine Urobilinogen Norm mg/dL (Negative) 04/20/23 16:14 Ur Leukocyte Esterase Trace (Negative) H 04/20/23 16:14 Urine RBC 0-4 /hpf (0-2) H 04/20/23 16:14 Urine WBC 5-10 /hpf (0-5) H 04/20/23 16:14 Ur Squamous Epith Cells 5-10 /hpf (0-5) H 04/20/23 16:14 Amorphous Sediment Not Reportable 04/20/23 16:14 Urine Bacteria Trace /hpf (NONE) 04/20/23 16:14 Urine Mucus 1+ /hpf 04/20/23 16:14 All radiology interpretation(s) finalized by discharge Discharge Plan Discharge Patient Disposition: Home Clinical Impression: Abdominal pain Condition: Stable Prescriptions: New Naprosyn 500 mg tablet 500 mg PO BID PRN (Reason: pain) Qty: 20 0RF No Action NuvaRing 0.12-0.015 mg/24 hr ring 1 vag ring vaginal Q21D Qty: 3 3RF Rx Instructions: leave in for 3 weeks; remove for 7 and replace new ring Zyrtec 10 mg capsule 10 mg PO DAILY PRN (Reason: breathing allergic) Qty: 30 0RF metoprolol tartrate 25 mg tablet 12.5 mg PO BID Qty: 90 3RF ibuprofen 600 mg tablet 600 mg PO Q8H PRN (Reason: pain) Qty: 60 0RF topiramate [Topamax] 100 mg tablet 100 mg PO DAILY Qty: 90 1RF Rx Instructions: 1/2 tab for 2 weeks then continue 1 whole tab sumatriptan succinate 25 mg tablet See Rx Instructions PO .COMPLEX Rx Instructions: take 1 tab at onset of headache; if no relief may repeat 1 tab after at least 2 hrs; max = 4 tabs/24 hr PO omeprazole 40 mg capsule,delayed release(DR/EC) 40 mg PO DAILY 30 Days Qty: 30 0RF amitriptyline 50 mg tablet See Rx Instructions .ROUTE .COMPLEX Qty: 30 0RF Dose Instruction: TAKE 1 TABLET BY MOUTH ONCE DAILY AT BEDTIME Rx Instructions: TAKE 1 TABLET BY MOUTH ONCE DAILY AT BEDTIME Discharge Orders: Discharge ED (Routine); Ordered 04/20/23 Ordered By: Araceli Toney Referrals: Nikolai Logan DO [Primary Care Provider] - 1-3 days Discharge Diet: Advance as tolerated Discharge Activity: Resume usual activity Patient Instructions: Abdominal Pain (ED) Stand Alone Forms: Work/School Release Coding Level of Care Code ED Applications Packager for Yesica Manzo
[2023-04-20 16:24] VITALS: RESP 18; O2SAT 100
[2023-04-20] MEDS: ondansetron 2 mg/ML SDV 2 mL 4 MG IVP (16:24)
[2023-04-20] MEDS: morphine 4 mg/mL SDV 1 mL IVP (16:24)
[2023-04-20 16:38] LABS: Add Urine Microscopic? YES; Bilirubin Urine Neg (Negative); Blood Urine Neg (Negative); Glucose Urine UA Norm (Normal); Ketones Urine 1+ (Negative); Leukocyte Esterase Urine Trace (Negative); Nitrate Urine Negative (Negative); Protein Urine Neg (Negative); Urine Appearance SL Hazy (CLEAR); Urine Color Yellow (Yellow); Urobilinogen Urine Norm (Negative); pH Urine 5 (5-7)
[2023-04-20 16:42] LABS: Add Urine Culture? No; Bacteria Urine TRACE /hpf; Mucus Urine 1+ /hpf; RBC Urine 0-4 /hpf (0-2)
[2023-04-20] MEDS: iohexol 350 mg/mL 500 mL Btl (per mL) IV (16:54)
[2023-04-20 17:39] VITALS: BP 159/88; PULSE 76; O2SAT 99
== END 2023-04-20 17:40 | disposition home or self-care (01) ==
PROVIDERS: Emergency Provider Emergency Medicine; PCP Family Medicine
DX: R10.31 Right lower quadrant pain (principal)
CPT/HCPCS: 36415; 74177; 80053; 81001; 83690; 84703; 85025; 96374; 96375; 99285; J2270; J2405; Q9967

== ENCOUNTER → 2023-04-27 12:46 | Outpatient (BNVA) | payer MEDICAID, SELFPAY | PROVIDERS: PCP Family Medicine; Visit Provider Internal Medicine | DX: R00.2 Palpitations (principal); R55 Syncope and collapse | CPT/HCPCS: 99213 ==

== ENCOUNTER → 2023-07-05 13:58 | Outpatient (BNVA) | payer MEDICAID, SELFPAY | PROVIDERS: PCP Family Medicine; Visit Provider Nurse Practitioner Family | DX: J02.9 Acute pharyngitis, unspecified (principal); J06.9 Acute upper respiratory infection, unspecified | CPT/HCPCS: 87880 ==

== ENCOUNTER 2023-11-01 08:12 | Emergency (ER) | payer OTHER, SELFPAY ==
[2023-11-01 08:19] VITALS: BP 141/51; PULSE 72; RESP 16; TEMP 36.7; O2SAT 99; BMI 38.2
--- NOTE | 2023-11-01 08:21 | XRR_ITS ---
PROCEDURE INFORMATION: Exam: XR Left Ankle Exam date and time: 11/01/2023 8:29 AM Age: 23 years old Clinical indication: Injury or trauma; Fall; Sprain or strain; Ankle; Left TECHNIQUE: Imaging protocol: Radiologic exam of the left ankle. Views: 3 or more views. COMPARISON: MR knee LT wo con* [id number] 11/21/2021 12:09 PM FINDINGS: Bones/joints: Normal. Soft tissues: Normal. XR/XR ankle LT min 3V* [id number] IMPRESSION: No acute findings.
--- NOTE | 2023-11-01 08:21 | XRR_ITS ---
PROCEDURE INFORMATION: Exam: XR Left Knee Exam date and time: 11/01/2023 8:31 AM Age: 23 years old Clinical indication: Injury or trauma; Fall; Blunt trauma; Prior surgery; Surgery date: 6+ months; Surgery type: Left knee TECHNIQUE: Imaging protocol: Radiologic exam of the left knee. Views: 3 views. COMPARISON: MR knee LT wo con* [id number] 11/21/2021 12:09 PM FINDINGS: Bones/joints: Small left patellar cyst. Otherwise, unremarkable. Soft tissues: Normal. XR/XR knee LT 3V* [id number] IMPRESSION: No acute findings.
--- NOTE | 2023-11-01 08:32 | ED_ITS ---
HPI - Extremity Problem General: Chief complaint: Extremity Injury, Lower Stated complaint: Left ankle and knee injury Time Seen by Provider: 11/01/23 08:21 Source: patient Mode of arrival: ambulatory History of Present Illness: 23-year-old female presents emergency ro om with left knee and ankle pain. She was walking her dog this morning stumbled and fell down felt a popping sensation in this joint she has been able to bear weight she ambulated to the room no significant swelling she previously had what I suspect is a medial collateral ligament repair she states she had a ligament repaired in indicates the medial aspect of the knee MD Complaint: joint pain Onset (ago): minute(s) Location: left, knee and other (Ankle) Quality: sharp Radiation: none Relieving factors: nothing Exacerbating factors: nothing Associated symptoms: Deny arthralgias, chest pain, fever(s), myalgias, rash or short of breath Review of Systems Const: Denies: fever(s) Card: Denies: chest pain Musc: Reports: joint pain (Left knee and ankle) Skin/Breast: Denies: rash PFSH ED PFSH: Medical History Reactive airway disease No pertinent past medical history neghx: htn,dm,thyroid,dvt/pe PCP: none C. difficile colitis (~04/2021) Anxiety GERD (gastroesophageal reflux disease) Surgical History Hx of anterior cruciate ligament tear reconstruction Status post colonoscopy (05/15/21) H/O esophagogastroduodenoscopy (05/15/21) History of tonsillectomy and adenoidectomy Family History Mother Diabetes Grandmother Diabetes Maternal Heart disease Maternal Hypercholesteremia Maternal Hypertension Maternal Thyroid disease Maternal Grandfather Diabetes Maternal Thyroid disease Maternal Denies family history of Colon cancer Ovarian cancer Hyperlipidemia Breast cancer Uterine cancer Stroke Female Reproductive History: Spontaneous abortions: No Physical Exam Narrative: EXAM NARRATIVE: Examination of the left knee no ligament instability or laxity no joint effusion no redness no erythema no laceration Examination of the left ankle dorsalis pedis posterior tibialis pulse positive. No ligamentous instability is laxities dorsum plantarflexion 5 of 5 neurovascularly intact Course Vital Signs: Vital signs: Vital Signs Temperature 98.1 F 11/01/23 08:19 Pulse Rate 72 11/01/23 08:19 Respiratory Rate 16 11/01/23 08:19 Blood Pressure 141/51 11/01/23 08:19 Pulse Oximetry 99 11/01/23 08:19 Oxygen Delivery Me thod Room Air 11/01/23 08:19 MDM - Extremity (Nontraumatic) Medical Decision Making Exam unremarkable noted ligamentous laxity is no deformities no joint swelling or effusions. X-rays negative. Patient states she does not feel like she can bear weight on them knee or ankle. Will place her knee immobilizer and crutches have her follow-up with orthopedics. Diclofenac as needed and lieu of ibuprofen Medical Records I reviewed the patient's medical records. Lab Data I reviewed the patient's lab results. XR interpretation done by ED provider, pending radiology final review Discharge Plan Discharge Patient Disposition: Home Clinical Impression: Left knee sprain, Left ankle sprain Condition: Stable Prescriptions: New diclofenac sodium 75 mg tablet,delayed release (DR/EC) 75 mg PO Q12H PRN (Reason: pain) Qty: 20 0RF Discontinued ibuprofen 600 mg tablet 600 mg PO Q8H PRN (Reason: pain) Qty: 60 0RF No Action Zyrtec 10 mg capsule 10 mg PO DAILY PRN (Reason: breathing allergic) Qty: 30 0RF promethazine-DM 6.25-15 mg/5 mL syrup 5 ml PO Q4H PRN (Reason: cough) Qty: 118 0RF Rx Instructions: Do not exceed more than 30ml/24hour period (6 doses) omeprazole 40 mg capsule,delayed release(DR/EC) 40 mg PO DAILY 30 Days Qty: 30 0RF amitriptyline 50 mg tablet See Rx Instructions .ROUTE .COMPLEX Qty: 30 0RF Dose Instruction: TAKE 1 TABLET BY MOUTH ONCE DAILY AT BEDTIME Rx Instructions: TAKE 1 TABLET BY MOUTH ONCE DAILY AT BEDTIME topiramate [Topamax] 100 mg tablet 100 mg PO DAILY Qty: 90 1RF Rx Instructions: 1/2 tab for 2 weeks then continue 1 whole tab NuvaRing 0.12-0.015 mg/24 hr ring 1 vag ring vaginal Q21D Qty: 3 0RF Rx Instructions: leave in for 3 weeks; remove for 7 and replace new ring metoprolol tartrate 25 mg tablet See Rx Instructions .ROUTE .COMPLEX Qty: 90 3RF Dose Instruction: Take 1/2 (one-half) tablet by mouth twice daily Rx Instructions: Take 1/2 (one-half) tablet by mouth twice daily Discharge Orders: Discharge ED (Routine); Ordered 11/01/23 Ordered By: Gurpreet Ross Referrals: Nikolai Logan, DO [Primary Care Provider] - Discharge Diet: Usual diet Discharge Activity: Limit activity as instructed Patient Instructions: Opioid Safety, Pain Management Activity Restrictions/Additional Instructions: Thank you for choosing [facility] for your healthcare needs today. Please realize this is an emergency room and that we are providing you with a medical screening exam and this may not be complete and all inclusive of all the testing and or work up that you may need to determine your ailment or severity of your illness. It is very important that you follow up as instructed or that you return to the Emergency Department should you have concerns or if your condition changes or worsens in any way. You received after spraining her left knee and ankle. X-rays were unremarkable did not show acute fractures. Exam was normal. Recommended knee immobilizer and nonweightbearing on the left leg until you follow-up with orthopedics. Stop ibuprofen and instead use diclofenac 1 every 12 hours as needed. Case management will make arrangements for the orthopedic appointment. Coding Level of Care Code ED Equipment Engineer for Yesica Manzo
--- NOTE | 2023-11-02 08:51 | DCPLANNER ---
Message sent to ortho for a follow up on L knee and ankle sprain
== END 2023-11-01 09:13 | disposition home or self-care (01) ==
PROVIDERS: Emergency Provider Family Medicine; PCP Family Medicine
DX: S93.402A Sprain of unspecified ligament of left ankle, initial encounter (principal); S83.92XA Sprain of unspecified site of left knee, initial encounter; W01.0XXA Fall on same level from slipping, tripping and stumbling without subsequent striking against object, initial encounter
CPT/HCPCS: 29530; 73562; 73610; 99283; E0114

== ENCOUNTER 2023-11-16 16:41 | Outpatient (CLI) | payer OTHER, SELFPAY ==
--- NOTE | 2023-11-16 16:45 | MR_ITS ---
WS: [id number] MRI LEFT KNEE NONCONTRAST TECHNIQUE: Axial PD, coronal PD fat sat, coronal PD, sagittal PD, and sagittal PD fat-sat images obta ined. CLINICAL INFORMATION: knee pain. History of prior surgery. COMPARISON: MRI left knee 11/21/2021 FINDINGS: Distal quadriceps and patella tendons are intact. Slightly hypertrophic patella. Previous postoperati ve changes involving the patella. Stable wedge-shaped osteotomy defect in the medial femoral metaphys is. Prior repair of the medial patellar retinaculum which appears intact. Mild chondromalacia patella . Normal lateral patellar retinaculum. Normal ACL and PCL. Mild chronic thinning of the medial and lateral meniscus. No acute appearing meni scal tears. Fibula head is normal in appearance. Mild prepatellar soft tissue edema. Medial and later al collateral ligaments appear intact. No other acute findings. MR/MR knee LT wo con* [id number] IMPRESSION: 1. Normal ACL and PCL. 2. No acute appearing meniscal tears. Mild chronic thinning of the medial and lateral meniscus. 3. Mild chondromalacia patella with prior repair of the medial patellar retina culum. 4. Stable osteotomy defect involving the femoral metaphysis. 5. No other acute findings or changes compared to previous. Outbridge grading: grade II: blister-like swelling/fraying of articular cartila ge extending to surface
== END 2023-11-16 16:42 | disposition home or self-care (01) ==
LOC: RAD 16:42
PROVIDERS: PCP Family Medicine; Visit Provider Orthopaedic Surgery
DX: M23.305 Other meniscus derangements, unspecified medial meniscus, unspecified knee (principal); M89.252 Other disorders of bone development and growth, left femur; M22.40 Chondromalacia patellae, unspecified knee; M24.10 Other articular cartilage disorders, unspecified site
CPT/HCPCS: 73721

== ENCOUNTER 2023-11-30 08:45 | Outpatient (RCR) | payer OTHER, SELFPAY | END 2023-12-26 23:59 | disposition home or self-care (01) | LOC: SPT 08:45 | PROVIDERS: PCP Family Medicine; Visit Provider Orthopaedic Surgery | DX: S83.8X2D Sprain of other specified parts of left knee, subsequent encounter (principal); X58.XXXD Exposure to other specified factors, subsequent encounter | CPT/HCPCS: 97110; 97161 ==

== ENCOUNTER 2023-12-27 06:00 | Outpatient (RCR) | payer OTHER, SELFPAY | END 2024-01-26 23:59 | disposition home or self-care (01) | LOC: SPT 06:00 | PROVIDERS: PCP Family Medicine; Visit Provider Orthopaedic Surgery | DX: S83.8X2D Sprain of other specified parts of left knee, subsequent encounter (principal); X58.XXXD Exposure to other specified factors, subsequent encounter | CPT/HCPCS: 97110 ==

== ENCOUNTER 2024-01-04 10:27 | Emergency (ER) | payer OTHER, SELFPAY ==
[2024-01-04 10:35] VITALS: PULSE 86; RESP 18; TEMP 36.8; O2SAT 97; BMI 38.6
[2024-01-04 12:31] LABS: Basophils # 0.1 10^3/uL (0.0-0.1); Basophils % 0.5 %; Eosinophils # 0.1 10^3/uL (0.0-0.8); Eosinophils % 1.5 %; Hematocrit 43.7 % (36-47); Lymphocytes # 3.5 10^3/uL (0.8-4.8); Lymphocytes % 37.7 %; Mean Corpuscular Hemoglobin 28.9 pg (27-33); Mean Corpuscular Volume 90.3 fl (85-98); Mean Platelet Volume 8.7 fL (7.4-10.4); Monocytes # 0.5 10^3/uL (0.2-0.9); Monocytes % 5.8 %; Neutrophils # 5.04 10^3/uL (1.8-7.7); Neutrophils % 54.2 %; Nucleated Red Blood Cells % 0 %; Platelet Count 335 10^3/cmm (157-399); Red Blood Count 4.84 10^6/uL (3.85-5.65); Red Cell Distribution Width 13.2 % (12.1-15.1); White Blood Count 9.31 10^3/uL (3.29-11.43)
[2024-01-04 12:48] VITALS: BP 156/70
[2024-01-04 12:51] LABS: Alanine Aminotransferase 16 U/L (0-33); Albumin Level 4.3 g/dL (3.5-5.2); Alkaline Phosphatase 93 U/L (35-105); Anion Gap 16.2 (5-19); Aspartate Amino Transferase 18 U/L (0-32); Blood Urea Nitrogen 10 mg/dL (6-20); Calcium 9.3 mg/dL (8.5-10.5); Carbon Dioxide 22 mmol/L (22-29); Chloride 104 mmol/L (98-107); Creatinine Clr Calc Pharmacy 175.6333; Globulin 3.4 g/dL (1.3-4.6); Glomerular Filtration Rate 123.9 mL/min (90-130); Glucose 75 mg/dL (65-115); Lipase 33 U/L (13-60); Osmolality Calculated 284 mOsm/kg (285-295); Potassium 4.2 mmol/L (3.5-5.1); Sodium 138 mmol/L (136-145); Total Bilirubin 0.4 mg/dL (0.15-1.2); Total Protein 7.7 g/dL (6.6-8.7)
--- NOTE | 2024-01-04 13:00 | CTR_ITS ---
PROCEDURE INFORMATION: Exam: CT Abdomen And Pelvis With Contrast Exam date and time: 01/04/2024 1:22 PM Age: 23 years old Clinical indication: Localized; Left lower quadrant (llq); Patient HX: PT presents with abdominal pain, llq. Patient states she does have HX of ovarian cysts on the right side and the pain feels somewhat the same; Additional info: Abd pain TECHNIQUE: Imaging protocol: Computed tomography of the abdomen and pelvis with contrast. Radiation optimization: All CT scans at this facility use at least one of these dose optimization techniques: automated exposure control; mA and/or kV adjustment per patient size (includes targeted exams where dose is matched to clinical indication); or iterative reconstruction. Contrast material: OMNI 350; Contrast volume: 100 ml; Contrast route: INTRAVENOUS (IV); COMPARISON: CT abdomen pelvis w con* [id number] 04/20/2023 4:38 PM RADIATION DOSE METRICS: Total DLP (mGy-cm): 924.98 FINDINGS: Liver: Normal. No mass. Gallbladder and biliary ducts: Normal. No calcified stones. No ductal dilation. Pancreas: Normal. No ductal dilation. Spleen: Normal. No splenomegaly. Adrenal glands: Normal. No mass. Kidneys and ureters: Normal. No hydronephrosis. Stomach and bowel: Unremarkable. No obstruction. No mucosal thickening. Appendix: No evidence of appendicitis. Intraperitoneal space: Unremarkable. No free air. No significant fluid collection. Vasculature: Unremarkable. No abdominal aortic aneurysm. Lymph nodes: Unremarkable. No enlarged lymph nodes. Urinary bladder: Unremarkable as visualized. Reproductive: There is a multiloculated cystic lesion versus adjacent cysts extending anterior to the uterus, likely arising from the left ovary. In conglomerate these measure approximately 5.6 x 6.2 cm. The right ovary appears within normal limits. Bones/joints: Unremarkable. No acute fracture. Soft tissues: Unremarkable. CT/CT abdomen pelvis w con* [id number] IMPRESSION: Multiloculated cystic lesion anterior to the uterus suspicious for multiple left ovarian cysts versus a multiloculated cystic lesion. Follow-up pelvic ultrasound is suggested for further evaluation. If there is clinical concern for ovarian torsion, ultrasound could be performed on an urgent basis
--- NOTE | 2024-01-04 13:00 | ED_ITS ---
HPI - Abdominal Pain 2 General: Chief Complaint: Abdominal Pain Stated Complaint: left abd pain, nausea Time Seen by Provider: 01/04/24 12:55 Source: patient Mode of arrival: ambulatory Limitations: no limitations History of Present Illness: 23-year-old female who states she has be en having left lower quadrant for the last 2 days. States the left lower quadrant pain has been sharp in nature rates a 7 out of 10 currently she denies any radiation denies any longer diarrhea last menstrual period was December 14 denies any dysuria or vaginal discharge. She states she has had a history of ovarian cyst in the past Associated Symptoms: Denies chills, diarrhea, dysuria, fever(s), nausea and vomiting Review of Systems 2 Const: Denies: fever(s), chills, body aches or change in appetite ENMT: Denies: throat pain or dental pain Card: Denies: chest pain Resp: Denies: dyspnea GI: Reports: abdominal pain; Denies: nausea, vomiting or diarrhea : Denies: dysuria Musc: Denies: neck pain or back pain Skin/Breast: Denies: rash Neuro: Denies: headache(s) PFSH ED 2 PFSH: Medical History Reactive airway disease No pertinent past medical history neghx: htn,dm,thyroid,dvt/pe PCP: none C. difficile colitis (~04/2021) Anxiety GERD (gastroesophageal reflux disease) Surgical History Hx of anterior cruciate ligament tear reconstruction Status post colonoscopy (05/15/21) H/O esophagogastroduodenoscopy (05/15/21) History of tonsillectomy and adenoidectomy Family History Mother Diabetes Grandmother Diabetes Maternal Heart disease Maternal Hypercholesteremia Maternal Hypertension Maternal Thyroid disease Maternal Grandfather Diabetes Maternal Thyroid disease Maternal Denies family history of Colon cancer Ovarian cancer Hyperlipidemia Breast cancer Uterine cancer Stroke Female Reproductive History: Spontaneous abortions: No Physical Exam 2 Const: COMMON NORMALS: no acute distress, patient oriented x3 and healthy appearing HENMT: COMMON NORMALS: normocephalic and atraumatic HEAD & SCALP: n ormocephalic and atraumatic Neck/C-Spine: COMMON NORMALS: full ROM and supple Chest: COMMONS NORMALS: normal inspection of the chest Resp: COMMON NORMALS: normal respiratory effort Cardio: COMMON NORMALS: regular rate, regular rhythm and No murmurs present (Cardio) RATE: regular rate RHYTHM: regular rhythm GI: COMMON NORMALS: Normal to inspection, nondistended, normoactive bowel sounds present, Soft to palpation and no masses PALPATION: Yes Soft to palpation and Yes Tenderness to palpation present (GI) Details: LLQ Extremity: COMMON NORMALS: normal to inspection and full ROM Neuro: COMMON NORMALS: patient oriented x3, moves all extremities and no focal motor deficits Psych: COMMON NORMALS: mental status grossly normal, Normal thought process present and cooperative THOUGHT PROCESS: Normal thought process present Skin: COMMON NORMALS: no rashes or lesions noted and no wounds GENERAL SKIN EXAM: no rashes or lesions noted Course 2 Vital Signs: Vital signs: Vital Signs Temperature 98.3 F 01/04/24 10:35 Pulse Rate 86 01/04/24 10:35 Respiratory Rate 18 01/04/24 10:35 Blood Pressure 156/70 01/04/24 12:48 Pulse Oximetry 97 01/04/24 10:35 Oxygen Delivery Me thod Room Air 01/04/24 10:35 MDM - Abdominal Pain Medical Decision Making Patient presents here with abdominal pain CT ultrasound did show an adnexal mass I have spoke to SUPERVISOR METAL CANS Dr. Chacon and reviewed the mass with him patient's pain is much improved here he is to follow her up outpatient Rob informed if she has worsening pain she is to return she understands agrees to plan. She has no signs of ovarian torsion. Medical Records I reviewed the patient's medical records. Lab Data I reviewed the patient's lab results. 01/04/24 12:14 01/04/24 12:14 Labs/Radiology: Radiology Impressions Abdomen/Pelvis CT 01/04/24 13:00 IMPRESSION: Multiloculated cystic lesion anterior to the uterus suspicious for multiple left ovarian cysts versus a multiloculated cystic lesion. Follow-up pelvic ultrasound is suggested for further evaluation. If there is clinical concern for ovarian torsion, ultrasound could be performed on an urgent basis Transvaginal US 01/04/24 14:17 Impression: 1. Complex right adnexal mass and recommend SUPERVISOR METAL CANS consult. 2. Left ovary not imaged. Laboratory Results WBC 9.31 10^3/uL (3.29-11.43) 01/04/24 12:14 RBC 4.84 10^6/uL (3.85-5.65) 01/04/24 12:14 Hgb 14.00 g/dL (11.27-16.99) 01/04/24 12:14 Hct 43.7 % (36-47) 01/04/24 12:14 MCV 90.3 fl (85-98) 01/04/24 12:14 MCH 28.9 pg (27-33) 01/04/24 12:14 MCHC 32.0 g/dL (30-55) 01/04/24 12:14 RDW 13.2 % (12.1-15.1) 01/04/24 12:14 Plt Count 335 10^3/cmm (157-399) 01/04/24 12:14 MPV 8.7 fL (7.4-10.4) 01/04/24 12:14 Neut % (Auto) 54.2 % 01/04/24 12:14 Lymph % (Auto) 37.7 % 01/04/24 12:14 [place] % (Auto) 5.8 % 01/04/24 12:14 Eos % (Auto) 1.5 % 01/04/24 12:14 Baso % (Auto) 0.5 % 01/04/24 12:14 Neut # (Auto) 5.04 10^3/uL (1.8-7.7) 01/04/24 12:14 Lymph # (Auto) 3.5 10^3/uL (0.8-4.8) 01/04/24 12:14 [place] # (Auto) 0.5 10^3/uL (0.2-0.9) 01/04/24 12:14 Eos # (Auto) 0.1 10^3/uL (0.0-0.8) 01/04/24 12:14 Baso # (Auto) 0.1 10^3/uL (0.0-0.1) 01/04/24 12:14 Nucleated RBC % (auto) 0 % 01/04/24 12:14 Nucleated RBCs # 0.0 /100WBC 01/04/24 12:14 Sodium 138 mmol/L (136-145) 01/04/24 12:14 Potassium 4.2 mmol/L (3.5-5.1) 01/04/24 12:14 Chloride 104 mmol/L (98-107) 01/04/24 12:14 Carbon Dioxide 22 mmol/L (22-29) 01/04/24 12:14 Anion Gap 16.2 (5-19) 01/04/24 12:14 BUN 10 mg/dL (6-20) 01/04/24 12:14 Creatinine 0.6 mg/dL (0.5-0.9) 01/04/24 12:14 GFR Calculation 123.9 mL/min (90-130) 01/04/24 12:14 Glucose 75 mg/dL (65-115) 01/04/24 12:14 Calculated Osmolality 284 mOsm/kg (285-295) L 01/04/24 12:14 Calcium 9.3 mg/dL (8.5-10.5) 01/04/24 12:14 Total Bilirubin 0.4 mg/dL (0.15-1.2) 01/04/24 12:14 AST 18 U/L (0-32) 01/04/24 12:14 ALT 16 U/L (0-33) 01/04/24 12:14 Alkaline Phosphatase 93 U/L (35-105) 01/04/24 12:14 Total Protein 7.7 g/dL (6.6-8.7) 01/04/24 12:14 Albumin 4.3 g/dL (3.5-5.2) 01/04/24 12:14 Globulin 3.4 g/dL (1.3-4.6) 01/04/24 12:14 Lipase 33 U/L (13-60) 01/04/24 12:14 HCG, Qual Negative (Negative) 01/04/24 12:14 Urine Color Yellow (Yellow) 01/04/24 12:57 Urine Appearance Clear (CLEAR) 01/04/24 12:57 Urine pH 7 (5-7) 01/04/24 12:57 Ur Specific [place] 1.010 (1.005-1.030) 01/04/24 12:57 Urine Protein Neg (Negative) 01/04/24 12:57 Urine Glucose (UA) Norm (Normal) 01/04/24 12:57 Urine Ketones 1+ (Negative) H 01/04/24 12:57 Urine Blood Neg (Negative) 01/04/24 12:57 Urine Nitrate Negative (Negative) 01/04/24 12:57 Urine Bilirubin Neg (Negative) 01/04/24 12:57 Urine Urobilinogen Neg mg/dL (Negative) 01/04/24 12:57 Ur Leukocyte Esterase Negative (Negative) 01/04/24 12:57 All radiology interpretation(s) finalized by discharge Discharge Plan Discharge Patient Disposition: Home Clinical Impression: Adnexal mass Condition: Stable Prescriptions: New hydrocodone-acetaminophen 5-325 mg tablet 1 tab PO Q6H PRN (Reason: pain) Qty: 14 0RF No Action Zyrtec 10 mg capsule 10 mg PO DAILY PRN (Reason: breathing allergic) Qty: 30 0RF topiramate [Topamax] 100 mg tablet 100 mg PO DAILY Qty: 90 1RF NuvaRing 0.12-0.015 mg/24 hr ring 1 vag ring vaginal Q21D Qty: 3 0RF Rx Instructions: leave in for 3 weeks; remove for 7 and replace new ring sumatriptan succinate 25 mg tablet See Rx Instructions .ROUTE .COMPLEX Rx Instructions: TAKE ONE TABLET BY MOUTH AT ONSET OF HEADACHE, IF NOT RELIEF, MAY REPEAT 1 TABLET AFTER AT LEAST 2 HOURS (MAX 4 TABS PER 24 HOURS) amitriptyline 50 mg tablet 50 mg PO BEDTIME metoprolol tartrate 25 mg tablet 12.5 mg PO BID Discharge Orders: Discharge ED (Routine); Ordered 01/04/24 Ordered By: Araceli Toney Referrals: Nikolai Logan DO [Primary Care Provider] - Cali Chacon MD [Physician] - 1-3 days Discharge Diet: Advance as tolerated Discharge Activity: Resume usual activity Patient Instructions: Ovarian Cyst (ED) Coding Level of Care Code ED Fusing Machine Tender for Yesica Manzo
[2024-01-04 13:07] LABS: Add Urine Microscopic? NO; Charge for UA Resulting for Rev
[2024-01-04] MEDS: ondansetron 2 mg/ML SDV 2 mL 4 MG IVP (13:07)
[2024-01-04] MEDS: morphine 4 mg/mL SDV 1 mL IVP (13:08)
[2024-01-04 13:12] LABS: Bilirubin Urine Neg (Negative); Blood Urine Neg (Negative); Glucose Urine UA Norm (Normal); Ketones Urine 1+ (Negative); Leukocyte Esterase Urine Negative (Negative); Nitrate Urine Negative (Negative); Protein Urine Neg (Negative); Urine Appearance Clear (CLEAR); Urine Color Yellow (Yellow); Urobilinogen Urine Neg (Negative); pH Urine 7 (5-7)
[2024-01-04 13:12] LABS: HCG, Serum Qual Negative (Negative)
[2024-01-04] MEDS: iohexol 350 mg/mL 500 mL Btl (per mL) IV (13:24)
--- NOTE | 2024-01-04 14:17 | US_ITS ---
WS: [id number] Pelvic ultrasound, 01/04/2024 Clinical Data: abd pain Comparison: None. Findings: The uterus measures 7.61 cm x 5.5 cm x 4.8 cm. The endometrium is 1.1 cm. No intrauterine or abnormal intrauterine mass is seen. The left ovary was not seen. The right ovary measures 2.8 cm x 1.8 cm x 2.4 cm with no cysts or masses. There is a complex right adnexal mass measuring 5.1 x 5.9 x 6.6 cm. There are numerous echogenic sign als within this mass which is a well-defined smooth border. There is blood flow into this mass. There is no fluid in the cul-de-sac. US/US transvaginal [id number] Impression: 1. Complex right adnexal mass and recommend HIGH SCHOOL MUSIC DIRECTOR consult. 2. Left ovary not imaged.
--- NOTE | 2024-01-05 11:31 | DCPLANNER ---
sent message to [facility] for [facility] f/u
== END 2024-01-04 15:57 | disposition home or self-care (01) ==
PROVIDERS: Physician Assistant; Emergency Provider Emergency Medicine; PCP Family Medicine
DX: R19.09 Other intra-abdominal and pelvic swelling, mass and lump (principal); Z79.899 Other long term (current) drug therapy
CPT/HCPCS: 36415; 74177; 76830; 80053; 81003; 83690; 84703; 85025; 96374; 96375; 99285; J2270; J2405; Q9967

== ENCOUNTER 2024-01-11 18:08 | Emergency (ER) | payer OTHER, SELFPAY ==
--- NOTE | 2024-01-11 18:25 | PC.NURSE ---
called pt for triage at 1820, not in WR or [facility] bathroom
[2024-01-11 18:27] VITALS: BP 133/84; PULSE 77; RESP 16; TEMP 36.4; O2SAT 99
--- NOTE | 2024-01-11 18:27 | PC.NURSE ---
pt to triage at 1827
[2024-01-11 18:54] LABS: Basophils % 0.3 %; Eosinophils # 0.1 10^3/uL (0.0-0.8); Eosinophils % 1.4 %; Lymphocytes # 3.4 10^3/uL (0.8-4.8); Lymphocytes % 37.3 %; Mean Corpuscular HGB Conc 32.3 g/dL (30-55); Mean Corpuscular Hemoglobin 28.8 pg (27-33); Mean Corpuscular Volume 89.2 fl (85-98); Mean Platelet Volume 8.9 fL (7.4-10.4); Monocytes # 0.5 10^3/uL (0.2-0.9); Neutrophils % 55.7 %; Nucleated Red Blood Cells % 0 %; Platelet Count 351 10^3/cmm (157-399); Red Blood Count 4.37 10^6/uL (3.85-5.65); Red Cell Distribution Width 13.4 % (12.1-15.1); White Blood Count 8.99 10^3/uL (3.29-11.43)
[2024-01-11 19:05] LABS: HCG, Serum Qual Negative (Negative)
[2024-01-11 19:08] LABS: Alanine Aminotransferase 14 U/L (0-33); Albumin Level 4.3 g/dL (3.5-5.2); Alkaline Phosphatase 76 U/L (35-105); Anion Gap 14.6 (5-19); Aspartate Amino Transferase 15 U/L (0-32); Blood Urea Nitrogen 10 mg/dL (6-20); Calcium 9.2 mg/dL (8.5-10.5); Carbon Dioxide 22 mmol/L (22-29); Chloride 107 mmol/L (98-107); Creatinine Clr Calc Pharmacy 150.5428; Globulin 3.2 g/dL (1.3-4.6); Glomerular Filtration Rate 103.7 mL/min (90-130); Glucose 101 mg/dL (65-115); Lipase 34 U/L (13-60); Osmolality Calculated 289 mOsm/kg (285-295); Potassium 3.6 mmol/L (3.5-5.1); Sodium 140 mmol/L (136-145); Total Bilirubin 0.2 mg/dL (0.15-1.2); Total Protein 7.5 g/dL (6.6-8.7)
--- NOTE | 2024-01-11 19:25 | USR_ITS ---
PROCEDURE INFORMATION: Exam: US Pelvis, Transvaginal, Non-Obstetric Exam date and time: 01/11/2024 7:54 PM Age: 23 years old Clinical indication: Pelvic pain; Additional info: Left lower abd pain/hx of cysts TECHNIQUE: Imaging protocol: Real-time transvaginal pelvic (non-obstetric) ultrasound with image documentation. Transvaginal imaging was used for better evaluation of the endometrium, adnexa, and/or cervix. COMPARISON: US transvaginal [id number] 01/04/2024 2:46 PM FINDINGS: Uterus: The uterus measures 7.8 x 5.3 x 4.8 cm and is normal in echogenicity. Endometrium is normal in echogenicity and measures 7 mm. Right ovary/adnexa: The right ovary appears normal measuring 3.3 x 2.4 x 1.9 cm with a volume of 7.9 cc. Normal vascularity. Normal follicles. No mass. Left ovary/adnexa: The left ovary measures 3.4 x 3.3 x 2.3 cm with a volume of 13.8 cc. Normal vascularity. There is a 1.6 cm barbell shaped cyst with low-level internal echoes consistent with a recently ruptured ovarian cyst. Urinary bladder: Urinary bladder is limited. Intraperitoneal space: No free fluid. US/US transvaginal [id number] IMPRESSION: 1.6 cm barbell shaped cyst in the left ovary with low-level internal echoes consistent with a recently ruptured ovarian cyst.
--- NOTE | 2024-01-11 19:26 | W.ED.ABDPA2 ---
HPI - Abdominal Pain General: Chief Complaint: Abdominal Pain Stated Complaint: Cyst On Ovary\Pain Time Seen by Provider: 01/11/24 19:15 Source: patient Mode of arrival: ambulatory Limitations: no limitations History of Present Illness: Patient is a 23 y/o female presenting to the ED for LLQ abd pain for the past week. Dx with compex ovarian cyst and has been seeing Dr. Chacon. She notes that she was told to come to the ED for any severe pain, rating it a 9/10 right now and radiates to the back. Also is reporting some nausea. No new symptoms to report at this time. Has been taking Ibuprofen and Tylenol at home, has not really been helping. MD elicited complaint: abdominal pain Pertinent past history: other (ovarian cysts) Onset (ago): week(s) Pain Consistency: constant Location: LLQ Severity: severe Pain scale (0-10): 8 Radiation: back Exacerbating factors: nothing Relieving factors: nothing Associated Symptoms: Reports nausea; Denies bloating, change in stool character, chills, constipation, diarrhea, dysuria, fever(s), hematochezia, hematuria and vomiting Treatments prior to arrival: NSAIDs Related Data: Patient : No Review of Systems General: Reports: 10 or more systems reviewed and unremarkable except in HPI and below Const: Denies: fever(s), chills, change in appetite, change in weight or diaphoresis ENMT: Denies: throat pain or hoarseness Card: Denies: chest pain, palpitations or lightheadedness Resp: Denies: dyspnea, productive cough or wheezing GI: Reports: abdominal pain and nausea; Denies: vomiting, diarrhea, constipation, bloating, change in stool character or hematochezia : Denies: flank pain, difficulty voiding, dysuria, urinary frequency, urinary urgency, hematuria, vaginal odor, vaginal bleeding or vaginal discharge Musc: Reports: back pain; Denies: neck pain Skin/Breast: Denies: rash or new lesions Neuro: Denies: headache(s) or dizziness [facility] PFSH: Medical History Reactive airway disease No pertinent past medical history neghx: htn,dm,thyroid,dvt/pe PCP: none C. difficile colitis (~04/2021) Anxiety GERD (gastroesophageal reflux disease) Surgical History Hx of anterior cruciate ligament tear reconstruction Status post colonoscopy (05/15/21) H/O esophagogastroduodenoscopy (05/15/21) History of tonsillectomy and adenoidectomy Family History Mother Diabetes Grandmother Diabetes Maternal Heart disease Maternal Hypercholesteremia Maternal Hypertension Maternal Thyroid disease Maternal Grandfather Diabetes Maternal Thyroid disease Maternal Denies family history of Colon cancer Ovarian cancer Hyperlipidemia Breast cancer Uterine cancer Stroke Social History Smoking and tobacco/nicotine status: never used tobacco/nicotine Female Reproductive History: Spontaneous abortions: No Physical Exam Const: COMMON NORMALS: no acute distress, patient oriented x3, no limitations, healthy appearing, alert and well nourished GENERAL APPEARANCE: cooperative and comfortable NUTRITIONAL APPEARANCE: obese ORIENTATION/CONSCIOUSNESS: Yes awake HENMT: COMMON NORMALS: normocephalic, atraumatic, hearing grossly normal bilaterally, external ears normal, Normal external nose present, Normal nasal mucous membranes and turbinates present and moist oral mucous membranes HEAD & SCALP: normocephalic and atraumatic NOSE: Normal external nose present and Normal nasal mucous membranes and turbinates present EXTERNAL EAR: Yes external ears normal Eye: COMMON NORMALS: Equal, round and reactive pupils present, EOMs intact bilaterally, conjunctivae normal and normal visual beck by confrontation CONJUNCTIVA: Yes conjunctivae normal PUPIL: Yes Equal, round and reactive pupils present Neck/C-Spine: COMMON NORMALS: full ROM, supple, no meningeal signs and no JVD Resp: COMMON NORMALS: normal respiratory effort, No retractions, No use of accessory muscles and clear to auscultation bilaterally AUSCULTATION: clear to auscultation bilaterally, no crackles, no rales, no rhonchi and no wheezes Cardio: COMMON NORMALS: no JVD, regular rate, regular rhythm, S1 normal heart sound present, S2 normal heart sound present, No gallops present (Cardio), No clicks present (Cardio), No murmurs present (Cardio), No rub (Cardio) and Peripheral pulses 2+ throughout RATE: regular rate RHYTHM: regular rhythm HEART SOUNDS: S1 normal heart sound present and S2 normal heart sound present PERIPHERAL PULSES: Peripheral pulses 2+ throughout GI: COMMON NORMALS: Normal to inspection, nondistended, normoactive bowel sounds present, Soft to palpation, No hepatosplenomegaly present and no masses AUSCULTATION: Yes normoactive bowel sounds PALPATION: Yes Soft to palpation, Yes Tenderness to palpation present (GI) (mild) Details: LLQ, No Guarding due to palpation present (GI), No Rigid due to palpation and Yes No hepatosplenomegaly present RECTAL EXAM: deferred : COMMON NORMALS: Yes no CVA tenderness BLADDER/KIDNEY EXAM: Yes no CVA tenderness Back/Pelvis: COMMON NORMALS: no CVA tenderness Extremity: COMMON NORMALS: normal to inspection and full ROM Neuro: COMMON NORMALS: patient oriented x3, moves all extremities, no focal motor deficits and no sensory deficits noted SENSORIUM/ORIENTATION: Yes alert MENINGEAL SIGNS: Yes no meningeal signs Psych: COMMON NORMALS: mental status grossly normal, cooperative and speech normal SPEECH: Yes normal speech Skin: COMMON NORMALS: no rashes or lesions noted GENERAL SKIN EXAM: no rashes or lesions noted Course Vital Signs: Vital signs: Vital Signs Temperature 97.6 F 01/11/24 18:27 Pulse Rate 77 01/11/24 18:27 Respiratory Rate 16 01/11/24 18:27 Blood Pressure 133/84 01/11/24 18:27 Pulse Oximetry 99 01/11/24 18:27 Oxygen Delivery Me thod Room Air 01/11/24 18:27 MDM - Abdominal Pain Medical Decision Making Patient presented for the second time in a week due to left lower quadrant pain, was previously seen in the emergency department and diagnosed with ovarian cyst. Since she has followed up with Dr. Chacon, OB, and started on estradiol. She does state that she has been diagnosed with PCOS in the past. Blood work obtained today was normal, urinalysis was also normal. She is given Zofran and Toradol for pain, and upon recheck states that this has been making her pain feel better. In addition to this and ultrasounds obtained to reevaluate the ovary, and there is evidence that there was rupture of the previously seen ovarian cyst from a week ago. This is likely explaining her increasing pain, I do expect this pain to subside over the next 2 days. I did instruct her to do close follow-up with her OB, and return with any new or worsening symptoms. Lab Data 01/11/24 18:27 01/11/24 18: Labs/Radiology: Radiology Impressions Transvaginal US 01/11/24 19:25 IMPRESSION: 1.6 cm barbell shaped cyst in the left ovary with low-level internal echoes consistent with a recently ruptured ovarian cyst. Laboratory Results WBC 8.99 10^3/uL (3.29-11.43) 01/11/24 18: RBC 4.37 10^6/uL (3.85-5.65) 01/11/24 18: Hgb 12.60 g/dL (11.27-16.99) 01/11/24 18: Hct 39.0 % (36-47) 01/11/24 18: MCV 89.2 fl (85-98) 01/11/24 18: MCH 28.8 pg (27-33) 01/11/24 18: MCHC 32.3 g/dL (30-55) 01/11/24 18: RDW 13.4 % (12.1-15.1) 01/11/24 18: Plt Count 351 10^3/cmm (157-399) 01/11/24 18: MPV 8.9 fL (7.4-10.4) 01/11/24 18: Neut % (Auto) 55.7 % 01/11/24 18: Lymph % (Auto) 37.3 % 01/11/24 18: [place] % (Auto) 5.0 % 01/11/24 18: Eos % (Auto) 1.4 % 01/11/24 18: Baso % (Auto) 0.3 % 01/11/24 18: Neut # (Auto) 5.00 10^3/uL (1.8-7.7) 01/11/24 18: Lymph # (Auto) 3.4 10^3/uL (0.8-4.8) 01/11/24 18: [place] # (Auto) 0.5 10^3/uL (0.2-0.9) 01/11/24 18: Eos # (Auto) 0.1 10^3/uL (0.0-0.8) 01/11/24 18:27 Baso # (Auto) 0.0 10^3/uL (0.0-0.1) 01/11/24 18: Nucleated RBC % (auto) 0 % 01/11/24 18: Nucleated RBCs # 0.0 /100WBC 01/11/24 18:27 Sodium 140 mmol/L (136-145) 01/11/24 18: Potassium 3.6 mmol/L (3.5-5.1) 01/11/24 18: Chloride 107 mmol/L (98-107) 01/11/24 18: Carbon Dioxide 22 mmol/L (22-29) 01/11/24 18: Anion Gap 14.6 (5-19) 01/11/24 18: BUN 10 mg/dL (6-20) 01/11/24 18: Creatinine 0.7 mg/dL (0.5-0.9) 01/11/24 18: GFR Calculation 103.7 mL/min (90-130) 01/11/24 18: Glucose 101 mg/dL (65-115) 01/11/24 18: Calculated Osmolality 289 mOsm/kg (285-295) 01/11/24 18: Calcium 9.2 mg/dL (8.5-10.5) 01/11/24 18: Total Bilirubin 0.2 mg/dL (0.15-1.2) 01/11/24 18: AST 15 U/L (0-32) 01/11/24 18: ALT 14 U/L (0-33) 01/11/24 18: Alkaline Phosphatase 76 U/L (35-105) 01/11/24 18: Total Protein 7.5 g/dL (6.6-8.7) 01/11/24 18: Albumin 4.3 g/dL (3.5-5.2) 01/11/24 18: Globulin 3.2 g/dL (1.3-4.6) 01/11/24 18: Lipase 34 U/L (13-60) 01/11/24 18:27 HCG, Qual Negative (Negative) 01/11/24 18:27 Urine Color Yellow (Yellow) 01/11/24 19:40 Urine Appearance Slightly cloudy (CLEAR) 01/11/24 19:40 Urine pH 5 (5-7) 01/11/24 19:40 Ur Specific [place] 1.025 (1.005-1.030) 01/11/24 19:40 Urine Protein Neg (Negative) 01/11/24 19:40 Urine Glucose (UA) Norm (Normal) 01/11/24 19:40 Urine Ketones Negative (Negative) 01/11/24 19:40 Urine Blood Neg (Negative) 01/11/24 19:40 Urine Nitrate Negative (Negative) 01/11/24 19:40 Urine Bilirubin Neg (Negative) 01/11/24 19:40 Urine Urobilinogen Norm mg/dL (Negative) 01/11/24 19:40 Ur Leukocyte Esterase Negative (Negative) 01/11/24 19:40 Urine RBC None /hpf (0-2) 01/11/24 19:40 Urine WBC 0-4 /hpf (0-5) H 01/11/24 19:40 Ur Squamous Epith Cells 0-4 /hpf (0-5) H 01/11/24 19:40 Amorphous Sediment Not Reportable 01/11/24 19:40 Urine Bacteria 1+ /hpf (NONE) H 01/11/24 19:40 Urine Mucus 2+ /hpf 01/11/24 19:40 All radiology interpretation(s) finalized by discharge Discharge Plan Discharge Patient Disposition: Home Clinical Impression: Ovarian cyst rupture Condition: Stable Prescriptions: No Action Zyrtec 10 mg capsule 10 mg PO DAILY PRN (Reason: breathing allergic) Qty: 30 0RF NuvaRing 0.12-0.015 mg/24 hr ring 1 vag ring vaginal Q21D Qty: 3 0RF Rx Instructions: leave in for 3 weeks; remove for 7 and replace new ring topiramate [Topamax] 100 mg tablet 100 mg PO DAILY Qty: 90 1RF sumatriptan succinate 25 mg tablet See Rx Instructions .ROUTE .COMPLEX Rx Instructions: TAKE ONE TABLET BY MOUTH AT ONSET OF HEADACHE, IF NOT RELIEF, MAY REPEAT 1 TABLET AFTER AT LEAST 2 HOURS (MAX 4 TABS PER 24 HOURS) amitriptyline 50 mg tablet 50 mg PO BEDTIME metoprolol tartrate 25 mg tablet 12.5 mg PO BID Discharge Orders: Discharge ED (Routine); Ordered 01/11/24 Ordered By: Erwin Ching Referrals: Nikolai Logan DO [Primary Care Provider] - Discharge Diet: Usual diet Discharge Activity: Increase activity as tolerated Patient Instructions: Ruptured Ovarian Cyst (ED) Activity Restrictions/Additional Instructions: Continue taking ibuprofen for pain. Follow-up with your OB as necessary. Return with any new or worsening symptoms. Coding Level of Care Code ED Registered Dietician for Yesica Manzo
[2024-01-11 19:57] LABS: Add Urine Microscopic? YES; Bilirubin Urine Neg (Negative); Blood Urine Neg (Negative); Glucose Urine UA Norm (Normal); Ketones Urine Negative (Negative); Leukocyte Esterase Urine Negative (Negative); Nitrate Urine Negative (Negative); Protein Urine Neg (Negative); Specific Gravity, Urine 1.025 (1.005-1.030); Urine Appearance Slightly Cloudy (CLEAR); Urine Color Yellow (Yellow); Urobilinogen Urine Norm (Negative); pH Urine 5 (5-7)
[2024-01-11] MEDS: ondansetron 4 MG Tablet PO (20:04)
[2024-01-11] MEDS: ketorolac 60 mg/2 mL INJ IM (20:07)
[2024-01-11 20:22] LABS: Squamous Epithelial Cell Urine 0-4 /hpf (0-5); WBC Urine 0-4 /hpf (0-5)
[2024-01-11 20:23] LABS: Add Urine Culture? No; Bacteria Urine 1+ /hpf; Mucus Urine 2+ /hpf
== END 2024-01-11 21:29 | disposition home or self-care (01) ==
PROVIDERS: Emergency Medicine; Emergency Provider Physician Assistant; PCP Family Medicine
DX: N83.202 Unspecified ovarian cyst, left side (principal)
CPT/HCPCS: 36415; 76830; 80053; 81001; 83690; 84703; 85025; 96372; 99284; J1885; Q0162

== ENCOUNTER → 2024-01-27 09:22 | Outpatient (BNVA) | payer OTHER, SELFPAY | PROVIDERS: PCP Family Medicine; Visit Provider Nurse Practitioner Women's Health | DX: Z13.29 Encounter for screening for other suspected endocrine disorder (principal); E28.2 Polycystic ovarian syndrome | CPT/HCPCS: 82306; 83036; 84403; 84439; 84443; 84702 ==

== ENCOUNTER → 2024-02-29 13:32 | Outpatient (BNVA) | payer OTHER, SELFPAY | PROVIDERS: PCP Family Medicine; Visit Provider Obstetrics & Gynecology | DX: E28.2 Polycystic ovarian syndrome (principal) | CPT/HCPCS: 76830 ==

== ENCOUNTER → 2024-04-24 08:34 | Outpatient (BNVA) | payer OTHER, SELFPAY | PROVIDERS: Visit Provider Nurse Practitioner Women's Health | DX: Z32.01 Encounter for pregnancy test, result positive (principal); N91.2 Amenorrhea, unspecified | CPT/HCPCS: 81025; 84702; 86850; 86900 ==

== ENCOUNTER → 2024-05-01 12:14 | Outpatient (BNVA) | payer OTHER, SELFPAY | PROVIDERS: Visit Provider Obstetrics & Gynecology | DX: Z36.87 Encounter for antenatal screening for uncertain dates (principal); Z3A.01 Less than 8 weeks gestation of pregnancy | CPT/HCPCS: 76801 ==

== ENCOUNTER → 2024-05-22 11:14 | Outpatient (BNVA) | payer MEDICAID, SELFPAY | PROVIDERS: Visit Provider Nurse Practitioner Women's Health | DX: Z34.90 Encounter for supervision of normal pregnancy, unspecified, unspecified trimester (principal); R00.2 Palpitations; R01.1 Cardiac murmur, unspecified; Z3A.10 10 weeks gestation of pregnancy | CPT/HCPCS: 80307; 84315; 84443; 85025; 86592; 86762; 86803; 86850; 86900; 87086; 87340; 87491; 87591; 87806 ==

== ENCOUNTER → 2024-06-06 10:06 | Outpatient (BNVA) | payer MEDICAID, SELFPAY | PROVIDERS: Visit Provider Obstetrics & Gynecology | DX: Z34.90 Encounter for supervision of normal pregnancy, unspecified, unspecified trimester (principal); Z01.419 Encounter for gynecological examination (general) (routine) without abnormal findings | CPT/HCPCS: 82950; 84315; 87624 ==

== ENCOUNTER → 2024-06-13 12:34 | Outpatient (BNVA) | payer MEDICAID, SELFPAY | PROVIDERS: Visit Provider Nurse Practitioner Family | DX: J02.9 Acute pharyngitis, unspecified (principal); J06.9 Acute upper respiratory infection, unspecified | CPT/HCPCS: 87071; 87880 ==

== ENCOUNTER → 2024-07-06 08:43 | Outpatient (BNVA) | payer MEDICAID, SELFPAY | PROVIDERS: Visit Provider Nurse Practitioner Women's Health | DX: Z34.90 Encounter for supervision of normal pregnancy, unspecified, unspecified trimester (principal); Z3A.00 Weeks of gestation of pregnancy not specified; N39.0 Urinary tract infection, site not specified | CPT/HCPCS: 82105; 84315 ==

== ENCOUNTER → 2024-08-02 13:03 | Outpatient (BNVA) | payer MEDICAID, SELFPAY | PROVIDERS: Visit Provider Obstetrics & Gynecology | DX: Z34.92 Encounter for supervision of normal pregnancy, unspecified, second trimester (principal) | CPT/HCPCS: 76805 ==

== ENCOUNTER 2024-08-11 07:10 | Outpatient (CLI) | payer MEDICAID, SELFPAY ==
--- NOTE | 2024-08-11 07:00 | USCV_ITS ---
Mary Jimenez Age: 24 Gender: F : 2000 Exam Date: 08/11/2024 07:37 Ordering Phys: Galileo Oliveira M.D ([email or web address]) Technologist: Tre Rizo Exam Location: [facility] – [place] Indication: chest pain BP: 110 / 78 HR: 81 Rhythm: Sinus Technical Quality: Adequate MEASUREMENTS (Male / Female) Normal Values 2D ECHO LV Diastolic Diameter PLAX 4.8 cm 4.2 - 5.9 / 3.9 - 5.3 cm IVS Diastolic Thickness 0.9 cm 0.6 - 1.0 / 0.6 - 0.9 cm IVS Systolic Thickness 1.1 cm LVPW Diastolic Thickness 1.0 cm 0.6 - 1.0 / 0.6 - 0.9 cm LVPW Systolic Thickness 1.8 cm LVOT Diameter 2.0 cm LV Ejection Fraction 2D Teich 63.8 % LV Ejection Fraction MOD 4C 62.9 % LV Ejection Fraction MOD 2C 64.6 % LV Ejection Fraction 2C AL 64.0 % LA Diameter 3.4 cm RA Systolic Volume 4C AL 28.2 ml RA Systolic Volume 4C MOD 29.6 ml LA Sys Volume AL 49.6 cm cubed LA Sys Volume Index AL 22.3 cm cubed/m squared Aorta at Sinotubular Diameter 1.8 cm IVC Diameter 1.9 cm M-MODE LA Ao Ratio MM 1.5 AV Cusp Separation MM 1.7 cm DOPPLER AV Peak Velocity 208.0 cm/s LVOT Peak Velocity 116.0 cm/s AV Area Cont Eq vti 2.1 cm squared AV Area Cont Eq pk 1.8 cm squared MV Peak Velocity 124.0 cm/s MV Area PHT 4.4 cm squared Mitral E to A Ratio 1.3 TV Peak Velocity 267.5 cm/s TR Peak Velocity 303.0 cm/s TR Peak Gradient 36.7 mmHg TR Mean Velocity 235.0 cm/s TR Mean Gradient 23.7 mmHg TR Velocity Time Integral 81.4 cm PV Peak Velocity 123.0 cm/s RV Ejection Time 0.3 s FINDINGS Left Ventricle LV systolic function is normal in size. LV systolic function is normal with EF of 55-60%. No regional wall motion abnormalities are seen. Right Ventricle Normal in size and function Right Atrium Normal in size Left Atrium Normal in size Mitral Valve Mitral valve is thickened. Mild mitral regurgitation. Aortic Valve Structurally normal aortic valve. Mild aortic stenosis with mean gradient of 8.5mmHg. Aortic valve area is 2cm2 Tricuspid Valve Mild tricuspid regurgitation. RVSP is normal Pulmonic Valve Mild pulmonic regurgitation. Pericardium Normal Aorta Normal in size IVC Appears to be normal CONCLUSIONS LV systolic function is normal with EF of 55-60% Mild mitral regurgitation Mild aortic stenosis Mild tricuspid regurgitation Mild pulmonic regurgitation Galileo Oliveira MD (Electronically Signed) Final Date: 20 August 2024 11:32 S
== END 2024-08-11 07:11 | disposition home or self-care (01) ==
LOC: RAD 07:10
PROVIDERS: PCP Family Medicine; Visit Provider Internal Medicine
DX: R07.9 Chest pain, unspecified (principal); R06.02 Shortness of breath; Z34.80 Encounter for supervision of other normal pregnancy, unspecified trimester; I34.0 Nonrheumatic mitral (valve) insufficiency; I35.0 Nonrheumatic aortic (valve) stenosis; I07.1 Rheumatic tricuspid insufficiency; I37.1 Nonrheumatic pulmonary valve insufficiency
CPT/HCPCS: 84315; 93306

== ENCOUNTER 2024-08-12 19:23 | Outpatient (CLI) | payer MEDICAID, SELFPAY ==
--- OUTSIDE RECORDS SUMMARY | 2024-08-12 19:31 | XMS_ITS | Continuity of Care Document ---
Author Organization [facility] Address [address] [id number] [address] Phone Care Team Providers Care Study Specialist Name Role Phone Unavailable Unavailable Unavailable Allergies, Adverse Reactions, Alerts Substance Reaction Status Criticality No Known Allergies Active No Inform ation Medications Medication Instructions Dosage Effective Dates (start - stop) Status Comments Periogard 0.12 % mouthwash This is an oral rinse. Swish with one capful for 30 seconds then spit out. Twice a day. DO NOT EAT OR DRINK FOR ONE HOUR FOLLOWING. - Active 1 Bottle Buchanan 7.5 mg-325 mg tablet take 1 tablet by oral route every 6 hours as needed for breakthrough pain. - Active PROTONIX (unknown strength) take 2 tablet by oral route every day Not Available - Active CLARITIN (unknown strength) take 1 tablet by oral route every day Not Available - Active Procedures Procedure Date Removal Of Impacted Tooth ??? Completely Bony Removal Of Impacted Tooth ??? Completely Bony Removal Of Impacted Tooth ??? Partially Bony Removal Of Impacted Tooth ??? Completely Bony IV Moderate (conscious) Sedation/analges ia, 15 Min IV Moderate (conscious) Sedation/analges ia, 15 Min IV Moderate (conscious) Sedation/analges ia, 15 Min Removal Of Impacted Tooth ??? Completely Bony EDR Approval Note Limited Oral Evaluation ??? Problem Focu sed EDR Approval Note Advance Directives Directive Yes / No Effective Date File Name No Information Encounters Encounter Description Practice Location Reason(s) For Visit Diagnoses Date Provider Providers Copied on Encounter [facility], [id number] [facility], [place], [place], [id number], [place] tel:[phone] [facility] Encounter for dental exam and cleaning w/o abnormal findings No Information [facility], [id number] [place], [place], [id number], [place] tel:[phone] [facility] Encounter for dental exam and cleaning w/o abnormal findings No Information Family History Family Member Type Diagnosis Age At Onset No Information Payers Payer name Insurance type Covered republican ID Authordadaa nelakeon(s) D [employer] CI [id number] Social History Type Description Quantity Date Captured Comments Alcohol Use Details Unknown Caffeine Use Details Unknown Tobacco Use Status No Information Smoking Status No Information Sex Female Sexual Orientation Heterosexual Gender Identity Female Chief Complaint And Reason For Visit No Information Reason For Referral Reason For Referral No Information History Of Present Illness Encounter Date Complaint History Of Prese nt Illness No Information Functional Status Date Functional Assessmen t No Information Instructions Date Instruction Additional Infor mation Lifestyle education Related to D ental Examination Assessments Type Assessment Date No Information Patient Care Teams Name Effective Dates (start - stop) Status Members No Information
[2024-08-12 19:38] VITALS: BP 121/71; PULSE 86
[2024-08-12 19:53] VITALS: BP 113/65; PULSE 96; BMI 22.0
[2024-08-12 20:08] VITALS: BP 115/65; PULSE 88
[2024-08-12 20:23] VITALS: BP 113/56; PULSE 88
--- NOTE | 2024-08-12 20:35 | P.PN_ITS ---
POLICE CAPTAIN PRECINCT Subjective Subjective: Interval history: 23 y.o. G1 EDC December 15, 2024 At 22 w 1 d + movements Was doing well until this afternoon when she was preparing dog food for her dogs when the odor induced her to vomit once that was tinged with blood No further vomiting No nausea + left upper quadrant pain No vaginal bleeding Vitals/I&O/Wt Last Vital Signs Pulse 80 08/12/24 20:42 BP 113/55 08/12/24 20:42 Pulse Ox 95 08/12/24 20:42 Weight last 48 hrs Weight 132 lb 5 oz Physical Exam Narrative: Weight 235 lbs; 5?5? VS normal General comfortable, in no distress Abd: soft, nontender. No tenderness on palpation FHTs normal Ext: normal A&P Assessment and plan (1) : 22 w 1 d Episode of vomiting Plan to discharge to home Return if vomiting recurs LUQ pain Normal clinical exam Likely muscle strain Return if pain persists Qualifiers: Weeks of gestation: 10 weeks Qualified Code(s): Z3A.10 - 10 weeks gestation of PDMP PDMP Reviewed: Not Reviewed Attestations Medical Necessity Statement*: patient at 22 weeks with vomiting Coding Level of Care Code Acute Code for Chg Fwd Diagnoses 10 weeks gestation of Z3A.10 Weeks of gestation: 10 weeks Time Spent (min) 60
[2024-08-12 20:38] VITALS: BP 113/55; PULSE 80
[2024-08-12 20:42] VITALS: BP 113/55; PULSE 80; O2SAT 95
== END 2024-08-12 20:58 | disposition home or self-care (01) ==
LOC: OBGYN 20:40 → OPOB 08-13 06:13
PROVIDERS: PCP Family Medicine; Visit Provider Obstetrics & Gynecology
DX: O21.9 Vomiting of pregnancy, unspecified (principal); Z3A.22 22 weeks gestation of pregnancy
CPT/HCPCS: 99211

== ENCOUNTER → 2024-09-04 08:05 | Outpatient (BNVA) | payer MEDICAID, SELFPAY | PROVIDERS: PCP Family Medicine; Visit Provider Obstetrics & Gynecology | DX: Z34.90 Encounter for supervision of normal pregnancy, unspecified, unspecified trimester (principal); Z3A.27 27 weeks gestation of pregnancy | CPT/HCPCS: 76816; 84315; 87086 ==

== ENCOUNTER 2024-09-14 13:26 | Outpatient (CLI) | payer MEDICAID, SELFPAY ==
[2024-09-14] VITALS (9 sets, daily range): BP systolic 123–160; BP diastolic 56–74; PULSE 88–111; RESP 15–16; BMI 40.4
[2024-09-14 14:13] LABS: Basophils % 0.2 %; Eosinophils # 0.1 10^3/uL (0.0-0.8); Eosinophils % 1.2 %; Hematocrit 33.2 % (36-47); Lymphocytes # 2.6 10^3/uL (0.8-4.8); Lymphocytes % 27.5 %; Mean Corpuscular HGB Conc 32.8 g/dL (30-55); Mean Corpuscular Hemoglobin 30.4 pg (27-33); Mean Corpuscular Volume 92.7 fl (85-98); Mean Platelet Volume 9.1 fL (7.4-10.4); Monocytes # 0.4 10^3/uL (0.2-0.9); Monocytes % 4.2 %; Neutrophils # 6.16 10^3/uL (1.8-7.7); Neutrophils % 66.1 %; Nucleated Red Blood Cells % 0 %; Platelet Count 268 10^3/cmm (157-399); Red Blood Count 3.58 10^6/uL (3.85-5.65); Red Cell Distribution Width 13.5 % (12.1-15.1); White Blood Count 9.31 10^3/uL (3.29-11.43)
[2024-09-14 14:19] LABS: Bilirubin Urine Negative (Negative); Blood Urine Negative (Negative); Glucose Urine UA Negative (Normal); Ketones Urine Negative (Negative); Leukocyte Esterase Urine Negative (Negative); Nitrate Urine Negative (Negative); Protein Urine Negative (Negative); Specific Gravity, Urine 1.009 (1.005-1.030); Urine Appearance Clear (CLEAR); Urine Color Yellow (Yellow); Urobilinogen Urine 0.2 mg/dL (Negative); pH Urine 7.5 (5-7)
[2024-09-14 14:24] LABS: Add Urine Microscopic? YES; Bacteria Urine 1+ /hpf; RBC Urine 0-2 /hpf (0-2); Squamous Epithelial Cell Urine 0-5 /hpf (0-5); WBC Urine 0-5 /hpf (0-5)
[2024-09-14 14:30] LABS: Alanine Aminotransferase 11 U/L (0-33); Albumin Level 3.5 g/dL (3.5-5.2); Alkaline Phosphatase 85 U/L (35-105); Anion Gap 15.4 (5-19); Aspartate Amino Transferase 12 U/L (0-32); Blood Urea Nitrogen 5 mg/dL (6-20); Calcium 8.7 mg/dL (8.5-10.5); Carbon Dioxide 22 mmol/L (22-29); Chloride 103 mmol/L (98-107); Creatinine Clr Calc Pharmacy 268.0318; Globulin 2.6 g/dL (1.3-4.6); Glomerular Filtration Rate 196.1 mL/min (90-130); Glucose 115 mg/dL (65-115); Osmolality Calculated 282 mOsm/kg (285-295); Potassium 3.4 mmol/L (3.5-5.1); Sodium 137 mmol/L (136-145); Total Bilirubin 0.2 mg/dL (0.15-1.2); Total Protein 6.1 g/dL (6.6-8.7); Uric Acid 4.2 mg/dL (2.4-5.7)
[2024-09-14 14:36] LABS: UPRO/UCREAT Ratio 0.13 mg/mg CR; Urine Creatinine 46 mg/dL (28-217); Urine Protein Random 6 mg/dL
== END 2024-09-14 15:08 | disposition home or self-care (01) ==
LOC: OPOB 13:26 → OBGYN 13:27
PROVIDERS: PCP Family Medicine; Visit Provider Obstetrics & Gynecology
DX: O36.8190 Decreased fetal movements, unspecified trimester, not applicable or unspecified (principal); Z3A.00 Weeks of gestation of pregnancy not specified
CPT/HCPCS: 36415; 59025; 80053; 81001; 82570; 84156; 84550; 85025; 99211

== ENCOUNTER → 2024-09-27 15:05 | Outpatient (BNVA) | payer MEDICAID, SELFPAY | PROVIDERS: PCP Family Medicine; Visit Provider Obstetrics & Gynecology | DX: Z34.90 Encounter for supervision of normal pregnancy, unspecified, unspecified trimester (principal) | CPT/HCPCS: 82950; 84315 ==

== ENCOUNTER → 2024-10-05 08:20 | Outpatient (BNVA) | payer MEDICAID, SELFPAY | PROVIDERS: PCP Family Medicine; Visit Provider Obstetrics & Gynecology | DX: Z3A.10 10 weeks gestation of pregnancy (principal) | CPT/HCPCS: 82951; 82952 ==

== ENCOUNTER → 2024-10-11 13:17 | Outpatient (BNVA) | payer MEDICAID, SELFPAY | PROVIDERS: PCP Family Medicine; Visit Provider Obstetrics & Gynecology | DX: Z34.90 Encounter for supervision of normal pregnancy, unspecified, unspecified trimester (principal) | CPT/HCPCS: 84315 ==

== ENCOUNTER → 2024-10-25 13:51 | Outpatient (BNVA) | payer MEDICAID, SELFPAY | PROVIDERS: PCP Family Medicine; Visit Provider Obstetrics & Gynecology | DX: Z34.90 Encounter for supervision of normal pregnancy, unspecified, unspecified trimester (principal) | CPT/HCPCS: 84315 ==

== ENCOUNTER → 2024-11-08 13:43 | Outpatient (BNVA) | payer MEDICAID, SELFPAY | PROVIDERS: PCP Family Medicine; Visit Provider Nurse Practitioner Women's Health | DX: Z34.00 Encounter for supervision of normal first pregnancy, unspecified trimester (principal); Z36.9 Encounter for antenatal screening, unspecified | CPT/HCPCS: 76816; 84315 ==

== ENCOUNTER → 2024-11-21 13:52 | Outpatient (BNVA) | payer MEDICAID, SELFPAY | PROVIDERS: PCP Family Medicine; Visit Provider Nurse Practitioner Women's Health | DX: Z34.90 Encounter for supervision of normal pregnancy, unspecified, unspecified trimester (principal) | CPT/HCPCS: 84315; 87081 ==

== ENCOUNTER → 2024-11-29 14:33 | Outpatient (BNVA) | payer MEDICAID, SELFPAY | PROVIDERS: PCP Family Medicine; Visit Provider Obstetrics & Gynecology | DX: Z34.90 Encounter for supervision of normal pregnancy, unspecified, unspecified trimester (principal) | CPT/HCPCS: 84315 ==

== ENCOUNTER 2024-12-03 14:20 | Outpatient (CLI) | payer MEDICAID, SELFPAY ==
[2024-12-03] VITALS (9 sets, daily range): BP systolic 108–145; BP diastolic 59–90; PULSE 86–103; RESP 16; BMI 41.5
== END 2024-12-03 16:41 | disposition home or self-care (01) ==
LOC: OPOB 14:21 → OBGYN 14:21
PROVIDERS: PCP Family Medicine; Visit Provider Obstetrics & Gynecology
DX: O16.9 Unspecified maternal hypertension, unspecified trimester (principal); Z3A.00 Weeks of gestation of pregnancy not specified
CPT/HCPCS: 59025; 99211

== ENCOUNTER → 2024-12-06 14:30 | Outpatient (BNVA) | payer MEDICAID, SELFPAY | PROVIDERS: PCP Family Medicine; Visit Provider Obstetrics & Gynecology | DX: Z34.93 Encounter for supervision of normal pregnancy, unspecified, third trimester (principal) | CPT/HCPCS: 84315 ==

== ENCOUNTER 2024-12-12 05:00 | Outpatient (CLI) | payer MEDICAID, SELFPAY ==
[2024-12-12] VITALS (11 sets, daily range): BP systolic 126–178; BP diastolic 62–98; PULSE 80–98; BMI 42.3
[2024-12-12] MEDS: ondansetron hcl ODT 4 mg Tab PO (07:12)
== END 2024-12-12 10:00 | disposition home or self-care (01) ==
LOC: OPOB 05:10 → OBGYN 05:11
PROVIDERS: PCP Family Medicine; Visit Provider Obstetrics & Gynecology
DX: O26.899 Other specified pregnancy related conditions, unspecified trimester (principal); Z3A.00 Weeks of gestation of pregnancy not specified; R10.9 Unspecified abdominal pain
CPT/HCPCS: 59025; 99211; Q0162

== ENCOUNTER 2024-12-14 07:12 | Inpatient (IN) | payer MEDICAID, SELFPAY ==
[2024-12-13 19:56] VITALS: BP 170/93; PULSE 90
[2024-12-13 19:58] VITALS: RESP 16
[2024-12-13 19:59] VITALS: BMI 42.7
[2024-12-13 20:11] VITALS: BP 153/89; PULSE 86
[2024-12-13 20:25] VITALS: BP 148/84; PULSE 81
--- NOTE | 2024-12-13 21:20 | P.HP_ITS ---
Providers/Chief Complaint 2 Admitting Physician: Cali Chacon MD Primary PHARMACY TECHNICIAN INSTRUCTOR: Cali Chacon MD Primary Care Provider: Kelly Zamora DO Chief Complaint: Contractions HPI PHARMACY TECHNICIAN INSTRUCTOR History of Present Illness Mary Jimenez is a 24 year old female G1 EDC December 15, 2024 At 39 w 5 d No complications Presented to L&D c/o painful uterine contractions No bleeding or fluid leakage + movements Present Details : 1 Para: 0 Labs Rubella: Immune RPR: Negative GBS: Positive Medications/Allergies Home Medications ?Medication ?Instructions ?Recorded ?Confirmed ?Last Taken ?Type cetirizine 10 mg capsule (Zyrtec) 10 mg PO DAILY PRN b reathing 08/06/22 12/13/24 1 Day Ago Rx allergic #30 caps ~12/11/24 metoprolol tartrate 25 mg tablet 12.5 mg (1/2 x 25 mg) PO BID #30 03/23/24 12/13/24 12/11/24 22:00 Rx tabs docosahexaenoic acid 200 mg 1 mg PO DAILY 04/24/24 1 Day Ago History capsule ( DHA) ~12/11/24 Allergies Allergy/AdvReac Type Severity Reaction Status Date / Time prednisone Allergy Mild ALGY-Hives Verified 12/13/24 14:43 Penicillins Allergy ALGY-Hives Verified 12/13/24 14:43 PFSH PHARMACY TECHNICIAN INSTRUCTOR 2 PFSH: Medical History Encounter to establish care Migraine headache Reactive airway disease No pertinent past medical history neghx: htn,dm,thyroid,dvt/pe PCP: none C. difficile colitis (~04/2021) Anxiety GERD (gastroesophageal reflux disease) Surgical History History of knee surgery History of tonsillectomy Hx of anterior cruciate ligament tear reconstruction Status post colonoscopy (05/15/21) H/O esophagogastroduodenoscopy (05/15/21) History of tonsillectomy and adenoidectomy Family History Mother Diabetes Grandmother Diabetes Maternal Heart disease Maternal Hypercholesteremia Maternal Hypertension Maternal Thyroid disease Maternal Grandfather Diabetes Maternal Thyroid disease Maternal Denies family history of Colon cancer Ovarian cancer Hyperlipidemia Breast cancer Uterine cancer Stroke Social History Smoking and tobacco/nicotine status: never used tobacco/nicotine Alcohol intake: never Substance/Drug Use: never Adopted: No History History History 2 1 Term Miscarriages/Ectopic Living Children Care NELSON Calculator 2 Estimated Delivery Date Method Current WG Current Estimate 12/15/24 LMP (Certain) 39w 6d Other Estimates 12/16/24 Ultrasound #1 39w 5d Specific Issues/Plans * * HEART PALPITATIONS: Followed by Dr. Oliveira, found to have significant heart murmur, echo showed normal heart function, cardiac event monitor showed occasional tachycardia during times of dizziness * UTI IN : Nitrates + 07/06/24, macrobid sent. Repeat culture on 09/04/24 was contaminated, Nitrates and leuks negative on UAs since 09/27/24 * FAMILY HX OF DIABETES: early 1 hr gct was normal, 28 week gct 146, 3 hr gtt WNL * MACROSOMIA: US on 11/08/24 FW 94th percentile at 34w5d, US on 09/04/2024 FW 83rd percentile at 27w0d * GROUP B STREP POSITIVE Vitals/I&O/Wt Last Vital Signs Pulse 92 12/14/24 04:38 Resp 16 12/13/24 19:58 BP 117/60 12/14/24 04:38 Pulse Ox 98 12/14/24 00:32 O2 Del Method Room Air 12/13/24 22:40 Weight last 48 hrs Weight 257 lb Physical Exam 2 Narrative: Weight 257 lbs; 5?5? VS normal General awake, alert Lungs clear Cor RRR Abd: nontender Cervix: 3 cm / 90% / -2 Ext: normal External monitor: regular UCs heart tracing good variability, + accelerations Urinary Catheter Management: Altamirano: Cath Placed During This Visit: yes Urinary Catheter Date of Insertion: 12/14/24 Urinary Catheter Time of Insertion: 01:40 Data 12/13/24 20:50 Results Labs OB ([facility]): 2 Obstetrics US 11/08/24 Blood Type B Positive 12/13/24 Antibody Screen Negative 12/13/24 Hct, (36-47) 37.5 % 12/13/24 Hgb, (11.27-16.99) 12.50 g/dL 12/13/24 Rho(D) Type Rh positive 12/13/24 Plt Count, (157-399) 291 10^3/cmm 12/13/24 Hep Bs Antigen, (Nonreactive) Non-reactive 05/22/24 Hepatitis C Antibody, (Nonreactive) Non-reactive 04/29 11/18 Rubella IgG Antibody, (0.0-10.0) 86.9 IU/mL H RPR, (Nonreactive) Nonreactive 05/22/24 HIV 1&2 Ab & HIV 1 Ag, (Non-Reactiv) Non-reactive TSH, (0.27-4.20) 1.42 uIU/mL 05/22/24 Free T4, (0.82-1.77) 1.19 ng/dL 01/27/24 C.trachomatis RNA (TMA), (NOT DETECTED) Not detected 05/22/24 N.gonorrhoeae RNA (TMA), (NOT DETECTED) Not detected 05/22/24 T. vaginalis Amp RNA, (NOT DETECTED) Not detected Chlamydia/GC Comment See note 05/22/24 Glucose Tolerance mg/dL 10/05/24 Glucose 1 Hr 50 gm, (85-140) 147 mg/dL H 09/27/24 Hemoglobin A1c, (4.0-6.0) 4.9 % 01/27/24 Uric Acid, (2.4-5.7) 4.2 mg/dL 09/14/24 Ser , Semi-Qnt 70596.00 mIU/mL 04/24/24 HCG, Qual, (Negative) Positive H 04/24/24 Urine Opiates Screen, (Negative) Negative ng/mL 4 Ur Barbiturates Screen, (Negative) Negative ng/mL 05/22 Ur Phencyclidine Scrn, (Negative) Negative ng/mL Ur Amphetamines Screen, (Negative) Negative ng/mL 05/22 U Benzodiazepines Scrn, (Negative) Negative ng/mL 05/22 Urine Cocaine Screen, (Negative) Negative ng/mL 4 U Marijuana (THC) Screen, (Negative) Negative ng/mL Micro Urine Specimen 09/04/24 Pap Smear Interpret See note 06/06/24 A&P Assessment and plan (1) : 39 w 5 d Active labor Plan admit Labor management (2) Group B streptococcal carriage complicating : Start Abx per protocol PDMP PDMP Reviewed: Not Reviewed Attestations 2 Medical Necessity Statement*: patient at 39 w 5 d with active labor Coding Level of Care Code Acute Code for Chg Fwd Diagnoses 10 weeks gestation of Z3A.10 Weeks of gestation: 10 weeks Group B streptococcal carriage complicating O99.820
[2024-12-13 22:56] LABS: Basophils % 0.3 %; Eosinophils # 0.1 10^3/uL (0.0-0.8); Eosinophils % 0.4 %; Hematocrit 37.5 % (36-47); Lymphocytes % 25.3 %; Mean Corpuscular HGB Conc 33.3 g/dL (30-55); Mean Platelet Volume 10.4 fL (7.4-10.4); Monocytes # 0.7 10^3/uL (0.2-0.9); Monocytes % 5.8 %; Neutrophils % 67.8 %; Nucleated Red Blood Cells % 0 %; Platelet Count 291 10^3/cmm (157-399); Red Blood Count 4.31 10^6/uL (3.85-5.65); Red Cell Distribution Width 13.5 % (12.1-15.1); White Blood Count 11.65 10^3/uL (3.29-11.43)
[2024-12-13] MEDS: clindamycin 900 MG/50 ML PREMIX 100 MG IV (23:22)
[2024-12-13] MEDS: dextrose 5%-lactated ringers 1,000 ML 125 ML IV (23:22)
[2024-12-14] VITALS (88 sets, daily range): BP systolic 103–169; BP diastolic 53–92; PULSE 64–117; RESP 16–18; TEMP 36.2–36.8; O2SAT 93–99
[2024-12-14] MEDS: ROPivacaine syringe 100 MG/50 ML SYRINGE 10 MG EPIDURAL ×5 (00:30→13:36)
--- NOTE | 2024-12-14 01:04 | ANES.PREANE2 ---
Pre-Anesthetic Assessment Height/Weight: Height 1.65 m Weight 116.573 kg Pulse Resp BP Pulse Ox O2 Del Method 80 16 134/75 98 Room Air 12/14/24 00:58 12/13/24 19:58 12/14/24 00:58 12/14/24 00:32 12/13/24 22:40 Preop Diagnosis: Labor epidural Familial anesthetic complications: none Was Beta Vinnie taken within 24 hours: N/A Was Clonidine taken within 24 hours: N/A Social No alcohol and No tobacco Exam alert, oriented x 3, clear to auscultation bilaterally and regular rate & rhythm Airway Cervical ROM: within normal limits Mallampati: Class II Dentition: full History/ROS No significant complaints Pulmonary None reported CV/HEM Murmur (asymptomatic) and Palpitations None reported Hepatic None reported GI Gastroesophageal Reflux Disease Metabolic Morbid Obesity [facility] None reported Neuropsych Anxiety Anesthetic Plan ASA status: 2 Anesthesia: Regional (specify below) (epidural) Risk of > 500 ml blood loss (7ml/kg in children): Yes, adequate IV access and fluids planned Medications/Allergies Home Medications ?Medication ?Instructions ?Recorded ?Confirmed ?Last Taken ?Type cetirizine 10 mg capsule (Zyrtec) 10 mg PO DAILY PRN breathing 08/06/22 12/13/24 1 Day Ago Rx allergic #30 caps ~12/11/24 metoprolol tartrate 25 mg tablet 12.5 mg (1/2 x 25 mg) PO BID #30 03/23/24 12/13/24 12/11/24 22:00 Rx tabs docosahexaenoic acid 200 mg 1 mg PO DAILY 04/24/24 12/13/24 1 Day Ago History capsule ( DHA) ~12/11/24 Allergies Allergy/AdvReac Type Severity Reaction Status Date / Time prednisone Allergy Mild ALGY-Hives Verified 12/13/24 14:43 Penicillins Allergy ALGY-Hives Verified 12/13/24 14:43 Current Medications Generic Name Dose Route Start Last Admin Trade Name Freq PRN Reason Stop Dose Admin Dextrose/Lactated Ringer's 1,000 mls @ 125 mls/hr 12/13/24 22:45 12/13/24 23:22 Dextrose 5%-Lactated Ringers IV 125 mls/hr .Q8H MIROSLAVA Administration Clindamycin HCl/Dextrose 900 mg in 50 mls @ 100 mls/hr 12/13/24 22:45 12/13/24 23:22 Cleocin IV 100 mls/hr Q8H MIROSLAVA Administration Protocol [facility] Anesthesia Medical History Encounter to establish care Migraine headache Reactive airway disease No pertinent past medical history neghx: htn,dm,thyroid,dvt/pe PCP: none C. difficile colitis (~04/2021) Anxiety GERD (gastroesophageal reflux disease) Surgical History History of knee surgery History of tonsillectomy Hx of anterior cruciate ligament tear reconstruction Status post colonoscopy (05/15/21) H/O esophagogastroduodenoscopy (05/15/21) History of tonsillectomy and adenoidectomy Family History Mother Diabetes Grandmother Diabetes Maternal Heart disease Maternal Hypercholesteremia Maternal Hypertension Maternal Thyroid disease Maternal Grandfather Diabetes Maternal Thyroid disease Maternal Denies family history of Colon cancer Ovarian cancer Hyperlipidemia Breast cancer Uterine cancer Stroke Social History Smoking and tobacco/nicotine status: never used tobacco/nicotine Alcohol intake: never Substance/Drug Use: never Adopted: No Female Reproductive History : 1 Spontaneous abortions: No Data Anesthesia 12/13/24 20:50 Short CBC 12/13/24 Range/Units 20:50 WBC 11.65 H (3.29-11.43) 10^3/uL Hgb 12.50 (11.27-16.99) g/dL Hct 37.5 (36-47) % MCV 87.0 (85-98) fl Plt Count 291 (157-399) 10^3/cmm Neut % (Auto) 67.8 % Neut # (Auto) 7.90 H (1.8-7.7) 10^3/uL Blood Bank 12/13/24 20:50 Blood Type B Positive Rho(D) Type Rh positive Antibody Screen Negative Cardiac Studies: Echocardiogram 08/11/24 Cardiac Event Monitor 07/18/24 Holter Monitor 07/02/22 Anesthesia Procedures Epidural Time Out Performed: Yes Consents Signed: Procedure Consent Consent: from patient Lumbar Level: L4-L5 Epidural position: sitting Epidural procedure: sterile prep of area, 1% lidocaine to numb the area, 18 g needle, negative for paresthesia passed, neg for paresthesia, test dose given, 1.5% xylocaine 1:200k epi, 0.2% Ropivacaine bolus ml, placed PCEA, no systemic response, sterile dressing applied, L.U.D. no apparent complications and 0.2% Ropiavacaine @ mls/hr (10)
[2024-12-14] MEDS: calcium carbonate 500 mg Chew Tablet 1000 MG PO ×2 (03:36→08:10)
[2024-12-14] MEDS: clindamycin 900 MG/50 ML PREMIX 100 MG IV ×2 (06:20→13:37)
[2024-12-14] MEDS: dextrose 5%-lactated ringers 1,000 ML 125 ML IV (08:10)
--- NOTE | 2024-12-14 14:10 | PM.DELIVERY ---
Delivery Note: Date of delivery: December 14, 2024 Pre-delivery diagnoses: 39 w 5 d active labor pitocin augmentation Post-delivery diagnoses: 39 w 5 d active labor pitocin augmentation vaginal delivery repair of third-degree perineal laceration Procedure: pitocin augmentation vaginal delivery repair of third-degree perineal laceration Op report anesthesia: Epidural Delivering Physician: Cali Chacon MD Estimated blood loss (mL): 300 Findings: , vigorous infant Cord gases and blood obtained Normal placenta and cord No episiotomy Third-degree perineal laceration repaired EBL: 300 cc No complications Pre-Delivery Course: normal labor course fetus reassuring throughout Delivery: vaginal Post-Delivery Status: good History History History 1 Term Miscarriages/Ectopic Living Children A&P Assessment and plan (1) Vaginal delivery: PDMP PDMP Reviewed: Not Reviewed Coding Level of Care Code Acute Code for Chg Fwd Diagnoses Vaginal delivery O80
[2024-12-14] MEDS: oxytocin 30 UNIT/500 ML BAG 600 UNIT IV (14:26)
[2024-12-14] MEDS: lidocaine 2% INJ 20 mL INJECTION (14:34)
[2024-12-14] MEDS: HYDROcodone-acetaminophen 5-325 mg Tablet PO ×2 (16:43→23:06)
[2024-12-14] MEDS: lanolin oint 7 gm 1 APPLIC TOPICAL (16:44)
[2024-12-14] MEDS: benzocaine-menthol 78 gm Canister 1 SPRAY TOPICAL (16:44)
--- NOTE | 2024-12-14 16:53 | PC.NURSE ---
Pt assisted up to bathroom without difficulty. Lamar care discussed and performed. Pad and gown changed. Dermoplast and ice pack provided. Pain medication provided for perineal discomfort.
[2024-12-14] MEDS: docusate sodium 100 mg Capsule PO (18:18)
--- NOTE | 2024-12-14 18:40 | PC.NURSE ---
ambulated to OB9 for post stay
[2024-12-14] MEDS: ibuprofen 800 mg tablet PO (21:17)
[2024-12-15] VITALS (14 sets, daily range): BP systolic 109–177; BP diastolic 71–135; PULSE 79–112; RESP 14–18; TEMP 36.7–36.8; O2SAT 97–99
[2024-12-15 04:40] LABS: Hematocrit 24.8 % (36-47); Mean Corpuscular HGB Conc 33.9 g/dL (30-55); Mean Corpuscular Volume 88.6 fl (85-98); Platelet Count 201 10^3/cmm (157-399); Red Cell Distribution Width 13.9 % (12.1-15.1); White Blood Count 14.47 10^3/uL (3.29-11.43)
--- NOTE | 2024-12-15 08:00 | ANE.PACU2 ---
Inpatient post-anesthesia follow up: Airway intact: Yes Vital signs: Temperature 98.3 F Pulse Rate 99 Respiratory Rate 17 Blood Pressure 141/94 Pulse Oximetry 97 Oxygen Delivery Me thod Room Air Oxygen Flow Rate Fraction of Inspir ed Oxygen Hydration adequate: Yes Nausea and vomiting: No Pain level: 1 Mental status: Baseline Epidural Start/End: Epidural Start Date: 12/14/24 Epidural Start Time: 00:25 Epidural End Date: 12/14/24 Epidural End Time: 16:25
[2024-12-15] MEDS: PRENATAL VIT NO.130/IRON/FOLIC 1 EACH TABLET PO (08:04)
[2024-12-15] MEDS: docusate sodium 100 mg Capsule PO ×2 (08:04→17:08)
[2024-12-15] MEDS: ibuprofen 800 mg tablet PO ×3 (08:05→21:18)
[2024-12-15] MEDS: HYDROcodone-acetaminophen 5-325 mg Tablet PO ×2 (08:08→15:56)
[2024-12-15 09:07] LABS: Basophils % 0.2 %; Eosinophils # 0.1 10^3/uL (0.0-0.8); Eosinophils % 0.5 %; Hematocrit 25.7 % (36-47); Lymphocytes % 24.3 %; Mean Corpuscular HGB Conc 33.5 g/dL (30-55); Mean Corpuscular Hemoglobin 29.4 pg (27-33); Mean Corpuscular Volume 87.7 fl (85-98); Mean Platelet Volume 9.6 fL (7.4-10.4); Monocytes # 0.6 10^3/uL (0.2-0.9); Monocytes % 4.9 %; Neutrophils % 69.7 %; Nucleated Red Blood Cells % 0 %; Platelet Count 200 10^3/cmm (157-399); Red Blood Count 2.93 10^6/uL (3.85-5.65)
[2024-12-15 09:24] LABS: Alanine Aminotransferase 7 U/L (0-33); Albumin Level 2.9 g/dL (3.5-5.2); Alkaline Phosphatase 124 U/L (35-105); Anion Gap 15.6 (5-19); Aspartate Amino Transferase 16 U/L (0-32); Blood Urea Nitrogen 9 mg/dL (6-20); Calcium 8.8 mg/dL (8.5-10.5); Carbon Dioxide 21 mmol/L (22-29); Chloride 106 mmol/L (98-107); Creatinine Clr Calc Pharmacy 138.3639; Globulin 2.6 g/dL (1.3-4.6); Glomerular Filtration Rate 88.1 mL/min (90-130); Glucose 100 mg/dL (65-115); Osmolality Calculated 287 mOsm/kg (285-295); Potassium 3.6 mmol/L (3.5-5.1); Sodium 139 mmol/L (136-145); Total Bilirubin 0.2 mg/dL (0.15-1.2); Total Protein 5.5 g/dL (6.6-8.7); Uric Acid 8.2 mg/dL (2.4-5.7)
--- NOTE | 2024-12-15 09:56 | P.PN_ITS ---
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 Patient doing well and without complaints. Patient's blood pressure has been elevated the last several hours (177/135, 167/114) Patient denies headaches, blurred vision, chest pain she does admit to occasional episode of shortness of breath but has history of SVT and currently takes metoprolol tartrate. Discussed with patient in great detail hypertension (preeclampsia) and risk of seizure activity. Explained if next blood pressure remains elevated magnesium sulfate therapy is indicated to decrease seizure risk. May also need hypertensive medications to lower blood pressure ranges into normal range. Explained that this may also put patient at increased risk for future hypertension and also elevated blood pressures during her next . I discussed with her the drowsiness, internal hot flashes and just generalized fatigue feeling that magnesium can cause. Patient understands. Labor: Station: +1 Amniotic Membrane Status: Ruptured Monitor Mode: Palpation Contraction Pattern: Regular Status: Category I Vitals/I&O/Wt Last Vital Signs Temp 98.0 F 12/15/24 08:10 Pulse 90 12/15/24 04:24 Resp 18 12/15/24 08:25 BP 167/114 12/15/24 08:25 Pulse Ox 99 12/15/24 04:24 O2 Del Method Room Air 12/15/24 04:24 12/14/24 12/15/24 12/15/24 22:59 06:59 14:59 Intake Total 1500 / 2788 Balance 1500 / 2188 Weight last 48 hrs Weight 116.573 kg Physical Exam 2 Cardio: COMMON NORMALS: regular rate and regular rhythm RATE: regular rate RHYTHM: regular rhythm Back/Pelvis: OTHER: Abdomen?soft, fundus firm. Lochia?rubra, light. Urinary Catheter Management: Altamirano: Cath Placed During This Visit: yes, but has since been removed by the nurse Reason for Continuing Indwelling Catheter: Decision to DC Catheter Urinary Catheter Date of Insertion: 12/14/24 Urinary Catheter Time of Insertion: 01:40 Date Urinary Catheter Removed: 12/14/24 Time Urinary Catheter Discontinued: 13:20 Data 12/15/24 08:58 12/15/24 08:58 A&P Assessment and plan (1) Preeclampsia in period: Will start magnesium sulfate 4 g bolus, 2 g maintenance. (2) Vaginal delivery: 1.. 24-year-old G1, P1 s/p viable male with history of SVT. 2. Acute blood loss anemia?asymptomatic (3) Group B streptococcal carriage complicating : (4) Migraine headache: (5) Heart murmur: (6) Palpitation: (7) Anemia: Asymptomatic (hemoglobin 8.6/hematocrit 25.7) PDMP PDMP Reviewed: Not Reviewed Attestations 2 Medical Necessity Statement*: Patient admitted to labor and delivery in active labor, labor augmented with Pitocin. Patient delivered via . Now experiencing elevated blood pressures we will treat if indicated. Coding Level of Care Code Acute Code for Chg Fwd Diagnoses Preeclampsia in period O14.95 Vaginal delivery O80 Group B streptococcal carriage complicating O99.820 Migraine headache G43.909 Heart murmur R01.1 Palpitation R00.2 Anemia D64.9
--- NOTE | 2024-12-15 13:21 | PM.OBGYPN ---
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 Patient was advised of possible need for treatment with magnesium sulfate and hypertensive medications. After changing of patient's blood pressure cuff to us larger size blood pressure ranges were normal. Therefore we will hold on treatment with magnesium sulfate and hypertensive medication. Labor: Station: +1 Amniotic Membrane Status: Ruptured Monitor Mode: Palpation Contraction Pattern: Regular Status: Category I Vitals/I&O/Wt Last Vital Signs Temp 98.0 F 12/15/24 08:10 Pulse 96 12/15/24 11:04 Resp 16 12/15/24 11:04 BP 120/81 12/15/24 11:04 Pulse Ox 99 12/15/24 11:04 O2 Del Method Room Air 12/15/24 11:04 12/14/24 12/15/24 12/15/24 22:59 06:59 14:59 Intake Total 1500 / 2788 Balance 1500 / 2188 Weight last 48 hrs Weight 116.573 kg Physical Exam Urinary Catheter Management: Altamirano: Cath Placed During This Visit: yes, but has since been removed by the nurse Reason for Continuing Indwelling Catheter: Decision to DC Catheter Urinary Catheter Date of Insertion: 12/14/24 Urinary Catheter Time of Insertion: 01:40 Date Urinary Catheter Removed: 12/14/24 Time Urinary Catheter Discontinued: 13:20 Data 12/15/24 08:58 12/15/24 08:58 A&P PDMP PDMP Reviewed: Not Reviewed Attestations Medical Necessity Statement*: care after Coding Level of Care Code Acute Code for Chg Fwd
--- NOTE | 2024-12-15 15:12 | PC.NURSE ---
0945: RN at bedside to update patient on plan of care and take vitals. Patient states she would like to wait to take vitals until she is done , as she had a difficult time getting baby to latch. RN states for patient to push call light when baby is done so vitals may be taken then.
[2024-12-16 05:05] VITALS: BP 129/87; PULSE 83; RESP 17; O2SAT 98
[2024-12-16] MEDS: HYDROcodone-acetaminophen 5-325 mg Tablet PO (06:48)
[2024-12-16] MEDS: ibuprofen 800 mg tablet PO (09:11)
[2024-12-16] MEDS: PRENATAL VIT NO.130/IRON/FOLIC 1 EACH TABLET PO (09:11)
[2024-12-16] MEDS: docusate sodium 100 mg Capsule PO (09:11)
[2024-12-16 09:13] VITALS: BP 141/94; PULSE 99; RESP 17; TEMP 36.8; O2SAT 97
--- NOTE | 2024-12-16 09:34 | PM.OBGYDC ---
Discharge Providers [employer] Date of Admission: 12/14/24 07:12 Date of Discharge: 12/16/24 Attending Provider at Admission: Cali Chacon MD Attending Provider at Discharge: Cali Chacon MD Primary Care Provider: Kelly Zamora DO Diagnoses at Discharge Discharge Diagnosis (1) Preeclampsia in period: Details from hospital stay: Patient had elevated blood pressures x 2 on 12/15/2024. Nursing staff changed blood pressure cuffs blood pressure were monitored throughout the day and remained in normal range. Therefore the diagnosis of preeclampsia was misdiagnosed. Therefore patient was not treated with magnesium sulfate or any hypertensive medications. Status: Acute (2) Vaginal delivery: Status: Acute (3) Group B streptococcal carriage complicating : Status: Acute (4) Migraine headache: Status: Acute (5) Heart murmur: Status: Acute (6) Palpitation: Status: Acute (7) Anemia: Status: Acute Reason for Visit Reason for Visit: Contractions Hospital Course Hospital Course 24-year-old female G1, P1 s/p with third-degree extension after induction of labor. Patient's labor and stay has progressed well without complications. Patient denies headaches, blurred vision, chest pain or shortness of breath. Patient is breast-feeding, and bonding well with infant. VSS, afebrile Exam?unremarkable Discharge expectations were reviewed with patient in great extent to include no heavy lifting pushing or pulling no sexual intercourse x 6 weeks. Patient is to continue her home meds of vitamins metoprolol as prescribed. If patient has extreme headache, vision changes, severe abdominal pain or excessive vaginal bleeding patient is to call or return to the hospital. Information Peripartum Data: Infant Delivery Method: Vaginal Laceration description: Perineal - 3rd Degree complications: none Physical Exam Back/Pelvis: OTHER: Abdomen?soft, fundus firm 3 to 4 cm below umbilicus. Lochia?rubra light. Extremity: COMMON NORMALS: normal to inspection, no clubbing, cyanosis or edema and no calf tenderness Urinary Catheter Management: [place]: Cath Placed During This Visit: yes, but has since been removed by the nurse Reason for Continuing Indwelling Catheter: Decision to DC Catheter Urinary Catheter Date of Insertion: 12/14/24 Urinary Catheter Time of Insertion: 01:40 Date Urinary Catheter Removed: 12/14/24 Time Urinary Catheter Discontinued: 13:20 History History History 1 Term Miscarriages/Ectopic Living Children Discharge Data Studies Completed and Pending Laboratory Results WBC 12.20 10^3/uL (3.29-11.43) H 12/15/24 08:58 RBC 2.93 10^6/uL (3.85-5.65) L 12/15/24 08:58 Hgb 8.60 g/dL (11.27-16.99) L 12/15/24 08:58 Hct 25.7 % (36-47) L 12/15/24 08:58 MCV 87.7 fl (85-98) 12/15/24 08:58 MCH 29.4 pg (27-33) 12/15/24 08:58 MCHC 33.5 g/dL (30-55) 12/15/24 08:58 RDW 14.0 % (12.1-15.1) 12/15/24 08:58 Plt Count 200 10^3/cmm (157-399) 12/15/24 08:58 MPV 9.6 fL (7.4-10.4) 12/15/24 08:58 Neut % (Auto) 69.7 % 12/15/24 08:58 Lymph % (Auto) 24.3 % 12/15/24 08:58 [place] % (Auto) 4.9 % 12/15/24 08:58 Eos % (Auto) 0.5 % 12/15/24 08:58 Baso % (Auto) 0.2 % 12/15/24 08:58 Neut # (Auto) 8.50 10^3/uL (1.8-7.7) H 12/15/24 08:58 Lymph # (Auto) 3.0 10^3/uL (0.8-4.8) 12/15/24 08:58 [place] # (Auto) 0.6 10^3/uL (0.2-0.9) 12/15/24 08:58 Eos # (Auto) 0.1 10^3/uL (0.0-0.8) 12/15/24 08:58 Baso # (Auto) 0.0 10^3/uL (0.0-0.1) 12/15/24 08:58 Nucleated RBC % (auto) 0 % 12/15/24 08:58 Nucleated RBCs # 0.0 /100WBC 12/15/24 08:58 Sodium 139 mmol/L (136-145) 12/15/24 08:58 Potassium 3.6 mmol/L (3.5-5.1) 12/15/24 08:58 Chloride 106 mmol/L (98-107) 12/15/24 08:58 Carbon Dioxide 21 mmol/L (22-29) L 12/15/24 08:58 Anion Gap 15.6 (5-19) 12/15/24 08:58 BUN 9 mg/dL (6-20) 12/15/24 08:58 Creatinine 0.8 mg/dL (0.5-0.9) 12/15/24 08:58 GFR Calculation 88.1 mL/min (90-130) L 12/15/24 08:58 Glucose 100 mg/dL (65-115) 12/15/24 08:58 Calculated Osmolality 287 mOsm/kg (285-295) 12/15/24 08:58 Uric Acid 8.2 mg/dL (2.4-5.7) H 12/15/24 08:58 Calcium 8.8 mg/dL (8.5-10.5) 12/15/24 08:58 Total Bilirubin 0.2 mg/dL (0.15-1.2) 12/15/24 08:58 AST 16 U/L (0-32) 12/15/24 08:58 ALT 7 U/L (0-33) 12/15/24 08:58 Alkaline Phosphatase 124 U/L (35-105) H 12/15/24 08:58 Total Protein 5.5 g/dL (6.6-8.7) L 12/15/24 08:58 Albumin 2.9 g/dL (3.5-5.2) L 12/15/24 08:58 Globulin 2.6 g/dL (1.3-4.6) 12/15/24 08:58 Blood Type B Positive 12/13/24 20:50 Rho(D) Type Rh positive 12/13/24 20:50 Antibody Screen Negative 12/13/24 20:50 Vitals Last Vital Signs Temp 98.3 F 12/16/24 09:13 Pulse 99 12/16/24 09:13 Resp 17 12/16/24 09:13 BP 141/94 12/16/24 09:13 Pulse Ox 97 12/16/24 09:13 O2 Del Method Room Air 12/16/24 09:13 Results Labs OB ([facility]): Obstetrics US 11/08/24 Blood Type B Positive 12/13/24 Antibody Screen Negative 12/13/24 Hct, (36-47) 25.7 % L 12/15/24 Hgb, (11.27-16.99) 8.60 g/dL L 12/15/24 Rho(D) Type Rh positive 12/13/24 Plt Count, (157-399) 200 10^3/cmm 12/15/24 Hep Bs Antigen, (Nonreactive) Non-reactive 05/22/24 Hepatitis C Antibody, (Nonreactive) Non-reactive 05/22/24 Rubella IgG Antibody, (0.0-10.0) 86.9 IU/mL H 05/22/24 RPR, (Nonreactive) Nonreactive 05/22/24 HIV 1&2 Ab & HIV 1 Ag, (Non-Reactiv) Non-reactive 05/22/24 TSH, (0.27-4.20) 1.42 uIU/mL 05/22/24 Free T4, (0.82-1.77) 1.19 ng/dL 01/27/24 C.trachomatis RNA (TMA), (NOT DETECTED) Not detected 05/22/24 N.gonorrhoeae RNA (TMA), (NOT DETECTED) Not detected 05/22/24 T. vaginalis Amp RNA, (NOT DETECTED) Not detected 05/22/24 Chlamydia/GC Comment See note 05/22/24 Glucose Tolerance mg/dL 10/05/24 Glucose 1 Hr 50 gm, (85-140) 147 mg/dL H 09/27/24 Hemoglobin A1c, (4.0-6.0) 4.9 % 01/27/24 Uric Acid, (2.4-5.7) 8.2 mg/dL H 12/15/24 Ser , Semi-Qnt 34814.00 mIU/mL 04/24/24 HCG, Qual, (Negative) Positive H 04/24/24 Urine Opiates Screen, (Negative) Negative ng/mL 05/22/24 Ur Barbiturates Screen, (Negative) Negative ng/mL 05/22/24 Ur Phencyclidine Scrn, (Negative) Negative ng/mL 05/22/24 Ur Amphetamines Screen, (Negative) Negative ng/mL 05/22/24 U Benzodiazepines Scrn, (Negative) Negative ng/mL 05/22/24 Urine Cocaine Screen, (Negative) Negative ng/mL 05/22/24 U Marijuana (THC) Screen, (Negative) Negative ng/mL 05/22/24 Micro Urine Specimen 09/04/24 Pap Smear Interpret See note 06/06/24 Discharge Plan Discharge Patient Disposition: Home Condition: Stable Prescriptions: Continued Zyrtec 10 mg capsule 10 mg PO DAILY PRN (Reason: breathing allergic) Qty: 30 0RF metoprolol tartrate 25 mg tablet 12.5 mg PO BID Qty: 30 2RF DHA 200 mg capsule 1 mg PO DAILY Discharge Orders: Discharge Order (Routine); Ordered 12/16/24 Ordered By: Laurel Lange Referrals: Oneida Garcia NP [Nurse Practitioner, [employer]] - 01/25/25 1:45 pm Referral Note: * Your 6 week post op appointment is with Oneida Gallegos NP on 01/25/2025 at 1:45pm. Discharge Diet: Regular Discharge Activity: Increase activity as tolerated Patient Instructions: Depression (DC), Bleeding (DC), Preeclampsia and Eclampsia After Delivery (GEN), Hemorrhage (DC), OB Discharge Report, OB Food/Drug Interaction Guide, Opioid Safety, OB Home Care, OB [facility] Parent Packet, OB Vaginal Deliveries - [facility] Activity Restrictions/Additional Instructions: No heavy lifting pushing or pulling. No sexual intercourse x 6 weeks. Patient to continue a high-fiber diet with increased fluids. Patient to continue vitamins as long as she is breast-feeding. Patient to continue metoprolol until discontinued by a physician. Assessment: 1. S/p with third-degree extension 2. History of SVT?symptomatic 3. History of migraine headaches 4. History of GBS positive during 5. Asymptomatic anemia Plan of Treatment: Will DC to home. Follow-up in the women's clinic in 4 to 6 weeks. Discharge Attestations [employer] Time Spent in Discharge Care*: less than 30 min Coding Level of Care Code Acute Code for Chg Fwd Diagnoses Preeclampsia in period O14.95 Vaginal delivery O80 Group B streptococcal carriage complicating O99.820 Migraine headache G43.909 Heart murmur R01.1 Palpitation R00.2 Anemia D64.9
== END 2024-12-16 10:35 | disposition home or self-care (01) | DRG 768 ==
LOC: OPOB 07:12 → OBGYN 07:12
PROVIDERS: Obstetrics & Gynecology; Admitting Provider Obstetrics & Gynecology; PCP Family Medicine; Visit Provider Obstetrics & Gynecology
DX: O99.824 Streptococcus B carrier state complicating childbirth (principal); Z37.0 Single live birth; O99.42 Diseases of the circulatory system complicating childbirth; O70.20 Third degree perineal laceration during delivery, unspecified; Z3A.39 39 weeks gestation of pregnancy; O90.81 Anemia of the puerperium; D64.9 Anemia, unspecified; G43.909 Migraine, unspecified, not intractable, without status migrainosus; R01.1 Cardiac murmur, unspecified; R00.2 Palpitations; O99.354 Diseases of the nervous system complicating childbirth
CPT/HCPCS: 36415; 51702; 59025; 59409; 80053; 84315; 84550; 85025; 85027; 86850; 86900; 99211; J2590; J2795; J3490; J7121; J9999

== ENCOUNTER → 2025-02-16 10:51 | Outpatient (BNVA) | payer MEDICAID, SELFPAY | PROVIDERS: PCP Family Medicine | DX: K90.49 Malabsorption due to intolerance, not elsewhere classified (principal) | CPT/HCPCS: 86003; 86008 ==

== ENCOUNTER → 2025-05-28 10:38 | Outpatient (BNVA) | payer MEDICAID, SELFPAY | DX: D64.9 Anemia, unspecified (principal) | CPT/HCPCS: 82728; 83550; 85025 ==